=== PATIENT | male | born 1975 | race Caucasian/White ===

== ENCOUNTER 2024-10-08 09:02 | Emergency (ER) | payer OTHER, SELFPAY ==
[2024-10-08 09:06] VITALS: BP 137/89; PULSE 74; TEMP 36.7; O2SAT 100; BMI 21.3
--- NOTE | 2024-10-08 09:13 | ECG_ITS ---
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
[2024-10-08 09:26] LABS: Basophils Percent Auto 0.3 % (0.2-2.0); Eosinophils Percent Auto 0.5 % (0.9-7.0); Hematocrit 42.8 % (42.0-54.0); Hemoglobin 14.8 g/dL (14.0-18.0); Immature Granulocytes Abs Auto 0.04 10^3/uL (0.00-0.03); Immature Granulocytes Pct Auto 0.5 % (0.0-0.5); Lymphocytes Percent Auto 10.8 % (20.5-60.0); Mean Corpuscular HGB Conc 34.6 g/dL (29.9-35.2); Mean Corpuscular Hemoglobin 30.9 pg (25.9-34.0); Mean Corpuscular Volume 89.4 fL (80.0-94.0); Mean Platelet Volume 8.6 fL (9.5-13.5); Monocytes Absolute Auto 0.6 10^3/uL (0.3-0.8); Monocytes Percent Auto 7.1 % (1.7-12.0); Neutrophils Absolute Auto 7.2 10^3/uL (1.4-6.5); Neutrophils Percent Auto 80.8 % (43.0-75.0); Platelet Count 276 10^3/uL (150-450); Red Blood Count 4.79 10^6/uL (4.70-6.10); Red Cell Distribution Width 11.8 % (11.0-15.0); White Blood Count 8.9 10^3/uL (4.0-11.0)
[2024-10-08 09:42] LABS: INR 1.05; Prothrombin Time 11.1 sec (9.0-11.6)
[2024-10-08 09:47] LABS: Alanine Aminotransferase 66 U/L (16-63); Albumin Globulin Ratio 1.1; Albumin Level 3.5 g/dL (3.4-5.0); Alkaline Phosphatase 111 U/L (46-116); Aspartate Amino Transferase 55 U/L (15-37); BUN Creatinine Ratio 15.4; Bilirubin Total 1.2 mg/dL (0.2-1.0); Calcium 8.2 mg/dL (8.5-10.1); Chloride 100 mmol/L (98-107); Estimated GFR (African America >60 (>=60 mL/min/1.73m^2); Estimated GFR (Non-African Ame >60 (>=60 mL/min/1.73m^2); Globulin 3.1 g/dL; Glucose 119 mg/dL (74-106); Sodium 138 mmol/L (136-145); Total Protein 6.6 g/dL (6.4-8.2); Troponin I High Sensitivity 6.1 pg/mL (4.0-76.1)
--- NOTE | 2024-10-08 09:57 | CT_ITS ---
[address] [address] Patient Name: FRANTZ ALEXANDER MRN: [id number] date: 1975 Sex: M Assigned Patient Location: ER Current Patient Location: ER Accession/Order Number: [id number] Exam Date: 10/08/2024 10:35 Report Date: 10/08/2024 11:34 At the request of: FRANKI VALDOVINOS Procedure: CT abdomen pelvis w con EXAMINATION: CT abdomen pelvis w con HISTORY: pancreatitis hx abd pain COMPARISON: No relevant comparison available. TECHNIQUE: CT images were created with IV contrast. Axial, Coronal, and Sagittal images. Dose reduction techniques were achieved by using automated exposure control and/or adjustment of mA and/or kV according to patient size and/or use of iterative reconstruction technique. FINDINGS: LUNG BASES: No visible pulmonary or pleural disease. LIVER: No enlargement, atrophy, abnormal density, or significant focal lesion. BILIARY: No visible dilatation or calcification. PANCREAS: Enlargement of the pancreatic head with immature changes including edema and small amount of fluid. SPLEEN: No enlargement or focal lesion. ADRENALS: No mass or enlargement. KIDNEYS: No mass, obstruction, or calcification. BOWEL/MESENTERY: No visible mass, obstruction, or bowel wall thickening. Normal appendix AORTA/VASCULAR: No aneurysm or dissection. RETROPERITONEUM: No mass or adenopathy. LYMPH NODES: No adenopathy. URINARY BLADDER: No visible focal wall thickening, lesion, or calculus. PELVIC ORGANS: No visible mass. Pelvic organs appropriate for patient age. ABDOMINAL WALL: 2 cm umbilical hernia containing mesenteric fat without strangulation BONES: No bony lesion or fracture. OTHER: Negative. CT/CT abdomen pelvis w con IMPRESSION: Acute pancreatitis without evidence of pancreatic necrosis. Electronically authenticated by: LINO NICE Date: 10/08/2024 11:34
[2024-10-08] MEDS: 0.9 % SODIUM CHLORIDE 1,000 ML 1000 ML IV (10:18)
[2024-10-08] MEDS: ONDANSETRON PF 4 MG/2 ML VIAL IV (10:20)
[2024-10-08] MEDS: FAMOTIDINE/PF 20 MG/2 ML VIAL IV (10:21)
[2024-10-08] MEDS: KETOROLAC TROMETHAMINE 30 MG/ML VIAL 15 MG IVP (10:21)
[2024-10-08 10:23] VITALS: BP 137/84; PULSE 52; O2SAT 100
--- NOTE | 2024-10-08 11:47 | ED_ITS ---
HPI - Abdominal Pain General Chief Complaint: Abdominal Pain Stated Complaint: ABDOMINAL PAIN Time Seen by Provider: 10/08/24 09:13 Source: patient Mode of arrival: ambulance Limitations: no limitations History of Present Illness HPI narrative: The patient is a 49-year-old male who is coming to the ER with abdominal pain for the last few days he mentioned that he had a history of alcoholic pancreatitis He did drink significantly over the Patient complaining of epigastric discomfort and nausea He denies any fever or chills or any other concerns Related Data Home Medications ?Medication ?Instructions ?Recorded ?Confirmed alprazolam 1 mg tablet 1 mg PO QID 10/08/24 10/08/24 duloxetine 60 mg capsule,delayed 120 mg PO DAILY 10/08/24 10/08/24 release hydroxyzine pamoate 25 mg capsule 25 mg PO Q8H PRN anxiety 10/08/24 10/08/24 hydroxyzine pamoate 50 mg capsule 50 mg PO .QHS 10/08/24 10/08/24 omeprazole 40 mg capsule,delayed 40 mg PO DAILY 10/08/24 10/08/24 release trazodone 50 mg tablet 50 mg PO .QHS 10/08/24 10/08/24 Previous Rx's ?Medication ?Instructions ?Recorded famotidine 20 mg tablet (Pepcid) 20 mg PO BID #10 tabs 10/08/24 meloxicam 15 mg tablet 15 mg PO DAILY PRN pain #10 tabs 10/08/24 ondansetron 4 mg disintegrating 4 mg PO Q8H PRN nausea and 10/08/24 tablet vomiting #14 tabs Allergies Allergy/AdvReac Type Severity Reaction Status Date / Time No Known Drug Allergies Allergy Verified 10/08/24 09:03 Review of Systems ROS Status of ROS 10 or more systems reviewed and unremark able except as noted in history and below PFSH PFSH Social History Little interest or pleasure in doing things: not at all Feeling down, depressed, or hopeless: not at all Exam Narrative Exam Narrative: Nurses notes and vital signs reviewed and patient is not hypoxic. General: Well-appearing and in no apparent distress. Skin: Warm, dry, no pallor noted. No rash. Head: Normocephalic, atraumatic. Neck: Supple, non-tender. Eye: Pupils are equal, round and EOMI. No scleral icterus. Ears, Nose, Mouth, and Throat: TM are clear, no nasal mucosal hypertrophy. Oral mucosa is moist, no posterior oropharynx erythema, uvula is mid-line Cardiovascular: Regular Rate and Rhythm without murmur, gallop or rub. Respiratory: No accessory muscle use or respiratory distress. Lungs are clear to auscultation, no wheezing, rales or rhonchi Chest Wall: no tenderness Back: No midline thoracic or lumbar vertebral tenderness. No CVA tenderness Musculoskeletal: normal ROM, no calf or popliteal tenderness, no lower extremity edema/swelling GI: Abdomen is soft, there is discomfort upon palpation of the epigastric area but there is negative [place] and the patient have tenderness with fullness to the abdomen Neurological: A&O x4. No cranial nerve dysfunction observed. No truncal ataxia. Moves all extremities. Sensation intact. Psychiatric: Cooperative and interactive. Normal mood and affect. Constitutional Vital Signs, click to edit/add: Last Vital Signs Temp 98.0 F 10/08/24 09:06 Pulse 52 L 10/08/24 10:23 Resp 18 10/08/24 10:23 BP 137/84 10/08/24 10:23 Pulse Ox 100 10/08/24 10:23 O2 Del Method Room Air 10/08/24 10:23 Course Vital Signs Vital signs: Vital Signs Temperature 98.0 F 10/08/24 09:06 Pulse Rate 74 10/08/24 09:06 Respiratory Rate 20 10/08/24 09:06 Blood Pressure 137/89 10/08/24 09:06 Pulse Oximetry 100 10/08/24 09:06 Oxygen Delivery Method Room Air 10/08/24 09:06 Temperature 98.0 F 10/08/24 09:06 Pulse Rate 52 L 10/08/24 10:23 Respiratory Rate 18 10/08/24 10:23 Blood Pressure 137/84 10/08/24 10:23 Pulse Oximetry 100 10/08/24 10:23 Oxygen Delivery Method Room Air 10/08/24 10:23 MDM - Abdominal Pain MDM Narrative Medical decision making narrative: EKG in the ER showing sinus rhythm with a heart rate of [address] elevation or depression The patient blood workup shows no acute significant pathology regarding the CBC but the chemistry shows some elevated lipase and a picture of possible pancreatitis CT of the abdomen and pelvis with contrast shows pancreatitis with no cholecystitis The patient already tolerating p.o. intake he was feeling much better after being treated supportively with Zofran Right now the patient is feeling better and he wants to leave with Zofran and liquid diet for the next few days he was instructed about the importance of hydration and coming back in case of new symptoms The patient is to follow up with primary care physician in next 2-3 days or to return to the emergency department should any of the signs or symptoms worsen or new symptoms develop. The patient agrees with the following Diagnosis and Treatment plan and the patient will be discharged home. Lab Data Labs: Lab Results 10/08/24 Range/Units 09:20 WBC 8.9 (4.0-11.0) 10^3/uL RBC 4.79 (4.70-6.10) 10^6/uL Hgb 14.8 (14.0-18.0) g/dL Hct 42.8 (42.0-54.0) % MCV 89.4 (80.0-94.0) fL MCH 30.9 (25.9-34.0) pg MCHC 34.6 (29.9-35.2) g/dL RDW 11.8 (11.0-15.0) % Plt Count 276 (150-450) 10^3/uL MPV 8.6 L (9.5-13.5) fL Neut % (Auto) 80.8 H (43.0-75.0) % Lymph % (Auto) 10.8 L (20.5-60.0) % [place] % (Auto) 7.1 (1.7-12.0) % Eos % (Auto) 0.5 L (0.9-7.0) % Baso % (Auto) 0.3 (0.2-2.0) % Neut # (Auto) 7.2 H (1.4-6.5) 10^3/uL Lymph # (Auto) 1.0 L (1.2-3.8) 10^3/uL [place] # (Auto) 0.6 (0.3-0.8) 10^3/uL Eos # (Auto) 0.0 (0.0-0.7) 10^3/uL Baso # (Auto) 0.0 (0.0-0.1) 10^3/uL Abs Immat Gran (auto) 0.04 H (0.00-0.03) 10^3/uL Imm/Tot Granulo (auto) 0.5 (0.0-0.5) % PT 11.1 (9.0-11.6) sec INR 1.05 Sodium 138 (136-145) mmol/L Potassium 5.0 (3.5-5.1) mmol/L Chloride 100 (98-107) mmol/L Carbon Dioxide 31.0 (21.0-32.0) mmol/L Anion Gap 12.0 BUN 18.0 (7.0-18.0) mg/dL Creatinine 1.17 (0.70-1.30) mg/dL Est GFR ( Amer) >60 (>=60 mL/min/1.73m^2) Est GFR (Non-Af Amer) >60 (>=60 mL/min/1.73m^2) BUN/Creatinine Ratio 15.4 Glucose 119 H (74-106) mg/dL Calcium 8.2 L (8.5-10.1) mg/dL Magnesium 2.0 (1.8-2.4) mg/dL Total Bilirubin 1.2 H (0.2-1.0) mg/dL AST 55 H (15-37) U/L ALT 66 H (16-63) U/L Alkaline Phosphatase 111 (46-116) U/L Troponin I High Sens 6.1 (4.0-76.1) pg/mL Total Protein 6.6 (6.4-8.2) g/dL Albumin 3.5 (3.4-5.0) g/dL Globulin 3.1 g/dL Albumin/Globulin Ratio 1.1 Lipase 193.0 H (16.0-77.0) U/L Discharge Plan Discharge Chief Complaint: Abdominal Pain Clinical Impression: Acute alcoholic pancreatitis Patient Disposition: Home, Self-Care Time of Disposition Decision: 11:49 Condition: Good Prescriptions / Home Meds: New ondansetron 4 mg tablet,disintegrating 4 mg PO Q8H PRN (Reason: nausea and vomiting) Qty: 14 0RF famotidine [Pepcid] 20 mg tablet 20 mg PO BID Qty: 10 0RF meloxicam 15 mg tablet 15 mg PO DAILY PRN (Reason: pain) Qty: 10 0RF No Action alprazolam 1 mg tablet 1 mg PO QID duloxetine 60 mg capsule,delayed release(DR/EC) 120 mg PO DAILY hydroxyzine pamoate 25 mg capsule 25 mg PO Q8H PRN (Reason: anxiety) hydroxyzine pamoate 50 mg capsule 50 mg PO .QHS omeprazole 40 mg capsule,delayed release(DR/EC) 40 mg PO DAILY trazodone 50 mg tablet 50 mg PO .QHS Print Language: Belarusian Instructions: Pancreatitis (ED), Full Liquid Diet (DC) Referrals: Sai Santos NP [Primary Care Provider] - 1 week Discharge Date/Time: 10/08/24 12:23
== END 2024-10-08 12:23 | disposition home or self-care (01) ==
PROVIDERS: Emergency Provider Emergency Medicine; PCP Nurse Practitioner Family
DX: K85.20 Alcohol induced acute pancreatitis without necrosis or infection (principal)
CPT/HCPCS: 36415; 74177; 80053; 83690; 83735; 84484; 85025; 85610; 93005; 96374; 96375; 99285; J1885; J2405; Q9967

== ENCOUNTER 2024-10-15 11:05 | Outpatient (OUT) | payer OTHER, SELFPAY ==
--- OUTSIDE RECORDS SUMMARY | 2024-10-15 11:29 | XMS_ITS | CCD ---
Demographics Address [address] [place] [address] Home Phone Mobile Phone Preferred Language en Marital Status Single Jehovah'S Witness Affiliation Unknown Race Unknown Ethnic Group or Author Organization [facility] Care Team Providers Care Supply Chain Associate Name Role Phone TONY HAMMOND III Unavailable Unavail able Lady Turner Primary Care Provider LADY TURNER Referring Unavailable JOHNNY, LADY No Primary Care Unavailable CLINKAYLIN, LADY No Primary Care Unavailable MARTA WILKINS Attending Unavailable PRINCE, DR LIDA Alvarez Admitting Unavailable PRINCE, DR LIDA Alvarez Consulting Unavailable [facility] DR GRAFF Primary Care Unavailable PRINCE, DR LIDA Alvarez Attending Unavailable SHAKIRA GIPSON Consulting Unavailable KASHIF, DR ZABALA Consulting Unavailable MISC, DR GRAFF Primary Care Unavailable KASHIF, DR ZABALA Attending Unavailable KASHIF, DR ZABALA Admitting Unavailable LADY TURNER Primary Care Physician Gemini Pendleton Unavailable Unavailable Art Mclain Attending Unavailab Art Dunne Admitting Unavailab le Lady Turner DNP Primary Care Provider Allergies Allergy Classification Reported Allergen(s) Allergy Type Date of Onset Reaction(s) Facility (2 sources) Codeine Drug Allergy 06-23-2017 Itching, Rash [facility], [place] (1 source) Codeine Drug Allergy [facility] Repository Medications Current Medications Medication Drug Class(es) Dates Sig (Normalized) Sig (Original) ALPRAZolam 1 mg oral tablet (4 sources) Benzodiazepine Start: 03-27-2019 take 1 tablet by mouth once daily ALPRAZolam (XANAX) 1 MG tablet Take 1 tablet by mouth. 4x per day 0 03/27/2019 Active Start: 07-18-2017 take 1 mg by mouth t hree times daily as needed for anxiety alprazolam 1 mg, Oral, TID, PRN as needed for anxiety, Refills(s) 0 Start Date: 07/18/17 Status: Ordered amitriptyline hydrochloride 10 mg oral tablet (2 sources) Tricyclic Antidepressant Start: 05-25-2020 take 1 tablet by mouth once daily at bedtime amitriptyline 10 mg Tab 10 mg = 1 tab(s), Oral, Once a day (at bedtime), # 90 tab(s), Refills(s) 3, Pharmacy: [facility] #[id number], [id number], cm, 05/25/20 7:57:00 EDT, Height/Length Measured, 81.6, kg, 05/25/20 7:57:00 EDT, Weight Measured Start Date: 05/25/20 Status: Ordered benzoyl peroxide 0.025 mg/mg topical gel (1 source) Start: 12-25-2018 Benzoyl Peroxide 2.5 % GEL apply 1 dose topically daily 60 g 5 12/25/2018 Active DULoxetine 60 mg delayed release oral capsule (4 sources) Serotonin and Norepinephrine Reuptake Inhibitor Start: 03-27-2019 DULoxetine (CYMBALTA) 60 MG extended release capsule One daily 0 03/27/2019 Active Start: 07-29-2018 take 1 capsule by mo [facility] once daily DULoxetine (CYMBALTA) 30 MG extended release capsule take 1 capsule by mouth once daily 30 capsule 2 07/29/2018 Active famotidine 20 mg oral tablet (1 source) Histamine-2 Receptor Antagonist Start: 10-08-2024 take 1 tablet by mouth twice daily famotidine (PEPCID) 20 MG tablet Take 1 tablet by mouth 2 times daily 10/08/2024 Active hydrOXYzine pamoate 50 mg oral capsule (3 sources) Antihistamine Start: 07-18-2017 take 50 mg by mouth twice daily hydrOXYzine 50 mg, Oral, BID, Refills(s) 0, Anxiety Start Date: 07/18/17 Status: Ordered take 1 tablet by [facility] twice daily as needed for anxiety hydrOXYzine (ATARAX) 50 MG tablet Take 1 tablet by mouth 2 times daily as needed for Anxiety Active hyoscyamine sulfate 0.125 mg oral tablet (2 sources) Start: 12-04-2017 take 0.125 mg by mouth twice daily as needed for pain Levsin 0.125 mg, Oral, BID, PRN Pain, Refills(s) 0, Pain Start Date: 2/8/18 Status: Ordered ibuprofen 800 mg oral tablet (1 source) Nonsteroidal Anti-inflammatory Drug Start: 07-26-2019 take 1 tablet by mouth every eight hours as needed for pain ibuprofen (ADVIL;MOTRIN) 800 MG tablet Take 1 tablet by mouth every 8 hours as needed for Pain 30 tablet 1 07/26/2019 Active meloxicam 15 mg oral tablet (1 source) Nonsteroidal Anti-inflammatory Drug Start: 10-08-2024 meloxicam (MOBIC) 15 MG tablet Take 1 tablet by mouth as needed for Pain 10/08/2024 Active naltrexone hydrochloride 50 mg oral tablet (1 source) Opioid Antagonist Start: 10-12-2024 take 1 tablet by mouth once daily naltrexone (DEPADE) 50 MG tablet Take 1 tablet by mouth daily 30 tablet 5 10/12/2024 Active omeprazole 40 mg delayed release oral capsule (4 sources) Proton Pump Inhibitor Start: 10-12-2024 take 1 capsule by mouth once daily omeprazole (PRILOSEC) 40 MG delayed release capsule TAKE 1 CAPSULE BY MOUTH EVERY DAY 90 capsule 1 10/12/2024 Active Start: 09-29-2018 take 1 capsule by mo [facility] once daily omeprazole (PRILOSEC) 40 MG delayed release capsule take 1 capsule by mouth once daily 30 capsule 5 09/29/2018 Active Start: 08-08-2015 take 40 mg by mouth once daily omeprazole 40 mg, Oral, Daily, Refills(s) 0, Control of stomach acid Start Date: 08/08/15 Status: Ordered rifAXIMin 550 mg oral tablet (2 sources) Rifamycin Antibacterial Start: 09-18-2020 take 1 tablet by mouth three times daily rifaximin 550 mg oral tablet 550 mg = 1 tab(s), Oral, TID, # 42 tab(s), Refills(s) 1, Pharmacy: [facility]/pharmacy #[id number], 185, cm, 07/10/20 13:06:00 EDT, Height/Length Dosing, 78.4, kg, 07/10/20 13:06:00 EDT, Weight Dosing Start Date: 09/18/20 Status: Ordered tamsulosin hydrochloride 0.4 mg oral capsule (2 sources) alpha-Adrenergic Gustavo Start: 12-05-2017 take 0.4 mg by mouth once daily tamsulosin 0.4 mg, Oral, Daily, Refills(s) 0, Urinary discomfort Start Date: 12/05/17 Status: Ordered tiZANidine 4 mg oral tablet (1 source) Central alpha-2 Adrenergic Agonist Start: 04-21-2019 take 1 tablet by mouth three times daily tiZANidine (ZANAFLEX) 4 MG tablet Take 1 tablet by mouth 3 times daily 90 tablet 2 04/21/2019 Active traZODone hydrochloride 50 mg oral tablet (2 sources) Serotonin Reuptake Inhibitor Start: 09-21-2024 take 1 tablet by mouth once daily at bedtime traZODone (DESYREL) 50 MG tablet Take 1 tablet by mouth nightly at bedtime. 09/21/2024 Active Start: 02-19-2019 traZODone (DOT YREL) 50 MG tablet daily as needed 0 02/19/2019 Active Problems Active Problems Problem Classification Problem Date Documented Date Episodic/Chronic Abdominal pain (1 source) Unspecified abdominal pain; Translations: [UNSPECIFIED ABDOMINAL PAIN] Onset: 12-04-2021 Episodic Alcohol-related disorders (5 sources) Alcohol abuse; Translations: [Alcohol dependence, in remission] Onset: 06-23-2017 06-23-2017 Chronic Anxiety disorders (5 sources) Anxiety; Translations: [Anxiety disorder, unspecified] Onset: 03-25-2017 03-25-2017 Chronic Esophageal disorders (1 source) Gastroesophageal reflux disease without esophagitis; Translations: [Gastro-esophageal reflux disease without esophagitis] 10-12-2024 Chronic Fluid and electrolyte disorders (1 source) Dehydration; Translations: [Dehydration] Onset: 04-22-2022 Episodic Mood disorders (3 sources) Major depressive disorder, single episode, unspecified; Translations: [Depression] Onset: 12-04-2021 01-07-2014 Chronic Nonspecific chest pain (4 sources) Chest pain, unspecified; Translations: [CHEST PAIN UNSPECIFIED] Onset: 12-03-2021 Episodic Other aftercare (1 source) Other terminologist (current) drug therapy; Translations: [OTH SKILLED NURSING CURRENT DRUG THERAPY] Onset: 12-04-2021 Episodic Other liver diseases (1 source) Abnormal levels of other serum enzymes; Translations: [ABNORMAL LEVELS OTHER SERUM ENZYMES] Onset: 12-04-2021 Episodic Pancreatic disorders (not diabetes) (5 sources) Acute pancreatitis; Translations: [Alcohol-induced acute pancreatitis] Onset: 07-29-2016 Resolved: 12-17-2021 07-29-2016 Episodic Residual codes; unclassified (1 source) Procedure carried out on subject; Translations: [Encounter for prophylactic measures, unspecified] Onset: 04-22-2022 Episodic Residual codes; unclassified (2 sources) Current drinker 07-15-2017 Episodic Residual codes; unclassified (2 sources) Tobacco user 08-11-2013 Episodic Comment on above: Added secondary to s ocial history documentation. Spondylosis; intervertebral disc disorders; other back problems (3 sources) Prolapsed cervical intervertebral disc; Translations: [Pain in cervical spine] Onset: 06-23-2017 07-18-2017 Chronic Spondylosis; intervertebral disc disorders; other back problems (6 sources) Radiculopathy, cervical region; Translations: [Pain in cervical spine] Onset: 05-15-2017 06-23-2017 Episodic Suicide and intentional self-inflicted injury (2 sources) H/O: attempted suicide 07-15-2017 Episodic Unclassified (1 source) Alcohol induced acute pancreatitis without necrosis or infection; Translations: [Alcohol induced acute pancreatitis without necrosis or infection] Onset: 05-15-2017 Unclassified (1 source) Closed fracture of distal left fibula; Translations: [Closed fracture of distal end of left fibula, unspecified fracture morphology, initial encounter] Past or Other Problems Problem Classification Problem Date Documented Da te Episodic/Chronic Other connective tissue disease (3 sources) Pain in left leg; Translations: [PAIN IN LEFT LEG] Onset: 06-14-2021 Episodic Other injuries and conditions due to external causes (2 sources) Laceration - injury Onset: 08-11-2013 01-07-2014 Episodic Other liver diseases (1 source) Hepatic failure, unspecified without coma; Translations: [HEPATIC FAILURE UNS WITHOUT COMA] Onset: 06-18-2021 Episodic Skin and subcutaneous tissue infections (3 sources) Cellulitis of left lower limb; Translations: [Cellulitis of right lower limb] Onset: 06-18-2021 Episodic Viral infection (1 source) Disease caused by 2019-nCoV; Translations: [COVID-19] Results Test Name Value Interpretation Reference Range Facility CBC with Auto Differentialon 10-12-2024 Basophils (Bld) [#/Vol] 0.02 10*3/uL [facility] Basophils/100 WBC (Bld) 0 % 0 - 2 % B on [facility] Eosinophils (Bld) [#/Vol] 0.24 10*3/uL [facility] Eosinophils/100 WBC (Bld) 4 % 0 - 5 % [facility] Erythrocyte distribution width (RBC) [Ratio] 12.0 % Low 12.1 - 15.2 % [facility] Hematocrit (Bld) [Volume fraction] 39.8 % Low 41.0 - 53.0 % [facility] Hemoglobin (Bld) [Mass/Vol] 14.2 g/dL 13.5 - 17.5 g/dL [facility] Immature granulocytes (Bld) [#/Vol] 0.00 10*3/uL [facility] Immature granulocytes/100 WBC (Bld) 0 % 0 - 5 % [facility] Interpretation and review of laboratory results Abnormal [facility] Lymphocytes/100 WBC (Bld) 22 % 13 - 44 % [facility] Lymphocytes/100 WBC (Bld) 1.21 % [facility] MCH (RBC) [Entitic mass] 31.7 pg 26.0 - 34.0 pg [facility] MCHC (RBC) [Mass/Vol] 35.7 g/dL 31.0 - 37.0 g/dL [facility] MCV (RBC) [Entitic vol] 88.8 fL 80.0 - 100.0 fL [facility] Monocytes/100 WBC (Bld) 8 % 5 - 9 % B on [facility] Monocytes/100 WBC (Bld) 0.42 % B on [facility] Neutrophils/100 WBC (Bld) 66 % 39 - 75 % [facility] Platelet mean volume (Bld) [Entitic vol] 8.7 fL 6.0 - 12.0 fL [facility] Platelets (Bld) [#/Vol] 223 10*3/uL [facility] RBC (Bld) [#/Vol] 4.48 10*6/uL Low 4.50 - 5.9 0 m/uL [facility] Segmented neutrophils/100 WBC (Bld) 3.56 % [facility] WBC other (Bld) [#/Vol] 5.5 B on [facility] Comprehensive Metabolic Pane dianne 10-12-2024 Albumin [Mass/Vol] 4.1 g/dL 3.5 - 5.2 g/dL [facility] ALP [Catalytic activity/Vol] 130 U/L High 40 - 129 U/L [facility] ALT [Catalytic activity/Vol] 20 U/L 5 - 41 U/L [facility] Anion gap [Moles/Vol] 10 mmol/L 8 - 16 mmol/L [facility] AST [Catalytic activity/Vol] 16 U/L NINF - 40 U/L [facility] Bilirubin [Mass/Vol] 0.4 mg/dL 0.3 - 1 .2 mg/dL [facility] Calcium [Mass/Vol] 8.4 mg/dL Low 8.6 - 10. 4 mg/dL [facility] Chloride [Moles/Vol] 97 mmol/L Low 98 - 10 7 mmol/L [facility] CO2 [Moles/Vol] 29 mmol/L 20 - 31 mmol/L [facility] Creatinine [Mass/Vol] 0.8 mg/dL 0.7 - 1.2 mg/dL [facility] Est, [place] Rate - PINF [facility] Comment on above: These results are not intended for use in patients <18 years of age. eGFR results are calculated without a race factor using the 2020 CKD-EPI equation. Careful clinical correlation is recommended, particularly when comparing to results calculated using previous equations. The CKD-EPI equation is less accurate in patients with extremes of muscle mass, extra-renal metabolism of creatine, excessive creatine ingestion, or following therapy that affects renal tubular secretion. Glucose [Mass/Vol] 88 mg/dL 70 - 99 mg/dL [facility] Interpretation and review of laboratory results Abnormal [facility] Potassium [Moles/Vol] 3.8 mmol/L 3.7 - 5.3 mmol/L [facility] Protein [Mass/Vol] 6.9 g/dL 6.4 - 8.3 g/dL [facility] Sodium [Moles/Vol] 136 mmol/L 135 - 144 mmol/L [facility] Urea nitrogen [Mass/Vol] 15 mg/dL 6 - 20 mg/dL [facility] Urea nitrogen/Creatinine [Mass ratio] 19 mg/mg 9 - 20 [facility] Lipaseon 10-12-2024 Interpretation and review of laboratory results Abnormal [facility] Lipase [Catalytic activity/Vol] 600 U/L Critically high 13 - 60 U/L [facility] Comment on above: CORRECTED ON 10/12 A T 1203: PREVIOUSLY REPORTED >3000 [facility] Insurance Correspondence Off [facility] 06-20-2022 Insurance Correspondence Office [id number]#1.00CD :127 [facility] Insurance Correspondence Off [facility] 05-23-2022 Insurance Correspondence Office [id number]#1.00CD :127 [facility] Insurance Correspondence Office [id number]#1.00CD :127 [facility] Insurance Correspondence Office [id number]#1.00 CD:127 [facility] Coding Summary.on 05-14-2022 Coding Summary. CD:[id number] Gh0 bWw+PGhlYWQ+YV7LGRPeD18 ojVZlcH6MG3gVJP1DMHEKXL HAML0WSE2peSH8ZGeiS3Gmo iAv QxsmxUNnJO55WTk1AWH4bFs iDBgyhE0qgAIjB9s5OdFvWP 32vS02LIplSKHpIxU9MyJms jsgbWFy T9kcDhGfjHVlFje+PHRhYmx lIHdpZHRoPScxMDAlJyBzdH cuHW3oWk3aXPSqJWDmqQstn HNlOiBj y1vhDDVyQIzpAN6mvUcwS4L swHU8LEPsx4j2Pv92hSK+PH XeSZK1mFpjIFkwr680BmMxz 3leXKD8 jNNrHClpSDS4L86cf9Z9VXC qCVExLOA9eCA7nK7eiMeyag rdJ4VdcEBnGkR4SNT8mVIou L5gsEne pwkfyK6pFei+R28BAQ5TRVT PTK5KDec7Q1YaZzrhbAE+PC 75FZUjGB87sNIejVWqu0sxy Ox6YmLw KGMsCGM4uOqxACxtk8ZcBUU oL30scUUuy0Z1AQPhiFpnuE RfAfBzyYN4uB0qJPaowwvoz 2hvdzsn Bozoj9uvov68wZ39J33wJNt sBWPuUPC2JPTiNKDatKotwi 1qvQ4zPg6+KGswc8zhb6rww Bq0FxXs MVKumqGmmWhaRWR3d9KqOl6 5C7SejCntn8IfOep2rm34uD Puo4L1nFY9UDuvBLXpsQ0iR WxlZnQ6 LTPgVmVyxS65tAIxHMwpSn1 cfQvwuMiyKH4mVJVkdeciMV RniA8kISCpwCKpcVpcWB7fO TBpbjtm u229VjUbSAB1PGBmgJSgR5J zcW5cExQwMOIlUKQgZ7DksY RcMAdrQ974TIgxNrP2OQUpm jXdG8Ox KKUkvAlrAkT6z6Q8Tw3Ge0G djcacUIL4PXktOIQ2XhN7Qt HgVzK2S8AhPjx5CTBdtVjlZ W3eK2Vs VUDugbwmovcpaON3FKBeNVO gcS99zJYpQVolFr4xf6C7y1 55DOExKHNmlZ63Xz6oyDcaR TBwdCBU wG9jprwtf4edpyfiDmMcDPN pZAs2PCf9OWLirFfrDiYmVS M9JaZ3NRF4iGBwhX3qoSzdw lblvD4g Oyc+M16rkM5nKTP9LNV5xus kLBWmkxAkMM24MS89T4UeNv wvdGFibGU+PGRpdiBzdHlsZ L3lGgMw b4ncd9YvVZfeF4HvSTNcKSz sJig9NAHzHPQ2xHP2kW4vXO JoVTgit6F8hPC0N7CwhaNdk r5lq3xr FETjGZcdR81meGIcs9X3TLQ ufXW1YQZzwIlmEvVapC27So c+XJXmhQrci1PkWjlxn4lkk 0zyuLi3 NpHpXLSlfqKhkTvnXEZ5p7R qAk96W66jIFbiJJWfZVWeDK WcHMSdtFignu2peF6dUp2+P GNvbCB3 aSP1iN8xQGDeReG6PSkfF21 0GyFwdXSaUjqbd8kpm6tuvY o1NbMpWDIxdnWkfTqeVRB5m 4LxNv83 W84rQVwvJPXpTBXuNACxBSM ovOjeog1tiV4bDw0+PC9jb2 ksos63wU29kGD+GQEdIUY4c WxlPSdw JWNprR2yLKltXtP2SYJeLyI orU91yCLbWHivJx4szWxssK suDS1aMDTtjvscb407JpHhj 2xkIDEw dPXaGFgqNZU1G68hd6P4YYD yHSGbYZI8pQG4zS1ksBaqoj ogbGVmdDsgdmVydGljYWwtY UhcF441 IHRvcDsnPlBhdGllbnQgTmF bAUg1W0YtDdb0XJNjtAwpFV 7fxROvHPqeDp7loCweiLwdT P1uOHOq ykici930QaGsd5dgRTRtbHO hZFjeEVQ1P08fs0B9YZJqWY IwNHX9gUC0gY5gmWydjvush GVmdDsg ebZiqYskYJfkOEkqW000TGR kqVafDfLbqjOdGOIdjPR3CZ 69BQ41zODgu2N1bIF7I7OwA GRpbmct tujwtKB4NVBhHTLgvT19Gq1 kyJmjRt2tARZrEYD5QIQfzB FcG5DkaQ3lGtWrILTyPOYbE 3RleHQt MEvlZ342OJnyAjY8ZCOgoaW jW1WpDBHioSvmPpM0c3Q1Xr 0KR6Y1PM25KB80pDFks1Z8l FP9A8Pl YCAglntdbyiyzXF5RWGjIMM brC59Cp8osPvxDw7wMJIvSH K7CHZxyNIkA7TsdV8uTfQsQ DAwMDAw T9YgmBDrIWqnE611RTjzWuM 9NZTudnLyU4LdJMAneDcwIb B3z1T7Df2KITt1AB90ZP61t QTfv4Q1 pPS9X8QyBIInuoxdubclfNZ 2RWBfCFFlwD54Vf5seTalHi 1uRYXyRBV1RIFuhUUcA7Uit Y7iBmOj SVZkRKAbV7GrqSDcNGifX09 3KHiaLpF5AWNuwrEtR1OdZI TorKatIeI5b8E6Io6HDATfQ B41PLV0 gZU4TX40PA30G0VgLxciqLX ibGU+PHRhYmxlIHdpZHRoPS djYOXaWuXeqLdzWG5bHu2kZ GVyLWNv jRaguANbZvIum5hpYSYsZWo iND3tyOriO6FfcAR9KRSgh6 b2Wr72M32pP0RzgFY+PGNvb YM9jWG8 aW9fJjErTgB9ARmrG643EwL pbRVfGxhcg3eil8roeYt7Pk I6FYOpprXbuSkqGRG8t0EbM m17E63b IHdpZHRoPSIxNSUiIHZhbGl btc5zrC9xPr1+WTJbmTS5jZ X3qB3nUlJiSkZ4AStiM635T nRvcCIv Fwhpi9ekf6kcyYz8IeDvLRH nzvFpfKpiPOG9u7MxLc14A2 OjoRamm3PgUys1uj96tUXqx 9U9fQI4 F3UdHMYxfrrpfPOfbFqdSI4 aVQUtzozuLTEudX1rUKZjR9 e7EfSxVjH0EGbyT2RtfrQ2U DEwcHQg BMggYSK9N07uy0E8DXBqQGE tKQU0tWD3eT8sjCecrlkalY VmdDsgdmVydGljYWwtYWxpZ 246IHRv uUyfZITctB7wUZLycESxyXp pWZ7lRIKllcijGoAQOFAXQq tzG8kTREEFJXTDOYH8S8SgQ pi6SICg hKfxDR4ylYXhSXbgWn6anCl kxPdvLQ5dOOKhhwspZKXbuT 0nTJYvhTMygAzaFI8xVYOko tbna985 PyWqERJ7YCDbaBEbZ2QyrI9 zTiJxRHEuYTTmA9KxtIIxIQ scQ855GRmxKaA9FTKcbrSvW 2FsLWFs xNjkRfA5a0C7Sc8yTb5cKS4 aPAxfJX58ZB64eUExx4F6mI G4F5EgINSnvjgnzdwbcWC0P DAuMDUw zO74yPLpVUarXc1ce6O5t86 3PKMtPQVliZ74Hs6ifWxsBN CtuZTSgS2kilfnk5xanqbqB zAwMDAw XTr1JRb8QJPifSodHxCwJSO 1ZjH4JUL0iZRofU8kqSlmtg rhuV1dKsj+MJylXCVsejD5Z 4XnTqv8 SPWglDfuGD7oiGYrRYkeCz9 ysFyycDrkQQ0uQGFppfyvTR QofL4mTCHexHToiJgpKV7zW TBpbjtm x952MgUdAQM3YOEntJYcW3W feC7vFwMoBFLnELVqL9IxzZ HxDNheI412VJhqKnM7OBOdb eYtD8Dn OFCjsCtbFjT9k9H9Yi5KQPq iOR63FC30tUOio1S4gGI6B0 UcEVLswughogcwyKI8AAApT DUwaW47 aRHlZXlzDg4eh2I0d641FMQ yFZOwcQ10Es1htRfiHUChwU WLeC6grhcok0rvxtwgZyXvY DAwMDt0 OKf0UUZofFgeDbEhUSJ9OfW 9TZR3lMUgcK7inQsibcshhN 9wOyc+QyTwoKGiuN8yMB72N P91E5Kz PjwvdGFibGU+PHRhYmxlIHd pZHRoPScxMDAlJyBzdHlsZT 4iAo3rADSjBLAgfPhspWYmM aHwx2qf ONLkZNupPS4nzLuzX3TyjYR 6AKHut9d8Pm67G53tU0EerC A+URVxjGH2hCO8zH4vIhLiS jD6GEuv A457JgWshEPsXnbeg4glb8j zuHs0DeYrVBZvuaGlrEvbFE G7z2SnRn48V49mYPrbZUJeH SIyMCUi EJTvnWclft8agS7jTr4+PGN jfWP1pJK1qK1fRkVfCnJ6IG gwZ839ApGosOWcIybwQ11hI 3JvdXA+ QPUgZcz1BXIpdLqyKD3veMB nINhbXh7jEBZ9NsOcYlMeFB stB8KpCVElxyamfhhawSC3J DAuMDUw lB99Yq7rwZggZo5sGHDyFUV 1UPRyiFTiT2LmsF3cBoCaZL MvYBMfO0NswEMiDYosV507C GxlZnQ7 VLMpqiSwA1JiYMRpkHndVgR 0t7K0Yo4SqVjaiQIyNT4zYw TvWOn9D9DsGgh8ZUQciWluE F0afYHk YRdwJk7itFljdIgdWX7cISI gdkyev018TyWke9cxSISiwF HxAEzvTRQ1X10yv6U8PTGmV DAwMDA7 hAU9tL8msUclnzvrcHRwtMc yukTppLedIGydDSffO591JR IsxWawJzUPBvh0K8UtNys0F CBzdHls QU5etXEjAIrbXt5vzImleZd iUR7qVRFbeuytj196WjCca0 grMEOfiYBsIGuzHSC7F32ja 5D5AXJd VFIkNCP5kRX4gB5jgChmqdz gbGVmdDsgdmVydGljYWwtYW leB723WFUioSkcDm8XDdk7W 6MoJus0 IBJauPmxWL6waTPeUJznEr1 idXvzdQbtYJ9rKHGilmufx5 15OrDgv6jqIERztIBxBXgzV UT5I15j e9I2UPDrSAJaPEN1zDZ5uB2 hbGlnbjogbGVmdDsgdmVydG vqZNdzASndO504PVGebLtzV lBheWVy OjwvdGQ+CJ12vh72I5ViCai jDds0OWNtODO9wBP1fQ4pRA MlVFkic0B8gOZ4E4PdldJzb h5oj4cp YXBz (more content not included)... Normal [facility] COVID-19 ([facility])on 05-13-2022 SARS-CoV-2 (COVID-19) RNA CALOS+probe Ql (Resp) Detected Abnormal Not Detected [facility] Comment on above: Result Comment: This test result should be correlated with clinical presentations and medical history by a healthcare provider to determine its clinical significance. This assay was performed by a reverse transcriptase real-time polymerase chain reaction (rt PCR) method on the [employer] system. This test has been authorized only for the detection of nucleic acid from SARS-CoV-2, not for any other viruses or pathogens. This test has not been FDA cleared or approved. This test has been authorized by FDA under an Emergency Use Authorization (EUA). This test is only authorized for the duration of time the declaration on that circumstances exist justifying the authorization emergency use of in vitro diagnostic tests for detection and/or diagnosis of COVID-19 infection under section 564 (b) (1) of the Act, 21 U.S.C. 360 bbb-3 (b) (1), unless authorization is terminated or revoked sooner. Performed By: #### 2 [id number] ####[place] [address] SARS-CoV-2 (COVID-19) RNA CALOS+probe Ql (Unsp spec) Pass Normal Pass [facility] Comment on above: Performed By: #### 2 [id number] ####[place] [address] Specimen source Nom (Unsp spec) Nasal Normal [facility] Comment on above: Performed By: #### 2 [id number] ####[place] [address] ADMITTED TO INTENSIVE CARE UNIT FOR CONDITION OF INTEREST:FIND:PT: NO Normal [facility] Comment on above: Performed By: #### 2 [id number] ####[place] [address] EMPLOYED IN A HEALTHCARE SETTING:FIND:PT: NO Normal [facility] Comment on above: Performed By: #### 2 [id number] ####[place] [address] FIRST TEST FOR CONDITION OF INTEREST:FIND:PT: Unknown Normal [facility] Comment on above: Performed By: #### 2 [id number] ####[place] [address] HAS SYMPTOMS RELATED TO CONDITION OF INTEREST:FIND:PT: YES Normal [facility] Comment on above: Performed By: #### 2 [id number] ####[facility] [id number] [place] [address] HOSPITALIZED FOR CONDITION OF INTEREST:FIND:PT: NO Normal [facility] Comment on above: Performed By: #### 2 [id number] ####[facility] [id number] [place] [address] STATUS:FIND:PT: NO Normal [facility] Comment on above: Performed By: #### 2 [id number] ####[id number] [place] [address] RESIDES IN A CONGREGATE CARE SETTING:FIND:PT: NO Normal [facility] Comment on above: Performed By: #### 2 [id number] ####[facility] [id number] [place] [address] Consent for Treatmenton 04-26 Consent for Treatment [id number] CD:127 [facility] Insurance Correspondenceon 0 04-26-2022 Insurance Correspondence [id number]#1.00C D:127 [facility] Progress Note-Physicianon Progress Note-Physician Basic Informatio n 1. Alcohol withdrawal (F10.239: Alcohol dependence with withdrawal, unspecified) Seen and examined Clinically slightly better Less shaking Ciwa protocol with Vallium Folic acid daily Thiamine daily NS at 100 cc per hour 2. Alcohol abuse (F10.10: Alcohol abuse, uncomplicated) Normal saline at 100 cc/h Thiamine 100 mg daily Folic acid daily Multivitamin daily 3. Dehydration (E86.0: Dehydration) Improving Normal saline at 100 cc/h BMP daily 4. DVT prophylaxis (Z29.9: Encounter for prophylactic measures, unspecified) Lovenox daily Subjective Doing slightly better Still has shaking Review of Systems Constitutional: no fever, no chills, no sweats, no weakness Respiratory: no shortness of breath, no cough, no orthopnea, no wheezing Cardiovascular: no chest pain, mild palpitations, no edema Additional ROS info: Except as noted in the above Review of Systems and in the History of Present Illness all other systems have been reviewed and are negative or noncontributory. Objective Vitals & Measurements T: 37.1 ?C(Oral) TMIN: 36.3 ?C(Oral) TMAX: 37.1 ?C(Oral) HR: 65(Peripheral) RR: 18 BP: 108/65 SpO2: 95% WT: 74 kg Intake & Output This visit (24 hour periods starting at 07:00 EDT) 04/23/22 * 04/22/22 04/21/22 Total Summary Intake mL -- 1,567.54 -- Output mL -- 2 -- Fluid Balance -- 1,565.54 -- Intake (6) Al hydroxide/Mg hydroxide/simethicone mL -- 30 -- Sodium Chloride 0.9% mL -- 1,000 -- Sodium Chloride 0.9% intravenous solution 1,000 mL + multivitamin 10 mL + thiamine 100 mg + folic a mL -- 473.54 -- diazepam mL -- 2 -- magnesium hydroxide mL -- 60 -- ondansetron mL -- 2 -- Total -- 1,567.54 -- Output (1) Urine Voided mL -- 2 -- Total -- 2 -- Counts (1) Stool Count -- 1 -- * This column has not completed the indicated time period. Physical Exam General: alert, no acute distress Skin: warm, dry Head: no trauma, normocephalic Neck: Trachea midline, no adenopathy, no tenderness Eye: normal conjunctiva, sclera clear ENMT: TM's clear, oral mucosa moist, no pharyngeal erythema or exudate Cardiovascular: regular rate and rhythm, normal peripheral perfusion Respiratory: Lungs CTA, respirations non labored Chest wall: no deformity. Gastrointestinal: soft, non distended, no tenderness, no guarding. Back: No tenderness, Normal ROM, Normal alignment. Extremities: no deformity, no trauma Neurological: oriented x 4, LOC appropriate for age, CN II-XII intact, motor strength equal & normal bilaterally, sensation equal & normal bilaterally, speech normal Psychiatric: cooperative, affect appropriate for age, normal judgement, normal psychiatric thoughts. Lab Results WBC: 7.8 E9/L (04/22/22 13:20:00) RBC: 5.3 E12/L (04/22/22 13:20:00) HGB: 16.8 gm/dL (04/22/22 13:20:00) Hct: 48.3 % (04/22/22 13:20:00) MCV: 91.3 fL (04/22/22 13:20:00) MCH: 31.9 pg (04/22/22 13:20:00) MCHC: 34.9 gm/dL (04/22/22 13:20:00) RDW: 15.5 % High (04/22/22 13:20:00) Platelet: 304 E9/L (04/22/22 13:20:00) MPV: 6.5 fL (04/22/22 13:20:00) Neutro Auto: 81.2 % High (04/22/22 13:20:00) Lymph Auto: 13 % Low (04/22/22 13:20:00) [place] Auto: 5.5 % (04/22/22 13:20:00) Eos Auto: 0 % (04/22/22 13:20:00) Basophil Auto: 0.3 % (04/22/22 13:20:00) Neutro Absolute: 6.3 E9/L (04/22/22 13:20:00) Lymph Absolute: 1 E9/L (04/22/22 13:20:00) [place] Absolute: 0.4 E9/L (04/22/22 13:20:00) Eos Absolute: 0 E9/L (04/22/22 13:20:00) Basophil Absolute: 0 E9/L (04/22/22 13:20:00) Glucose Lvl: 93 mg/dL (04/23/22 05:50:00) BUN: 18 mg/dL (04/23/22 05:50:00) Creatinine: 0.8 mg/dL (04/23/22 05:50:00) eGFR: >60 (04/23/22 05:50:00) eGFR AA: >60 (04/23/22 05:50:00) BUN/Creat Ratio: 22 High (04/23/22 05:50:00) Sodium Lvl: 134 mmol/L Low (04/23/22 05:50:00) Potassium Lvl: 3.7 mmol/L (04/23/22 05:50:00) Chloride: 102 mmol/L (04/23/22 05:50:00) CO2: 25 mmol/L (04/23/22 05:50:00) AGAP: 11 mEq/L (04/23/22 05:50:00) Calcium Lvl: 8.4 mg/dL Low (04/23/22 05:50:00) Alk Phos: 148 Int._Unit/L High (04/22/22 13:20:00) ALT: 20 Int._Unit/L (04/22/22 13:20:00) AST: 23 Int._Unit/L (04/22/22 13:20:00) Total Protein: 7.7 gm/dL (04/22/22 13:20:00) Albumin Lvl: 4.2 gm/dL (04/22/22 13:20:00) Globulin: 3.5 gm/dL (04/22/22 13:20:00) A/G Ratio: 1.2 (04/22/22 13:20:00) Bili Total: 1.3 mg/dL High (04/22/22 13:20:00) Bili Direct: 0.2 mg/dL (04/22/22 13:20:00) Bili Indirect: 1.1 mg/dL High (04/22/22 13:20:00) Lipase Lvl: 61 unit/L High (04/22/22 13:20:00) Magnesium: 1.8 mg/dL (04/23/22 05:50:00) U Amph Scr: Negative (04/22/22 15:10:00) U Sheri Scr: Negative (04/22/22 15:10:00) U Benzodia Scr: Positive Abnormal (04/22/22 15:10:00) U Cannab Scr: Negative (04/22/22 15:10:00) U Cocaine Scr: Negative (04/22/22 15:10:00) U Opiate Scr: NEG1 (04/22/22 15:10:00) U PCP Scr: Negative (04/22/22 15:10:0 (more content not included)... Normal [facility] Comment on above: Result Comment: Elec tronically Signed By: JAIMEE PALACIOS, Alaa\.br\Date and Time Signed: 04/25/22 08:59 EDT Coding Summary.on 04-24-2022 Coding Summary. [id number] Gh0 bWw+PGhlYWQ+TL1FGOFqI77 psOTamG1DA4aWGP2BBDOFYL EMZT7QXJ2lxKA3VBalO5Apg iAv BemacQKqZS82PHq2BAO8fPi dJVpnpZ0fhBXvL4k4YzHdIE 97wG46DHatVAOeFfO9JkSxb jsgbWFy E0giZxVeeKInNiy+PHRhYmx lIHdpZHRoPScxMDAlJyBzdH orOB7rDw3kZQZoYNMssJnss HNlOiBj e8nnTMTrINskRC4naZdrL4X obKK6VXKxz6k1Kp53vUV+PH YhNCS4tQkaAEzvx588WgYid 5ssGRP1 zJFsKLepNPP0X34hc2Y0OAH hCHJzENW2lBQ1bV1cqGckkf gzB1XwfAGpBcV4NYS3rFKnx E8zjSrh wicpqM8cQvm+Y53VQH6MZZR GTO2WHwh0I3XvZogauZD+PC 53HAHlOY67gTXmwYOcr2lyg Ba7MfUj DMAxAMS0qLdhCZpix0YiLIJ aW86vtBHsq4C6IAZwhKviuO KfMsQugCV5gP6rAAgnimwio 2hvdzsn Ivcdq5ewst65qK73O63xKKm jEDWdEPV3HROtGOPabIugez 4vcW3oVm3+BClsj9fng6vju Ts2ShBv QOKuxjGlyMqgWYK6t6TaHn3 4D4GzlQbka5WoNsz9kq25nD Ygm9V5cIW9WXbpHEAydX3yH WxlZnQ6 ZGPdElSvqL66tWXcTVduXo9 jpZxjbJajSG8vAINoqmreRG UvjK9kOZRqrSPrbImdTK4oH TBpbjtm r074KlQjMBS0EMVayJCbY6D iwY3jYlLqLGTcGJOlM8EttM BqYEnfC619QLyjIeQ8JKErl aUsO7Du UURxxEznDlV8i1T3Nd4Vl7I qgqtyOVA3ITyuNUH4DeI5Wl SrClV3B8WmTfp8RLWlwBhaY J0fJ5Ff EIHbtdqeriwccBM8FPXaITP ucI79sATcJAekSn9wq4Z5l7 53YJUoSEQulO63Jn1pyOaqO TBwdCBU jX1zxersr5dtjhlzXeGcGTA zJOa9IFy5AWWapXstMdRcFP I6JtZ8AHS1kEXhlN8lwQlom habhQ2l Oyc+M62oqB9zXSC1OGC1ewm kNHAjrrZjNB61VG49S1VkAy wvdGFibGU+PGRpdiBzdHlsZ U1lGlXa t6aih4XlQEicH8JkERBwEIi bJts8HFXzUZW3fFT3aP9zEH XeMFotf9P9qQF0Y1YjleEva w7vq1an DPUcIEtzD96eaJZiq2B8JQE jjVE1SCOriWmaRfOjwO71Fh c+GRRiqHamd2NjOissh9toq 4ffsOt4 KkFoXNYrmyJepWnqMSG4j9B xSq96I17aPOrhWBJbRZNeLL XvMFHwpGndrp0veD4zXk7+P GNvbCB3 zHW7sU8rHCCzNnN1CVriZ79 3HlMjgFSiGiyen2wgc1xloQ e3KdHeCZLnbuZibCenNRM5l 8MvFv85 O56cUSvgZQJsKCJpCOTjINF mvEvomu6qcL2vQq0+PC9jb2 ximu70fF23kYA+ZIEiIRQ1b WxlPSdw NKXwqV0mUOsvWpB8FYNpAtM utW57vBHyLLbnFg3vcDgrfK eaNP5tYJEtnnsmd701WxEta 2xkIDEw wNHmFBkjFLF6N22uz6X0FUR dOVHzAAK4hHY9aI6bgLmwlt ogbGVmdDsgdmVydGljYWwtY AymG480 IHRvcDsnPlBhdGllbnQgTmF tADx0C3PqTap3XMFjqRyvNV 6xdZDpYCblNr6ypQwccHrpD Q4rSDBo wlsrs921NlIbb7pcZYMkoSY fDBqzXGE5I63bn0G7MKQrQR UfNNP6kRE4lF9bmCscsrggp GVmdDsg tvXdkQfdRAvlUMtzP551FJZ beZbhAqVrccSsWFRmcSU1YU 99UG17lGHuj3I1mZN7H1CnC GRpbmct gwbkaOZ5ULDcTTHrrX34Yo0 vyVyuSu6mLFXmBGD8LQYsyQ VbK5VprE4dImSgZDUqSLNiK 3RleHQt MUtxJ857RWghLjT3RDBstpK rR8BsYMEapIalUmA0f1D1Bw 2WW8A5ZT94SB53wOAhi4N1e MN9K9Dp WUEnrgovpgzssJB7DXViWLF kkX20Zn5rhQlaAh7yXPNeNP Y0QVRvoHGjE2QdaX9nFlKoF DAwMDAw A1HadOQgXBptB077GGdnHkB 8ALNuafFfA6RdBVAtfJstTi J6h5X2Gn0ITYk4SI23AG97f YYdf5Z9 xTS5S4TaRQEgvaikyyumeOV 1CPRsVGQsyK20Mx2erJssEw 2rHHLvXOM0LSUajRDjZ7Gsx Y8mSlTh IEGqTMJaY7CptZImCRgmH91 8BRjzXwH2NHAvkqYfH5OaCR GcjMecNmO7r7X7Xn6QWSEiQ F07TMK2 lCB1OW89CJ41P0JlWzzkrQQ ibGU+PHRhYmxlIHdpZHRoPS dzVGItQkFcuXglST0tXd0yV GVyLWNv cCzvpUGrVgUpl8liNCCyCEj jAP7muAeeP5GnfLX5PJAig8 t0Aj54W00jC4VprKE+PGNvb YR2mLS0 dG4gThIwVlM2DPrcP155UjG fdDGyEjlck6drv4exiRe4Lq W1NYMairIkoLdcHBD3k6AzB m89Y66a IHdpZHRoPSIxNSUiIHZhbGl jvu8bgL2cTv1+NHLwbYB6bN F1xJ0xYsOuDuP1KMstV903B nRvcCIv Foxto8kjf5sifKj0DpUrFRX remXfaCfxHTC7c7NkHt61H5 ClbCcfx9RtUwf7md75cIVxb 5T4cEC8 Q5CsFXKrcgjtzIDamZkgQX0 cHQQxpngkAHNmuE1ePJFkC6 c1IoOuTlF9VFjyZ2XhqrF1F DEwcHQg LKdfULK1B54hi6F3FRWjNYY kIGI8eDO9dA9qxRhnsygkgO VmdDsgdmVydGljYWwtYWxpZ 246IHRv kFlkOLHqrW1pMQFmtGTroRy vCG4tWIYgruatEhJSWQCDSs ztS4nMEWLAKPKBERP9J2HrF wr6XSPk hLbdAL1vfAHeGAwxHy4kvQh agYjlBC9uUDZtsorqRNXobO 9fDQQtuHYzyRgvZW2bUBTyr htfz812 ShDbWGH7DQAobDChI2GaaU7 iCdTiEGJgOTDpH3BksXXqPR awL715AQtyIsX5OSNpddInV 2FsLWFs cYfnHvV8z3A6Fs4gOy6yKB9 qGMozTR01PO22eVOco1C8xX T3A6YcVZMwoeahdkgfiFU3Z DAuMDUw jB59lKJcBKovOc5px8L6n17 9JDZaGJNtzS80Gs4zcMnuYR PoiOWKnK9iawhkx6xhjpqfT zAwMDAw AQr0PLi9BMMeaMyaTmKoMTO 5EzM9VHN8hYQtaO5blFshrf liyG8rBtz+PUouGMRlvfF6R 0JdUom9 ZHNgeGcdRL3yfJGnMYgkGe3 jlRlxpRhuFZ5oUKYkoawkAR AnlE4kDSRzoWYsuLdvRA6pK TBpbjtm h863XeDvAHS9ECDahDXpL0L zeK4vRuScFQBdGFQhO5AfaH IbYVdtL069PZyuXyS1WJHdi kGdL7Qc QBYubRcpCpA6y7K0Is8AJWc fBH66PN55kFVzm1J4gHM4B4 EuHEFyjezqtzywjCG1KPHaJ DUwaW47 mWCqVWbyBg5zp5C2d342LJX sGTNisN33Bf6moDbdIKTkpD KQxG6ovnqlv9jlqqqzSpUiP DAwMDt0 ATr6URRroJzwTxYbEMU6ZwR 3DQR3tOTubH0cwIiugnykcL 9wOyc+NW1wKMXdQM78RZ18V Z10G9Tb PjwvdGFibGU+PHRhYmxlIHd pZHRoPScxMDAlJyBzdHlsZT 1jHm9hOLXrDQWhtCsbcSQlP zTgp8jo ZWWkQBnuPE5ecBdeT5HqnHG 1BEVnl0t3Km41Q78hB7FhiZ A+SUFwuDK4vBN9aF9eEqOgU mT8XCmr X503ZxUigJGlKqtpc9oav5p vuSa4TaQtDFGaetNhxBvzHO T1g0ShVw74K66uYEezRXZkP SIyMCUi NFRnsKblwk1evQ2rLk1+PGN alVK2hYJ2gE4zYoQvHkL4LN mqE000EaEvwKSoDjahJ89qW 3JvdXA+ EAImDqj5WROiaZnkHZ4tfBF fJOolBw7rBNG7UsExFjDzRP ldC4CpDQEqnurxbchsnOT2Q DAuMDUw lT82Jo5jxPsmXi2uLZZxSKZ 9PCUnjQOkJ4EvcC2qUwOrAA CmPCZtI9IheYHhYVvvK813X GxlZnQ7 EJVcyjNjM0FpADUclNxdWdJ 5p8J6Fe7WoUoqvUXbKH9tFa ZiAGi2G4ViGnm0EGIlzVraC M2oxRIo WFifBu5amYdjrSbnIV2lWQY zijucv184MqMqa0fgWHXguM JzFBmyFKQ7S92en8S8MOLvU DAwMDA7 sDX3sD1ukBpsmuctrGApnQm hfoNtcTztXWciTGalX530DH NnnCyhVyDIPxc5D4CpIix3G CBzdHls XA7lrNSmTIduWz5qgAaejHv uQF0xYPKygqasj370NcHkj8 neDHSeoULxDXflPIX9Z49gx 7R3UCAx MPKfDRX4rOB7qO1izQerjlh gbGVmdDsgdmVydGljYWwtYW pnJ070MFQaiUvwTu5PGsx3A 1NhYol6 BDMiqOptJH2naROhBBgbWp0 dcYulrDtfHP2dVWOyloygk6 34WtEfk8jrXIYzrOFrSJjcP FJ8I67y t7F3DBKhJGZvKVN7dAX0lG3 hbGlnbjogbGVmdDsgdmVydG ciZRrmOAstT255WEStvLhuP lBheWVy OjwvdGQ+JA53ei61I9UvGya nZtk2YPWsXEF3cMN6pH9fIJ PhUIpms7H6nLF8X3OvafDoi c8ys5cg YXBz (more content not included)... Normal [facility] Discharge Instructionson Discharge Instructions [id number] CD:127 Normal [facility] General Message Officeon General Message Office --- --- --- --- - -- --- --- --- --- From: Bonnie, DirectInbox To: FRANTZ ALEXANDER Sent: 04/24/22 02:30:24 AM EDT Subject: Discharge Summary Ready to View A summary regarding your recent visit is available in the Documents section of your health record. Normal [facility] BMPon 04-23-2022 Anion gap [Moles/Vol] 11 mmol/L Normal 6-16 [facility] Comment on above: Performed By: #### 2 [id number], [id number] ####[facility] [address] [place] [address] Calcium [Mass/Vol] 8.4 mg/dL Low 8.9-11.1 [facility] Comment on above: Performed By: #### 2 [id number], [id number] ####[facility] [address] [place] [address] Chloride [Moles/Vol] 102 mmol/L Normal 101-111 [facility] Comment on above: Performed By: #### 2 [id number], [id number] ####[facility] [address] [place] [address] CO2 [Moles/Vol] 25 mmol/L Normal 21-31 [facility] Comment on above: Performed By: #### 2 [id number], [id number] ####[facility] [address] [place] [address] Creatinine [Mass/Vol] 0.8 mg/dL Normal 0.5-1.3 [facility] Comment on above: Performed By: #### 2 [id number], [id number] ####[facility] [address] [place] [address] Glucose [Mass/Vol] 93 mg/dL Normal 55-199 [facility] Comment on above: Result Comment: If t his glucose result represents a fasting glucose, interpretation should refer to the following reference range: 55-99 mg/dL Performed By: #### 2 [id number], [id number] ####[facility] [address] [facility] [place] [address] Potassium [Moles/Vol] 3.7 mmol/L Normal 3.5-5.3 [facility] Comment on above: Performed By: #### 2 [id number], [id number] ####[facility] [address] [place] [address] Sodium [Moles/Vol] 134 mmol/L Low 135-145 [facility] Comment on above: Performed By: #### 2 [id number], [id number], [id number] ####[facility] [address] [place] [address] Urea nitrogen [Mass/Vol] 18 mg/dL Normal 5-21 [facility] Comment on above: Performed By: #### 2 [id number], [id number] ####[facility] [address] [place] [address] Urea nitrogen/Creatinine [Mass ratio] 22 No Units High 10-20 [facility] Comment on above: Performed By: #### 2 [id number], [id number] ####[facility] [address] [place] [address] CHEMISTRYOrdered By: SYSTEM SYSTEM on 04-23-2022 Anion gap [Moles/Vol] 11 mmol/L Normal 6 - 16 mEq/L [facility] Calcium [Mass/Vol] 8.4 mg/dL Low 8.9 - 11. 1 mg/dL [facility] Chloride [Moles/Vol] 102 mmol/L Normal 101 - 1 11 mmol/L [facility] CO2 [Moles/Vol] 25 mmol/L Normal 21 - 31 mmol/L [facility] Creatinine [Mass/Vol] 0.8 mg/dL Normal 0.5 - 1.3 mg/dL [facility] GFR/1.73 sq M.predicted among blacks MDRD (S/P/Bld) [Vol rate/Area] mL/min/1.73 m2 Normal >=59mL/min/ 1.73 m2 [facility] Chem S GFR/1.73 sq M.predicted among non-blacks MDRD (S/P/Bld) [Vol rate/Area] mL/min/1.73 m2 Normal >=59mL/min/ 1.73 m2 [facility] Chem S Glucose [Mass/Vol] 93 mg/dL Normal 55 - 199 mg/dL [facility] Magnesium [Mass/Vol] 1.8 mg/dL Normal 1.3 - 2 .4 mg/dL [facility] Potassium [Moles/Vol] 3.7 mmol/L Normal 3.5 - 5.3 mmol/L [facility] Sodium [Moles/Vol] 134 mmol/L Low 135 - 145 mmol/L [facility] Remisol Urea nitrogen [Mass/Vol] 18 mg/dL Normal 5 - 21 mg/dL [facility] Remisol Urea nitrogen/Creatinine [Mass ratio] 22 mg/mg High 10 - 20 [facility] Inpatient Patient Summaryon 04-23-2022 Inpatient Patient Summary FRANTZ ALEXANDER Michelle :1975 Visit Date:04/22/2022 Inpatient Discharge Instructions Your Care Team Admitting Physician - Darren PALACIOS, Juan Reason for Your Visit pt c/o alcohol withdrawl, pt stated he stopped drinking around 2AM. pt stated that he drinks beer only non stop daily for 5-6 days. Your Diagnosis Alcohol withdrawal Alcohol abuse Dehydration DVT prophylaxis Alcohol withdrawal Tests Performed Automated Diff BMP CBC w/ Auto Diff Drug Screen Urine eGFR ETOH Level Hepatic Function Panel Lipase Level Magnesium Level This Is Your Medications List alprazolam amitriptyline (amitriptyline 10 mg Tab) hydrOXYzine hyoscyamine (Levsin) omeprazole rifaximin (rifaximin 550 mg oral tablet) tamsulosin Procedures Performed Colonoscopy, Endoscopy, Incision and drainage of left wrist wound. Discharge Vitals Temperature (Oral) 36.4 ?C Heart Rate (Monitored) 80 Respiratory Rate 10 Blood Pressure 125/83 Height 183 cm Weight 74 kg BMI 22.1 What to do next Instructions From Your Doctor Event Name Event Result Discharge Activity Ambulate as tolerated Discharge Restrictions No restrictions Discharge Diet(s) Regular Pending Diagnostic Test Results None Pharm[facility] Information [facility] [place] [facility] [place] [place] New Follow Up Appointments after Discharge Follow Up with LADY TURNER When: In 0 days Where: [address] [place] [address]- Business (1) Medications What How Much When Why Instructions Next Dose Unchanged alprazolam 1 Milligram By Mouth 3 times a day as needed for as needed for anxiety as needed, as directed Unchanged amitriptyline (amitriptyline 10 mg Tab) 1 Tablets By Mouth Once a day (at bedtime) Irritable bowel syndrome with diarrhea tonight (04/23) Unchanged hydrOXYzine 50 Milligram By Mouth 2 times a day as needed, as directed Unchanged hyoscyamine (Levsin) 0.125 Milligram By Mouth 2 times a day as needed for Pain as needed, as directed Unchanged omeprazole 40 Milligram By Mouth Every day AM, 04/24 Unchanged rifaximin (rifaximin 550 mg oral tablet) 1 Tablets By Mouth 3 times a day Irritable bowel syndrome with diarrhea as needed, as directed Unchanged tamsulosin 0.4 Milligram By Mouth Every day tonight (04/23) Test Results CBC BMP WBC: 7.8 E9/L (04/22/22 13:20:00) Glucose Lvl: 93 mg/dL (04/23/22 05:50:00) RBC: 5.3 E12/L (04/22/22 13:20:00) BUN: 18 mg/dL (04/23/22 05:50:00) HGB: 16.8 gm/dL (04/22/22 13:20:00) Creatinine: 0.8 mg/dL (04/23/22 05:50:00) Hct: 48.3 % (04/22/22 13:20:00) BUN/Creat Ratio: 22 High (04/23/22 05:50:00) MCV: 91.3 fL (04/22/22 13:20:00) Sodium Lvl: 134 mmol/L Low (04/23/22 05:50:00) MCH: 31.9 pg (04/22/22 13:20:00) Potassium Lvl: 3.7 mmol/L (04/23/22 05:50:00) MCHC: 34.9 gm/dL (04/22/22 13:20:00) Chloride: 102 mmol/L (04/23/22 05:50:00) RDW: 15.5 % High (04/22/22 13:20:00) CO2: 25 mmol/L (04/23/22 05:50:00) Platelet: 304 E9/L (04/22/22 13:20:00) AGAP: 11 mEq/L (04/23/22 05:50:00) MPV: 6.5 fL (04/22/22 13:20:00) Calcium Lvl: 8.4 mg/dL Low (04/23/22 05:50:00) Allergies No Known Allergies Problems Ongoing - Any problem that you are currently receiving treatment for. Cervical disc herniation Cervical radiculitis Laceration Historical - Any problem that you are no longer receiving treatment for. Acute pancreatitis Alcohol use Anxiety Cervical pain (neck) Depression H/O: suicide attempt Education Materials Alcohol Use Disorder Alcohol use disorder is when your drinking disrupts your daily life. When you have this condition, you drink too much alcohol and you cannot control your drinking. Alcohol use disorder can cause serious problems with your physical health. It can affect your brain, heart, liver, pancreas, immune system, stomach, and intestines. Alcohol use disorder can increase your risk for certain cancers and cause problems with your mental health, such as depression, anxiety, psychosis, delirium, and dementia. People with this disorder risk hurting themselves and others. What are the causes? This condition is caused by drinking too much alcohol over time. It is not caused by drinking too much alcohol only one or two times. Some people with this condition drink alcohol to cope with or escape from negative life events. Others drink to relieve pain or symptoms of mental illness. What increases the risk? You are more likely to develop this condition if: ? You have a family history of alcohol use disorder. ? Your culture encourages drinking to the point of intoxication, or makes alcohol easy to get. ? You had a mood or conduct disorder in childhood. ? You have been a victim of abuse. ? You are an adolescent and: ? You have poor grades or difficulties in school. ? Your caregivers do not talk to you about saying no to alcohol, o (more content not included)... Normal [facility] Interdisciplinary Note - Jose e Manageron 04-23-2022 Interdisciplinary Note - Surface Mount Technology Operator CRM to room to discuss DC planning. Patient is awake, alert and oriented. Patient is able to participate in DC planning. Patient PCP verified, home DME discussed and insurance reviewed. Patient is from home with his fiancee. Patient had a relapse in drinking and is in with alcohol withdrawal. Patient was trying to manage at home with prescribed meds but he was unable to due to vomiting. Patient has a job interview today that he would like to attend. Patient is positive about his recovery. He stated that he was afraid to call his Physician Dr. Christopher to tell them of his drinking. CRM encouraged patient to reach out to Dr. Christopher. Patient plans to contact her and inform her and as well as start therapy back up . Patient has resources to assist him, he denied need for more. Patient is with noted tremors. Patient was rounded on by Dr. Bernabe. Patient will DC home later today. CRM following Normal [facility] Comment on above: Result Comment: Elec jayally Signed By: Rosalina Hudson\.aniya\Date and Time Signed: 04/23/22 08:48 EDT Interdisciplinary Note - Soc julio Workeron 04-23-2022 Interdisciplinary Note - Cloth Dyeing Range Tender This SW met with patient this morning to discuss his alcoholism and resources for overcoming this addiction. Per patient, he has tried before to stop drinking but has relapsed. He states he was sober for 23 days before relapsing this time. His goal is to stop drinking as he reports that this relapse, although it was not the worst one quantity marcano, was the worst physically for him. He reports that he knows he needs structure in his life and that this helps him. He explained that he has lost quite a few jobs due to the alcohol. He is starting a new job today and does not want to mess it up. He sees Dr. Christopher through [facility]. He plans to talk to her about the relapse and is willing to go to therapy if she thinks it is needed again. Patient has completed therapy there in the past but informed SW that he had been doing so well it was not needed any longer. Patient is very motivated for change at this time. SW provided him with an extensive list of resources including [employer], Counseling Agencies, Inpatient Detox Centers, Inpatient Treatment Centers, and long-term treatment options. He voiced interest in contacting [facility] and was appreciative of all the information. Discussion was had regarding stressors/environmental issues that cause him to relapse. He states that primarily when he has too much time on his hands is when he finds himself drinking. SW talked to him about trying to identify hobbies of interest, either new or old, that could keep him busy when he finds himself having that extra time. 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 SW encouraged him to reach out to this SW should further questions or needs arise after his discharge. SW will remain available. Normal [facility] Magnesiumon 04-23-2022 Magnesium [Mass/Vol] 1.8 mg/dL Normal 1.3-2.4 [facility] Comment on above: Performed By: #### 2 [id number], [id number], [id number] ####[facility] [address] [place] [address] eGFRon 04-23-2022 GFR/1.73 sq M.predicted among blacks MDRD (S/P/Bld) [Vol rate/Area] mL/min/{1.73_m2} Normal >=59 [facility] Comment on above: Order Comment: Order added by Discern Expert. Result Comment: eGFR is race adjusted. AA=. Performed By: #### 2 [id number], [id number], [id number] ####[address] [place] [address] GFR/1.73 sq M.predicted among non-blacks MDRD (S/P/Bld) [Vol rate/Area] mL/min/{1.73_m2} Normal >=59 [facility] Comment on above: Order Comment: Order added by Discern Expert. Result Comment: Disassembler antonio kidney disease could be indicated at eGFR's of less than 60 mL/min/1.73m2. Kidney failure is indicated at less than 15 mL/min/1.73m2. Performed By: #### 2 [id number], [id number], [id number] ####[address] [place] [address] Auto Diffon 04-22-2022 Basophils/100 WBC (Bld) 0.3 % Normal 0.0-2.0 [facility] Comment on above: Order Comment: Order Added by Franki Expert. Performed By: #### 2 [id number], [id number], [id number], [id number], [id number], [id number] ####[address] [place] [address] Basophils/Leukocytes Auto (Bld) [Pure # fraction] 0.0 E9/L Normal 0.0-0.2 [facility] Comment on above: Order Comment: Order Added by Discern Expert. Performed By: #### 2 [id number], [id number], [id number], [id number], [id number], [id number] ####[address] [place] [address] Eosinophils/100 WBC (Bld) 0.0 % Normal 0.0-8.0 [facility] Comment on above: Order Comment: Order Added by Discern Expert. Performed By: #### 2 032419, 4047987, 4537870, [id number], [id number], [id number] ####[address] [place] [address] Eosinophils/Leukocytes Auto (Bld) [Pure # fraction] 0.0 E9/L Normal 0.0-0.5 [facility] Comment on above: Order Comment: Order Added by Franki Expert. Performed By: #### 2 [id number], 1414315, 3832243, 6697533, 4329584, [id number] ####[facility] [address] [place] [address] Lymphocytes/100 WBC (Bld) 13.0 % Low 14.0-50.0 [facility] Comment on above: Order Comment: Order Added by Discern Expert. Performed By: #### 2 [id number], 4732198, 3812989, 0982054, 5806456, [id number] ####[facility] [address] [place] [address] Lymphocytes/Leukocytes Auto (Bld) [Pure # fraction] 1.0 E9/L Normal 1.0-4.0 [facility] Comment on above: Order Comment: Order Added by Franki Expert. Performed By: #### 2 103514, [id number], 4092190, 6475441, 8389298, [id number] ####[address] [place] [address] Monocytes/100 WBC (Bld) 5.5 % Normal 4.0-14.0 [facility] Comment on above: Order Comment: Order Added by Franki Expert. Performed By: #### 2 526279, 9067597, 6687907, 3053283, [id number], [id number] ####[address] [place] [address] Monocytes/Leukocytes Auto (Bld) [Pure # fraction] 0.4 E9/L Normal 0.2-1.0 [facility] Comment on above: Order Comment: Order Added by Franki Expert. Performed By: #### 2 335453, 3003658, 9117984, 5190054, 4334602, [id number] ####[facility] [address] [place] [address] Neutrophils/100 WBC (Bld) 81.2 % High 36.0-75.0 [facility] Comment on above: Order Comment: Order Added by Franki Expert. Performed By: #### 2 245332, 3380896, 2502677, 1916462, 7043456, [id number] ####[facility] [address] [place] [address] Neutrophils/Leukocytes Auto (Bld) [Pure # fraction] 6.3 E9/L Normal 2.0-7.5 [facility] Comment on above: Order Comment: Order Added by Discern Expert. Performed By: #### 2 404110, 3308396, 3385760, 0501653, 1053211, [id number] ####[facility] [address] [place] [address] BMPon 04-22-2022 Creatinine [Mass/Vol] 1.0 mg/dL Normal 0.5-1.3 [facility] Comment on above: Performed By: #### 2 555340, 2016717, 8563247, 4051647, 0287132, 11620856 ####[facility] [address] [place] [address] Urea nitrogen [Mass/Vol] 20 mg/dL Normal 5-21 [facility] Comment on above: Performed By: #### 2 249337, 2051826, 0413640, 9856790, 3636590, 83876738 ####[facility] [address] [place] [address] Urea nitrogen/Creatinine [Mass ratio] 20 No Units Normal 10-20 [facility] Comment on above: Performed By: #### 2 774002, 9120534, 0692944, 9412042, 1990430, 71658686 ####[facility] [address] [place] [address] Anion gap [Moles/Vol] 17 mmol/L High 6-16 [facility] Comment on above: Performed By: #### 2 709534, 5879021, 6569288, 5150778, 2322784, 03525349 ####[facility] [address] [place] [address] Calcium [Mass/Vol] 8.5 mg/dL Low 8.9-11.1 [facility] Comment on above: Performed By: #### 2 651920, 9291659, 7134450, 3501045, 2181932, 16987668 ####[facility] [address] [place] [address] Chloride [Moles/Vol] 99 mmol/L Low 101-111 [facility] Comment on above: Performed By: #### 2 049482, 9983979, 0043712, 9517444, 5562659, 87541417 ####[facility] [address] [place] [address] CO2 [Moles/Vol] 24 mmol/L Normal 21-31 [facility] Comment on above: Performed By: #### 2 957427, 2620168, 9427461, 9343296, 8752278, 75013887 ####[facility] [address] [place] [address] Glucose [Mass/Vol] 118 mg/dL Normal 55-199 [facility] Comment on above: Result Comment: If t his glucose result represents a fasting glucose, interpretation should refer to the following reference range: 55-99 mg/dL Performed By: #### 2 510538, 7980690, 3527131, 9513132, 1277680, 35361038 ####[facility] [address] [place] [address] Potassium [Moles/Vol] 3.8 mmol/L Normal 3.5-5.3 [facility] Comment on above: Performed By: #### 2 370364, 5112180, 7315342, 2876828, 7854870, 07393546 ####[facility] [address] [place] [address] Sodium [Moles/Vol] 136 mmol/L Normal 135-145 [facility] Comment on above: Performed By: #### 2 148832, 6787776, 1315304, 8880796, 7347463, 62786480 ####[facility] [address] [place] [address] CBC w/ Auto Diffon 2 Erythrocyte distribution width (RBC) [Ratio] 15.5 % High 10.9-14.2 [facility] Comment on above: Performed By: #### 2 955879, 5612150, 2137059, 8457607, 3922332, 58933538 ####[facility] [address] [place] [address] Hematocrit (Bld) [Volume fraction] 48.3 % Normal 37.7-49.0 [facility] Comment on above: Performed By: #### 2 316519, 7103042, 2949313, 6087788, 7882911, 62454376 ####[address] [address] Hemoglobin (Bld) [Mass/Vol] 16.8 g/dL Normal 13.5-17.5 [facility] Comment on above: Performed By: #### 2 990811, 8512513, 9770410, 5078866, 7413747, 73308267 ####[address] [address] MCH (RBC) [Entitic mass] 31.9 pg Normal 27.0-34.0 [facility] Comment on above: Performed By: #### 2 513628, 5786659, 6755305, 7884285, 4252978, 36218707 ####[address] [address] MCHC (RBC) [Mass/Vol] 34.9 g/dL Normal 31.4-36.0 [facility] Comment on above: Performed By: #### 2 585885, 2321617, 7981419, 8850006, 2432735, 64552688 ####[address] [address] MCV (RBC) [Entitic vol] 91.3 fL Normal 80.0-100.0 [facility] Comment on above: Performed By: #### 2 601146, 1029424, 1997902, 4093968, 1703902, 74481398 ####[facility] [address] [place] [address] Platelet mean volume (Bld) [Entitic vol] 6.5 fL Normal 6.4-10.8 [facility] Comment on above: Performed By: #### 2 800891, 7514128, 6182412, 2984520, 6437586, 19661182 ####[address] [address] Platelets (Bld) [#/Vol] 304.0 E9/L Normal 150.0-500.0 [facility] Comment on above: Performed By: #### 2 379682, 6909261, 7989236, 3245696, 5602885, 04808344 ####[address] [address] RBC (Bld) [#/Vol] 5.3 E12/L Normal 4.3-5.9 [facility] Comment on above: Performed By: #### 2 741535, 4349573, 8610887, 4108680, 0200978, 90741570 ####[address] [address] WBC corrected for nucl RBC Auto (Bld) [#/Vol] 7.8 E9/L Normal 4.0-11.0 [facility] Comment on above: Performed By: #### 2 509197, 4809686, 6813391, 3625753, 4214834, 64268263 ####[address] [address] CHEMISTRYOrdered By: SYSTEM SYSTEM on 04-22-2022 Amphetamines Screen method >1000 ng/mL Ql (U) Negative (04/22/22 3:10 PM) Normal Negative [facility] Barbiturates Screen Ql (U) Negative (04/22/22 3:10 PM) Normal Negative [facility] Benzodiazepines Ql (U) Positive 1 *ABN* (04/22/22 3:10 PM) Invalid Interpretation Code Negative [facility] Comment on above: Result Comment: Unco nfirmed by alternate method\Results verified by repeat analysis\No confirmation requested by Physican\Critical Result UD_BENZ:POS Called to SONIA TAYLOR AT ER by YUNG CALVILLO And Read Back For Confirmation at: 04/22/2022 16:01:25 Cocaine Ql (U) Negative (04/22/22 3:10 PM) Normal Negative [facility] Opiates Screen Ql (U) Negative (04/22/22 3:10 PM) Normal Negative [facility] Phencyclidine Screen method >25 ng/mL Ql (U) Negative (04/22/22 3:10 PM) Normal Negative [facility] Tetrahydrocannabinol Screen method >50 ng/mL Ql (U) Negative (04/22/22 3:10 PM) Normal Negative [facility] Albumin [Mass/Vol] 4.2 g/dL Normal 3.3 - 5.0 gm/dL [facility] Albumin/Globulin [Mass ratio] 1.2 {ratio} Normal 1.1 - 2.2 [facility] ALP [Catalytic activity/Vol] 148 [iU]/d High 21 - 98 Int._Unit/L [facility] ALT No additional P-5'-P [Catalytic activity/Vol] 20 [iU]/d Normal 6 - 46 Int._Unit/L [facility] Anion gap [Moles/Vol] 17 mmol/L High 6 - 16 mEq/L [facility] AST [Catalytic activity/Vol] 23 [iU]/d Normal 5 - 43 Int._Unit/L [facility] Bilirubin [Mass/Vol] 1.3 mg/dL High 0.0 - 1 .1 mg/dL [facility] Bilirubin.direct [Mass/Vol] 0.2 mg/dL Normal 0.1 - 0.4 mg/dL [facility] Bilirubin.indirect [Mass or moles/Vol] 1.1 mg/dL High 0.1 - 0.9 mg/dL [facility] Calcium [Mass/Vol] 8.5 mg/dL Low 8.9 - 11. 1 mg/dL [facility] Chloride [Moles/Vol] 99 mmol/L Low 101 - 1 11 mmol/L [facility] CO2 [Moles/Vol] 24 mmol/L Normal 21 - 31 mmol/L [facility] Creatinine [Mass/Vol] 1.0 mg/dL Normal 0.5 - 1.3 mg/dL [facility] Ethanol [Mass/Vol] 121 mg/dL Invalid Interpretation Code <=7mg/dL [facility] Comment on above: Result Comment: Vickie ical Result S_ETOH:121.0 Called to PABLO TURNER AT ER by HARPAL MONTILLA And Read Back For Confirmation at: 04/22/2022 13:53:32 GFR/1.73 sq M.predicted among blacks MDRD (S/P/Bld) [Vol rate/Area] mL/min/1.73 m2 Normal >=59mL/min/ 1.73 m2 [facility] S GFR/1.73 sq M.predicted among non-blacks MDRD (S/P/Bld) [Vol rate/Area] mL/min/1.73 m2 Normal >=59mL/min/ 1.73 m2 [facility] Chem S Globulin (S) [Mass/Vol] 3.5 g/dL Normal 1.4 - 4.0 gm/dL [facility] Glucose [Mass/Vol] 118 mg/dL Normal 55 - 199 mg/dL [facility] Lipase [Catalytic activity/Vol] 61 U/L High 13 - 58 unit/L [facility] Potassium [Moles/Vol] 3.8 mmol/L Normal 3.5 - 5.3 mmol/L [facility] Protein [Mass/Vol] 7.7 g/dL Normal 6.0 - 7.8 gm/dL [facility] Sodium [Moles/Vol] 136 mmol/L Normal 135 - 145 mmol/L [facility] Urea nitrogen [Mass/Vol] 20 mg/dL Normal 5 - 21 mg/dL [facility] Urea nitrogen/Creatinine [Mass ratio] 20 mg/mg Normal 10 - 20 [facility] Consent for Treatmenton 03-28 Consent for Treatment [id number] D:127 Normal [facility] ED Clinical Summaryon 2021 ED Clinical Summary (Inserted Image. Elba ble to display) [place] [id number] ED Clinical Summary Person Information Name: FRANTZ ALEXANDER [place] Age: 47 Years : 1975 Sex: Male Language: Martiniquais PCP: LADY TURNER CNP Marital Status: Single Visit Id: Visit Reason: Alcohol withdrawal; ALCHOL WITHDRAW Speciality: Acuity: 2 Enc Type: Emergency Med Service: Emergency Arrival: 04/22/2022 12:42:20 Discharge: LOS: 000 06:26 Checkin: 04/22/2022 12:42:20 Checkout: 04/22/2022 19:08:29 Dispo Type: Admit to ICCU EVENTS: Event Name Event Status Request Date/Time Start Date/Time Complete Date/Time Arrive Complete 04/22/2022 12:42:20 04/22/2022 12:42:20 04/22/2022 12:42:20 Document Home Meds Request 04/22/2022 12:42:20 Triage Complete 04/22/2022 12:42:20 04/22/2022 12:52:18 04/22/2022 12:52:18 Bed Assign Complete 04/22/2022 12:52:39 04/22/2022 12:52:39 04/22/2022 12:52:39 Dr Exam Complete 04/22/2022 12:52:39 04/22/2022 12:57:23 04/22/2022 12:57:23 RN Exam Complete 04/22/2022 12:52:39 04/22/2022 12:57:24 04/22/2022 12:57:24 Registration Complete 04/22/2022 12:57:23 04/22/2022 15:57:19 04/22/2022 15:57:19 EKG Complete 04/22/2022 13:12:59 04/22/2022 13:25:20 Meds Admin Complete 04/22/2022 13:12:59 04/22/2022 13:58:08 Pending Labs Complete 04/22/2022 13:12:59 04/22/2022 16:01:30 Lab Complete 04/22/2022 13:12:59 04/22/2022 16:01:30 Urine Collect Complete 04/22/2022 13:12:59 04/22/2022 16:01:30 Patient Care Request 04/22/2022 13:12:59 RT Request 04/22/2022 13:12:59 Pending Labs Complete 04/22/2022 13:26:18 04/22/2022 13:26:18 04/22/2022 13:52:47 Lab Complete 04/22/2022 13:26:18 04/22/2022 13:26:18 04/22/2022 13:52:47 Pending Labs Complete 04/22/2022 13:32:38 04/22/2022 13:32:38 04/22/2022 13:32:38 Pending Labs Complete 04/22/2022 13:39:37 04/22/2022 13:39:37 04/22/2022 13:39:44 Lab Complete 04/22/2022 13:39:37 04/22/2022 13:39:37 04/22/2022 13:39:44 Consult Request 04/22/2022 15:41:02 Hospitalist Consult Request 04/22/2022 15:41:02 Meds Admin Complete 04/22/2022 15:43:12 04/22/2022 16:07:43 Reg Complete Request 04/22/2022 15:57:19 Patient Care Request 04/22/2022 16:11:08 Meds Admin Request 04/22/2022 16:11:08 Bed Request Request 04/22/2022 16:11:08 Reg Bed Request Request 04/22/2022 16:11:08 Admit Request 04/22/2022 16:11:08 Meds Admin Request 04/22/2022 16:17:02 Pending Labs Request 04/22/2022 16:17:02 Lab Request 04/22/2022 16:17:02 Patient Care Request 04/22/2022 16:17:02 Consult Request 04/22/2022 16:17:30 Meds Admin Request 04/22/2022 16:18:40 Meds Admin Request 04/22/2022 16:38:23 Inpatient Bed Ready Complete 04/22/2022 19:08:29 04/22/2022 19:08:29 04/22/2022 19:08:29 ADDRESS: [address] [place] [phone] [facility] DOC NOTES: MEDICAL INFORMATION: Prescriptions Given: Medications to Continue with No Changes Other Medications alprazolam 1 Milligram By Mouth 3 times a day as needed as needed for anxiety. amitriptyline (amitriptyline 10 mg Tab) 1 Tablets By Mouth once a day (at bedtime). Refills: 3. hydrOXYzine 50 Milligram By Mouth 2 times a day. hyoscyamine (Levsin) 0.125 Milligram By Mouth 2 times a day as needed Pain. omeprazole 40 Milligram By Mouth every day. rifaximin (rifaximin 550 mg oral tablet) 1 Tablets By Mouth 3 times a day. Refills: 1. tamsulosin 0.4 Milligram By Mouth every day. PATIENT EDUCATION INFORMATION: Instructions: Follow up: DIAGNOSIS: 1:Alcohol withdrawal; 2:Alcohol abuse; 3:Dehydration; 4:DVT prophylaxis Normal [facility] ED Note-Physicianon 04-22-20 ED Note-Physician Basic Information Time Seen: Erickson Benitez DO 04/22/2022 12:57 Chief Complaint pt c/o alcohol withdrawl, pt stated he stopped drinking around 2AM. pt stated that he drinks beer only non stop daily for 5-6 days. History of Present Illness 47 male presents emergency department with alcohol withdrawal. Patient states last drink was around 0 300 this morning. Present here today with feeling of anxiousness and shakiness with associated nausea and alcohol withdrawal. He has gone through alcohol withdrawal in the past but never had any associated seizures. He is otherwise previously healthy denies any other significant past medical history. He denies any pain anywhere has had nausea but no vomiting no diarrhea no dysuria or other associated symptoms or complaints. No other prior treatments at home. Patient is not suicidal or homicidal. No other aggravating or relieving factors no other associated symptoms no other prior treatments or complaints. Family: Reviewed and noncontributory Social: lives at home patient is a daily drinker denies any drug use Review of systems negative unless otherwise specified in the HPI. Physical Exam Vitals & Measurements T: 36.3 ?C(Oral) HR: 81(Peripheral) RR: 18 BP: 128/88 SpO2: 96% HT: 183 cm HT: 183.0 cm WT: 74 kg WT: 74.0 kg BMI: 22.1 General: The patient appears to be in alcohol withdrawal consistent with stated history and is anxious Skin: Warm, dry, no pallor noted. Head: Normocephalic, atraumatic Neck: No JVD Eye: PERRLA, EOMI ENT: Moist mucus membranes Cardiovascular: Regular rate normal peripheral perfusion Respiratory: No respiratory distress no accessory muscle use no obvious audible wheezing Chest Wall: no deformity Musculoskeletal: normal ROM, no deformity, no swelling GI: Soft no obvious distention. No rebound or rigidity. No guarding. No tenderness. Neurological: A&O moves all extremities equal strength and symmetry and generally shaking and tremoring Psychiatric: Cooperative and appropriate but anxious Medical Decision Making Work-up in the ER has been reviewed and noted. Patient is treated here with IV fluid bolus also given Valium given the nationwide Ativan shortage. CIWA score is 15 therefore case discussed with the hospitalist and patient will be admitted to the ICU for additional evaluation and treatment. Critical care time 30 minutes exclusive from separate billable procedures Assessment/Plan Alcohol abuse with withdrawal (F10.139: Alcohol abuse with withdrawal, unspecified) Nausea (R11.0: Nausea) Orders: diazepam, 5 mg = 1 mL, Injection, IV Push, Once, Stop date 04/22/22 13:12:00 EDT, STAT, Start date 04/22/22 13:12:00 EDT, 04/22/22 13:12:00 EDT Sodium Chloride 0.9% intravenous solution, 1,000 mL, Soln-IV, IV, Once, Stop date 04/22/22 13:12:00 EDT, STAT, Start date 04/22/22 13:12:00 EDT, mL/hr, Infuse over 61, minute(s) Automated Diff Basic Metabolic Panel CBC w/ Auto Diff Communication Order Physician to Nursing Continuous Pulse Oximetry Drug Screen Urine ECG 12 Lead Adult ED Cardiac Monitoring ED Physician consult Hospitalist for continued care eGFR Ethanol Level Extra Blue Tube Extra SST Tube Hepatic Function Panel Lipase Level Medications Administered Given diazepam 5 mg/mL Inj, 5 mg, IV Push [id number] [F], 1000 mL, IV Disposition Plan Discharge Prescription List Prescriptions No active prescription medications Follow-up No qualifying data available Problem List/Past Medical History Ongoing Cervical disc herniation Cervical radiculitis Laceration Historical Acute pancreatitis Alcohol use Anxiety Cervical pain (neck) Depression H/O: suicide attempt Procedure/Surgical History Colonoscopy, Endoscopy, Incision and drainage of left wrist wound. Medications Inpatient diazepam 5 mg/mL Inj, 5 mg= 1 mL, IV Push, Once NS 1000 ml Bolus, 1000 mL, IV, Once Home alprazolam, 1 mg, Oral, TID, PRN amitriptyline 10 mg Tab, 10 mg= 1 tab(s), Oral, Once a day (at bedtime), 3 refills hydrOXYzine, 50 mg, Oral, BID Levsin, 0.125 mg, Oral, BID, PRN, Not taking omeprazole, 40 mg, Oral, Daily rifaximin 550 mg oral tablet, 550 mg= 1 tab(s), Oral, TID, 1 refills tamsulosin, 0.4 mg, Oral, Daily Allergies No Known Allergies Social History Alcohol Current, Beer, Daily, Previous treatment: psychiatrist. Alcohol use interferes with work or home: Yes. Drinks more than intended: Yes., 04/22/2022 Current, Beer, Daily, 03/12/2012 Employment/School - Not employed or in school, 08/25/2013 Exercise - Does not exercise, 08/25/2013 Home/Environment - Low Risk, 08/25/2013 Nutrition/Health - Medium Risk, 08/25/2013 Substance Abuse - Denies Substance Abuse, 03/12/2012 Past, Cocaine, Several times per day, Previous treatment: None. Started age 38 Years. Stopped age 38 Years. IV drug use: No. Drug use interferes with work/home: Yes. Ready to change: Yes. Household substance abuse concerns: Yes., 08/25/2013 Toba (more content not included)... Normal [facility] Comment on above: Result Comment: Elec tronically Signed By: Erickson Benitez DO\.aniya\Date and Time Signed: 04/22/22 15:41 EDT ED Patient Education Noteon 04-22-2022 ED Patient Education Note Normal [facility] ED Patient Summaryon 022 ED Patient Summary (Inserted Image. Elba ble to display) [place] [id number] Patient Discharge Instructions Person Information Name: FRANTZ ALEXANDER Age: 47 Years Arrival Date: 04/22/2022 12:42:20 Discharge Diagnosis: 1:Alcohol withdrawal; 2:Alcohol abuse; 3:Dehydration; 4:DVT prophylaxis Primary Care Physician: LADY TURNER CNP Provider Information Primary Provider: Erickson Benitez DO Advanced Rodbuster:None The exam and treatment you received in the Emergency Department were for an urgent problem and are not intended as complete care. It is important that you follow up with a doctor, nurse practitioner, or physician?s respiratory assistant for ongoing care. If your symptoms become worse or you do not improve as expected and you are unable to reach your usual health care provider, you should return to the Emergency Department. We are available 24 hours a day. FRANTZ ALEXANDER has been given the following list of patient education materials, prescriptions and follow-up instructions: Follow-up Instructions: In the event that this physician does not participate in your insurance network, please consult with your insurance company to find a nearby participating provider. Patient Education Materials: A MESSAGE TO ALL PATIENTS REGARDING OPIOIDS PRESCRIPTION OPIOIDS: WHAT YOU NEED TO KNOW Prescription opioids can be used to help relieve jpkgelhe-ls-eefoew pain and are often prescribed following a surgery or injury, or for certain health conditions. These medications can be an important part of the treatment but also come with serious risks. It is important to work with your healthcare provider to make sure you are getting the safest, most effective care. WHAT ARE THE RISKS AND SIDE EFFECTS OF OPIOID USE? Prescription opioids carry serious risks of addiction and overdose, especially with prolonged use. An opioid overdose, often marked by slowed breathing, can cause sudden . The use of prescription opioids can have a number of side effects as well, even when taken as directed: ? Tolerance?meaning you might need to take more of the medication for the same pain relief ? Physical dependence?meaning you have symptoms of withdrawal when a medication is stopped ? Increased sensitivity to pain ? Constipation ? Nausea, vomiting, and dry mouth ? Sleepiness and dizziness ? Confusion ? Depression ? Low levels of testosterone that can result in lower sex drive, energy, and strength ? Itching and sweating RISKS ARE GREATER WITH: ? History of drug misuse, substance use disorder, or overdose ? Mental health conditions (such as depression or anxiety) ? Sleep apnea ? Older age (65 years and older) ? Avoid alcohol while taking prescription opioids. Also, unless specifically advised by your health care provider, medications to avoid include: ? Benzodiazepines (such as Xanax or Valium) ? Muscle relaxants (such as Soma or Flexeril) ? Hypnotics (such as Ambien or Lunesta) ? Other prescription opioids KNOW YOUR OPTIONS Talk to your health care provider about ways to manage your pain that don?t involve prescription opioids. Some of these options may actually work better and have fewer risks and side effects. Options may include: ? Pain relievers such as acetaminophen, ibuprofen, and naproxen ? Some medication that are also used for depression or seizures ? Physical therapy and exercise ? Cognitive behavioral therapy, a psychological, goal-directed approach, in which patients learn how to modify physical, behavioral, and emotional triggers of pain and stress. IF YOU ARE PRESCRIBED OPIOIDS FOR PAIN: ? Never take opioids in greater amounts or more often than prescribed. ? Follow up with your primary health care provider. o Work together to create a plan on how to manage your pain. o Talk about ways to help manage your pain that don?t involve prescription opioids. o Talk about any and all concerns and side effects. ? Help prevent misuse and abuse o Never sell or share prescription opioids. o Never use another person?s prescription opioids. ? Store prescription opioids in a secure place and out of reach of others (this may include visitors, children, friends, and family). ? Safely dispose of unused prescription opioids: Find your community drug take-back program or your pharmacy mail-back program, or flush them down the toilet, following guidance from the Food and Drug Administration (www.fda.gov/Drugs/Reso urcesForYou). ? Visit www.cdc.gov/drugoverdos e to learn about the risks of opioids abuse and overdose. ? If you believe you may be struggling with addiction, tell your health medicare specialist and ask for guidance or call SAMHSA?S National Helpline at 6-276-152-STSP. v Source: [place] Department of Health and Human Services/Center for Disease Control & Prevention [facility] (more content not included)... Normal [facility] Ethanolon 04-22-2022 Ethanol [Mass/Vol] 121 mg/dL Abnormal <=7 [facility] Comment on above: Result Comment: Crit ical Result S_ETOH:121.0 Called to PABLO TURNER AT by HARPAL MONTILLA And Read Back For Confirmation at: 04/22/2022 13:53:32 Performed By: #### 2 [id number] ####[facility] [address] [place] [address] HEMATOLOGYOrdered By: SYSTEM SYSTEM on 04-22-2022 Basophils/100 WBC (Bld) 0.3 % Normal 0.0 - 2.0 % [facility] Basophils/Leukocytes Auto (Bld) [Pure # fraction] 0.0 E9/L Normal 0.0 - 0.2 E9/L [facility] Eosinophils/100 WBC (Bld) 0.0 % Normal 0.0 - 8.0 % [facility] Eosinophils/Leukocytes Auto (Bld) [Pure # fraction] 0.0 E9/L Normal 0.0 - 0.5 E9/L [facility] Lymphocytes/100 WBC (Bld) 13.0 % Low 14.0 - 50.0 % [facility] Lymphocytes/Leukocytes Auto (Bld) [Pure # fraction] 1.0 E9/L Normal 1.0 - 4.0 E9/L [facility] Monocytes/100 WBC (Bld) 5.5 % Normal 4.0 - 14.0 % [facility] Monocytes/Leukocytes Auto (Bld) [Pure # fraction] 0.4 E9/L Normal 0.2 - 1.0 E9/L [facility] Neutrophils/100 WBC (Bld) 81.2 % High 36.0 - 75.0 % [facility] Neutrophils/Leukocytes Auto (Bld) [Pure # fraction] 6.3 E9/L Normal 2.0 - 7.5 E9/L [facility] HEMATOLOGYOrdered By: Delonte Phoenix on 04-22-2022 Erythrocyte distribution width (RBC) [Ratio] 15.5 % High 10.9 - 14.2 % [facility] Hematocrit (Bld) [Volume fraction] 48.3 % Normal 37.7 - 49.0 % [facility] Hemoglobin (Bld) [Mass/Vol] 16.8 g/dL Normal 13.5 - 17.5 gm/dL [facility] MCH (RBC) [Entitic mass] 31.9 pg Normal 27.0 - 34.0 pg [facility] MCHC (RBC) [Mass/Vol] 34.9 g/dL Normal 31.4 - 36.0 gm/dL [facility] MCV (RBC) [Entitic vol] 91.3 fL Normal 80.0 - 100.0 fL [facility] Platelet mean volume (Bld) [Entitic vol] 6.5 fL Normal 6.4 - 10.8 fL [facility] Platelets (Bld) [#/Vol] 304.0 E9/L Normal 150. 0 - 500.0 E9/L [facility] RBC (Bld) [#/Vol] 5.3 E12/L Normal 4.3 - 5.9 E12/L [facility] WBC corrected for nucl RBC Auto (Bld) [#/Vol] 7.8 E9/L Normal 4.0 - 11.0 E9/L [facility] HemeAutoSS Hep Func Panelon 04-22-2022 Albumin [Mass/Vol] 4.2 g/dL Normal 3.3-5.0 [facility] Comment on above: Performed By: #### 2 [id number], 4420407, 1159059, 5573580, 1761816, [id number] ####[facility] [address] [place] [address] Albumin/Globulin (S) [Mass conc ratio] 1.2 Normal 1.1-2.2 [facility] Comment on above: Performed By: #### 2 394195, 8296462, 0026947, 1238597, 7863341, 31273278 ####[facility] [address] [place] [address] ALP [Catalytic activity/Vol] 148 Int._Unit/L High 21-98 [facility] Comment on above: Performed By: #### 2 453594, 4301548, 4968915, 7624584, 2038995, [id number] ####[facility] [address] [place] [address] ALT No additional P-5'-P [Catalytic activity/Vol] 20 Int._Unit/L Normal 6-46 [facility] Comment on above: Performed By: #### 2 962092, 0085016, 3833924, 2047615, 1346888, 04467615 ####[facility] [address] [place] [address] AST [Catalytic activity/Vol] 23 Int._Unit/L Normal 5-43 [facility] Comment on above: Performed By: #### 2 726852, 8890049, 2282046, 5468560, 4543561, 10779313 ####[facility] [address] [place] [address] Bilirubin [Mass/Vol] 1.3 mg/dL High 0.0-1.1 [facility] Comment on above: Performed By: #### 2 555968, 9460720, 6595591, 5881564, 4820201, 19657842 ####[address] [address] Bilirubin.direct [Mass/Vol] 0.2 mg/dL Normal 0.1-0.4 [facility] Comment on above: Performed By: #### 2 366191, 2721038, 2002791, 6402470, 4687365, 46073793 ####[facility] [address] [place] [address] Bilirubin.indirect [Mass or moles/Vol] 1.1 mg/dL High 0.1-0.9 [facility] Comment on above: Performed By: #### 2 282410, 6268078, 4292548, 0033021, 1715368, 09172351 ####[facility] [address] [place] [address] Globulin (S) [Mass/Vol] 3.5 g/dL Normal 1.4-4.0 [facility] Comment on above: Performed By: #### 2 169504, 5905961, 3026014, 7916401, 5595196, 21276255 ####[facility] [address] [place] [address] Protein [Mass/Vol] 7.7 g/dL Normal 6.0-7.8 [facility] Comment on above: Performed By: #### 2 112793, 6352623, 9592778, 0111300, 3097858, 15669334 ####[facility] [address] [place] [address] Lipase Levelon 04-22-2022 Lipase [Catalytic activity/Vol] 61 U/L High 13-58 [facility] Comment on above: Performed By: #### 2 025472, 1619147, 0005301, 8464528, 4571501, 22786849 ####[facility] [address] [place] [address] Monitor Recordon 04-22-2022 Monitor Record [id number] D:127 Normal [facility] U Drug Screenon 04-22-2022 Benzodiazepines Ql (U) Positive Abnormal Negative [facility] Comment on above: Result Comment: Unco nfirmed by alternate method\Results verified by repeat analysis\No confirmation requested by Physican\Critical Result UD_BENZ:POS Called to SONIA TAYLOR AT ER by YUNG CALVILLO And Read Back For Confirmation at: 04/22/2022 16:01:25 Negative Cutoff: <200 ng/mL Performed By: #### 2 [id number] ####[facility] [address] [place] [address] Amphetamines Screen method >1000 ng/mL Ql (U) Negative Normal Negative [facility] Comment on above: Result Comment: Nega tive Cutoff: <1000 ng/mL Performed By: #### 2 658583 ####[facility] [address] [place] [address] Barbiturates Screen Ql (U) Negative Normal Negative [facility] Comment on above: Result Comment: Nega tive Cutoff: <200 ng/mL Performed By: #### 2 414032 ####[facility] [address] [place] [address] Cocaine Ql (U) Negative Normal Negative [facility] Comment on above: Result Comment: Nega tive Cutoff: <300 ng/mL Performed By: #### 2 153780 ####[facility] [address] [place] [address] Opiates Screen Ql (U) Negative Normal Negative [facility] Comment on above: Result Comment: Nega tive Cutoff: <300 ng/mL Performed By: #### 2 904586 ####[facility] [address] [place] [address] Phencyclidine Screen method >25 ng/mL Ql (U) Negative Normal Negative [facility] Comment on above: Result Comment: Nega tive Cutoff: <25 ng/mL These drug screen results are to be used for medical (i.e., treatment) purposes only. Unconfirmed drug screening results must not be used for non-medical purposes (e.g., employment testing, legal testing). Performed By: #### 2 377026 ####[address] [address] Tetrahydrocannabinol Screen method >50 ng/mL Ql (U) Negative Normal Negative [facility] Comment on above: Result Comment: Nega tive Cutoff: <50 ng/mL Performed By: #### 2 557215 ####[facility] [address] [place] [address] eGFRon 04-22-2022 GFR/1.73 sq M.predicted among blacks MDRD (S/P/Bld) [Vol rate/Area] mL/min/{1.73_m2} Normal >=59 [facility] Comment on above: Order Comment: Order added by Discern Expert. Result Comment: eGFR is race adjusted. AA=. Performed By: #### 2 657259, 5342855, 0443386, 0919984, 3759417, 46750357 ####[facility] [address] [place] [address] GFR/1.73 sq M.predicted among non-blacks MDRD (S/P/Bld) [Vol rate/Area] mL/min/{1.73_m2} Normal >=59 [facility] Comment on above: Order Comment: Order added by Discern Expert. Result Comment: Disassembler antonio kidney disease could be indicated at eGFR's of less than 60 mL/min/1.73m2. Kidney failure is indicated at less than 15 mL/min/1.73m2. Performed By: #### 2 360998, 9706813, 2061306, 9592751, 2929246, 42046311 ####[facility] [address] [place] [address] CBC AUTO DIFFon 12-03-2021 BASO # 0.0 103/ul Normal 0.0-0.1 [facility] Comment on above: Performed By: #### C BC #### [facility] [address] [place] [address] Dr. Angel Coker Basophils/100 WBC (Bld) 0.3 % Normal 0.2-2.0 [facility] Comment on above: Performed By: #### C BC #### [facility] [address] [place] [address] Dr. Angel Coker EO # 0.0 103/ul Normal 0.0-0.7 [facility] Comment on above: Performed By: #### C BC #### [facility] [address] [place] [address] Dr. Angel Coker Eosinophils/100 WBC (Bld) 0.4 % Critically low 0.9-7.0 [facility] Comment on above: Performed By: #### C BC #### [facility] [address] [place] [address] Dr. Angel Coker Erythrocyte distribution width (RBC) [Ratio] 14.0 % Normal 11.0-15.0 [facility] Comment on above: Performed By: #### C BC #### [facility] [address] [place] [address] Dr. Angel Coker Hematocrit (Bld) [Volume fraction] 40.9 % Critically low 42.0-54.0 [facility] Comment on above: Performed By: #### C BC #### [facility] [address] [place] [address] Dr. Angel Coker Hemoglobin (Bld) [Mass/Vol] 14.3 g/dL Normal 14.0-18.0 [facility] Comment on above: Performed By: #### C BC #### [facility] [address] [place] [address] Dr. Angel Coker IG # 0.03 10e3/ul Normal 0.00-0.03 [facility] Comment on above: Performed By: #### C BC #### [facility] [address] [place] [address] Dr. Angel Coker IG % 0.3 % Normal 0.0-0.5 [facility] Comment on above: Performed By: #### C BC #### [facility] [address] [place] [address] Dr. Angel Coker LYMPH # 1.6 103/ul Normal 1.2-3.8 [facility] Comment on above: Performed By: #### C BC #### [facility] [address] [place] [address] Dr. Angel Coker Lymphocytes/100 WBC (Bld) 16.3 % Critically low 20.5-60.0 [facility] Comment on above: Performed By: #### C BC #### [facility] [address] [place] [address] Dr. Angel Coker MANUAL DIFF REQ NO Normal [facility] Comment on above: Performed By: #### C BC #### [facility] [address] [place] [address] Dr. Angel Coker MCH (RBC) [Entitic mass] 33.6 pg Normal 25.9-34.0 [facility] Comment on above: Performed By: #### C BC #### [facility] [address] [place] [address] Dr. Angel Coker MCHC (RBC) [Mass/Vol] 35.0 g/dL Normal 29.9-35.2 [facility] Comment on above: Performed By: #### C BC #### [facility] [address] [place] [address] Dr. Angel Coker MCV (RBC) [Entitic vol] 96.0 fL Critically high 80.0-94 .0 [facility] Comment on above: Performed By: #### C BC #### [facility] [address] [place] [address] Dr. Angel Coker MONO # 0.8 103/ul Normal 0.3-0.8 [facility] Comment on above: Performed By: #### C BC #### [facility] [address] [place] [address] Dr. Angel Coker Monocytes/100 WBC (Bld) 8.5 % Normal 1.7-12.0 [facility] Comment on above: Performed By: #### C BC #### [facility] [address] [place] [address] Dr. Angel Coker NEUT # 7.2 103/ul Critically high 1.4-6.5 [facility] Comment on above: Performed By: #### C BC #### [facility] [address] [place] [address] Dr. Angel Coker Neutrophils/100 WBC (Bld) 74.2 % Normal 43.0-75.0 [facility] Comment on above: Performed By: #### C BC #### [facility] [address] [place] [address] Dr. Angel Coker Platelet mean volume (Bld) [Entitic vol] 9.3 fL Critically low 9.5-13.5 [facility] Comment on above: Performed By: #### C BC #### [facility] [address] [place] [address] Dr. Angel Coker PLT 260 103/ul Normal 150-450 [facility] Comment on above: Performed By: #### C BC #### [facility] [address] [place] [address] Dr. Angel Coker RBC 4.26 106/ul Critically low 4.70-6.10 [facility] Comment on above: Performed By: #### C BC #### [facility] [address] [place] [address] Dr. Angel Coker WBC 9.6 103/ul Normal 4.0-11.0 [facility] Comment on above: Performed By: #### C BC #### [facility] [address] [address] [address] Angel Coker PROF 14(COMP METB)on 022 Albumin [Mass/Vol] 3.6 g/dL Normal 3.5-5.0 [facility] Comment on above: Performed By: #### C MP #### [facility] [address] [address] [address] Angel Coker Albumin/Globulin [Mass ratio] 0.9 {ratio} Normal [facility] Comment on above: Performed By: #### C MP #### [facility] [address] [address] [address] Angel Coker ALP [Catalytic activity/Vol] 244 U/L Critically high 38-126 [facility] Comment on above: Performed By: #### C MP #### [facility] [address] [address] [address] Angel Coker ALT [Catalytic activity/Vol] 249 U/L Critically high 21-72 [facility] Comment on above: Performed By: #### C MP #### [facility] [address] [address] [address] Angel Coker Anion gap [Moles/Vol] 12.0 mmol/L Normal [facility] Comment on above: Performed By: #### C MP #### [facility] [address] [address] [address] Angel Coker AST [Catalytic activity/Vol] 178 U/L Critically high 17-59 [facility] Comment on above: Performed By: #### C MP #### [facility] [address] [address] [address] Angel Coker Bilirubin [Mass/Vol] 1.2 mg/dL Normal 0.2-1.3 [facility] Comment on above: Performed By: #### C MP #### [facility] [address] [place] [address] Dr. Angel Coker Calcium [Mass/Vol] 8.9 mg/dL Normal 8.4-10.2 [facility] Comment on above: Performed By: #### C MP #### [facility] [address] [address] [address] Angel Coker Chloride [Moles/Vol] 98 mmol/L Normal 98-107 [facility] Comment on above: Performed By: #### C MP #### [facility] [address] [address] [address] Angel Coker CO2 [Moles/Vol] 27.3 mmol/L Normal 22.0-30.0 [facility] Comment on above: Performed By: #### C MP #### [facility] [address] [address] [address] Angel Coker Creatinine [Mass/Vol] 0.90 mg/dL Normal 0.66-1.25 [facility] Comment on above: Performed By: #### C MP #### [facility] [address] [address] [address] Angel Coker EGFR-AF [place]ER >60 Normal >=60 [facility] Comment on above: Performed By: #### C MP #### [facility] [address] [address] [address] Angel Coker EGFR-NON AF [place] >60 Normal >=60 [facility] Comment on above: Performed By: #### C MP #### [facility] [address] [address] [address] Angel Coker Globulin (S) [Mass/Vol] 3.9 g/dL Normal [facility] Comment on above: Performed By: #### C MP #### [facility] [address] [address] [address] Angel Coker Glucose [Mass/Vol] 111 mg/dL Critically high 74-106 [facility] Comment on above: Performed By: #### C MP #### [facility] [address] [address] [address] Angel Coker Potassium [Moles/Vol] 3.3 mmol/L Critically low 3.4-5.0 [facility] Comment on above: Performed By: #### C MP #### [facility] [address] [address] [address] Angel Coker Protein [Mass/Vol] 7.5 g/dL Normal 6.1-8.2 [facility] Comment on above: Performed By: #### C MP #### [facility] [address] [address] [address] Angel Coker Sodium [Moles/Vol] 134 mmol/L Critically low 137-145 [facility] Comment on above: Performed By: #### C MP #### [facility] [address] [address] [address] Angel Coker Urea nitrogen [Mass/Vol] 13.0 mg/dL Normal 9.0-20.0 [facility] Comment on above: Performed By: #### C MP #### [facility] [address] [place] [address] Dr. Angel Coker Urea nitrogen/Creatinine [Mass ratio] 14.4 mg/mg Normal [facility] Comment on above: Performed By: #### C MP #### [facility] [address] [address] [address] Angel Coker XR ABD FLAT UP_PA Funmilayo 12-03 XR ABD FLAT UP_PA CH EXAM: XR ABD FLAT U P_PA CH HISTORY: CHEST PAIN, UNSPECIFIED COMPARISON: Chest radiographs dated 12/18/2016. TECHNIQUE: One view of the chest and 2 views of the abdomen were obtained. FINDINGS: The cardiac silhouette is normal in size. The lungs are clear. There is no significant pneumothorax or pleural effusion. No acute osseous abnormality is seen. There is a nonspecific bowel gas pattern without evidence of bowel obstruction. No intraperitoneal free air is seen. IMPRESSION: 1. No acute cardiopulmonary abnormality. 2. Nonspecific bowel gas pattern without evidence of bowel obstruction. Electronically authenticated by: Clement GIPSON Date: 2021-12-03 02:18 Normal [facility] CBC AUTO DIFFon 06-14-2021 BASO # 0.0 103/ul Normal 0.0-0.1 [facility] Comment on above: Performed By: #### C BC #### [facility] [address] [address] Mine Nena Basophils/100 WBC (Bld) 0.4 % Normal 0.2-2.0 [facility] Comment on above: Performed By: #### C BC #### [facility] [address] [place] [address] Mine Nena EO # 0.1 103/ul Normal 0.0-0.7 [facility] Comment on above: Performed By: #### C BC #### [facility] [address] [place] [address] Mine Nena Eosinophils/100 WBC (Bld) 1.1 % Normal 0.9-7.0 [facility] Comment on above: Performed By: #### C BC #### [facility] [address] [place] [address] Mine Nena Erythrocyte distribution width (RBC) [Ratio] 13.3 % Normal 11.0-15.0 [facility] Comment on above: Performed By: #### C BC #### [facility] [address] [place] [address] Mine Nena Hematocrit (Bld) [Volume fraction] 42.2 % Normal 42.0-54.0 [facility] Comment on above: Performed By: #### C BC #### [facility] [address] [place] [address] Mine Nena Hemoglobin (Bld) [Mass/Vol] 14.3 g/dL Normal 14.0-18.0 [facility] Comment on above: Performed By: #### C BC #### [facility] [address] [place] [address] Mine Nena IG # 0.04 10e3/ul Critically high 0.00-0.03 [facility] Comment on above: Performed By: #### C BC #### [facility] [address] [place] [address] Mine Nena IG % 0.5 % Normal 0.0-0.5 [facility] Comment on above: Performed By: #### C BC #### [facility] [address] [place] [address] Mine Nena LYMPH # 1.1 103/ul Critically low 1.2-3.8 [facility] Comment on above: Performed By: #### C BC #### [facility] [address] [place], [place] [id number] Mine Nena Lymphocytes/100 WBC (Bld) 12.3 % Critically low 20.5-60.0 [facility] Comment on above: Performed By: #### C BC #### [facility] [address] [place], [place] [id number] Mine Nena MANUAL DIFF REQ NO Normal [facility] Comment on above: Performed By: #### C BC #### [facility] [address] [place] [address] Mine Nena MCH (RBC) [Entitic mass] 33.3 pg Normal 25.9-34.0 [facility] Comment on above: Performed By: #### C BC #### [facility] [address] [place] [address] Minecullen Barrett MCHC (RBC) [Mass/Vol] 33.9 g/dL Normal 29.9-35.2 [facility] Comment on above: Performed By: #### C BC #### [facility] [address] [place], [place] [id number] Mine Nena MCV (RBC) [Entitic vol] 98.1 fL Critically high 80.0-94 .0 [facility] Comment on above: Performed By: #### C BC #### [facility] [address] [place], [place] [id number] Mine Nena MONO # 0.9 103/ul Critically high 0.3-0.8 [facility] Comment on above: Performed By: #### C BC #### [facility] [address] [place] [address] Mine Nena Monocytes/100 WBC (Bld) 10.2 % Normal 1.7-12.0 [facility] Comment on above: Performed By: #### C BC #### [facility] [address] [place] [address] Mine Nena NEUT # 6.4 103/ul Normal 1.4-6.5 [facility] Comment on above: Performed By: #### C BC #### [facility] [address] [place] [address] Mine Barrett Neutrophils/100 WBC (Bld) 75.5 % Critically high 43.0-75.0 [facility] Comment on above: Performed By: #### C BC #### [facility] [address] [place] [address] Mine Barrett Platelet mean volume (Bld) [Entitic vol] 8.9 fL Critically low 9.5-13.5 [facility] Comment on above: Performed By: #### C BC #### [facility] [address] [place], [place] [id number] Minecullen Gleasonen PLT 202 103/ul Normal 150-450 [facility] Comment on above: Performed By: #### C BC #### [facility] [address] [place], [place] [id number] Minecullen Barrett RBC 4.30 106/ul Critically low 4.70-6.10 [facility] Comment on above: Performed By: #### C BC #### [facility] [address] [place], [place] [address] Mine Brarett WBC 8.5 103/ul Normal 4.0-11.0 [facility] Comment on above: Performed By: #### C BC #### [facility] [address] [place], [place] [id number] Mine Barrett CULTURE BLOODon 06-14-2021 Microscopic examination of blood, culture Culture Observations: No growth at 5 days. Normal [facility] Comment on above: Performed By: #### B LDCX2 #### [facility] [address] [place] [address] Mine Barrett Microscopic examination of blood, culture Culture Observations: No growth at 5 days. Normal [facility] Comment on above: Performed By: #### B LDCX1 #### [facility] [address] [place], [place] [id number] Mine Barrett D-DIMERon 06-14-2021 D-DIMER 0.26 mg/L FEU Normal 0.19-0.50 [facility] Comment on above: Performed By: #### D DIM #### [facility] [address] [place], [place] [id number] Mine Nena D-DIMER COMMENTS SEE BELOW Normal [facility] Comment on above: Result Comment: Incr eases in D-Dimer concentration observed with thromboembolic events can be variable due to localization, size, and age of the thrombus. Therefore, a thromboembolic event cannot be diagnosed with certainty on the basis of the reference range. D-Dimers may also be elevated for a variety of disorders including: advanced age, , coronary disease, cancer, liver disease, infection, inflammation, hematoma, DIC, trauma, post-surgery, diabetes, thrombolytic or anticoagulant therapy, stress, and generalized hospitalization. Performed By: #### D DIM #### [facility] [address] [place], [place] [id number] Mine Nena LACTATE/LACTIC ACIDon 2020 Lactate [Moles/Vol] 2.4 mmol/L Critically high 0.7-2.0 [facility] Comment on above: Result Comment: TEST REPEATED CRITICAL VALUE VERIFIED Performed By: #### L ACT #### [facility] [address] [place], [place] [id number] Mine Barrett PROF 14(COMP METB)on 021 Albumin [Mass/Vol] 3.4 g/dL Critically low 3.5-5.0 [facility] Comment on above: Performed By: #### C MP #### [facility] [address] [place], [place] [address] Minecullen Barrett Albumin/Globulin [Mass ratio] 0.9 {ratio} Normal [facility] Comment on above: Performed By: #### C MP #### [facility] [address] [place], [place] [id number] Mine Nena ALP [Catalytic activity/Vol] 181 U/L Critically high 38-126 [facility] Comment on above: Performed By: #### C MP #### [facility] [address] [place], [place] [id number] Mine Nena ALT [Catalytic activity/Vol] 158 U/L Critically high 21-72 [facility] Comment on above: Performed By: #### C MP #### [facility] [address] [id number] Mine Nena Anion gap [Moles/Vol] 11.7 mmol/L Normal [facility] Comment on above: Performed By: #### C MP #### [facility] [address] [id number] Mine Nena AST [Catalytic activity/Vol] 75 U/L Critically high 17-59 [facility] Comment on above: Performed By: #### C MP #### [facility] [address] [address] Mine Nena Bilirubin [Mass/Vol] 1.1 mg/dL Normal 0.2-1.3 [facility] Comment on above: Performed By: #### C MP #### [facility] [address] [address] Mine Nena Calcium [Mass/Vol] 8.3 mg/dL Critically low 8.4-10.2 [facility] Comment on above: Performed By: #### C MP #### [facility] [address] [address] Mine Nena Chloride [Moles/Vol] 104 mmol/L Normal 98-107 [facility] Comment on above: Performed By: #### C MP #### [facility] [address] [id number] Mine Nena CO2 [Moles/Vol] 30.8 mmol/L Critically high 22.0-30.0 [facility] Comment on above: Performed By: #### C MP #### [facility] [address] [address] Mine Nena Creatinine [Mass/Vol] 1.02 mg/dL Normal 0.66-1.25 [facility] Comment on above: Performed By: #### C MP #### [facility] [address] [id number] Mine Nena EGFR-AF [place] >60 Normal >=60 [facility] Comment on above: Performed By: #### C MP #### [facility] [address] [id number] Mine Nena EGFR-NON AF [place] >60 Normal >=60 [facility] Comment on above: Performed By: #### C MP #### [facility] [address] [place], [place] [address] Mine Nena Globulin (S) [Mass/Vol] 3.6 g/dL Normal [facility] Comment on above: Performed By: #### C MP #### [facility] [address] [id number] Mine Nena Glucose [Mass/Vol] 103 mg/dL Normal 74-106 [facility] Comment on above: Performed By: #### C MP #### [facility] [address] [id number] [place] Potassium [Moles/Vol] 3.5 mmol/L Normal 3.4-5.0 [facility] Comment on above: Performed By: #### C MP #### [facility] [address] [address] [place] Protein [Mass/Vol] 7.0 g/dL Normal 6.1-8.2 [facility] Comment on above: Performed By: #### C MP #### [facility] [address] [id number] [place] Sodium [Moles/Vol] 143 mmol/L Normal 137-145 [facility] Comment on above: Performed By: #### C MP #### [facility] [address] [id number] [place] Urea nitrogen [Mass/Vol] 16.0 mg/dL Normal 9.0-20.0 [facility] Comment on above: Performed By: #### C MP #### [facility] [address] [place], [place] [address] [place] Urea nitrogen/Creatinine [Mass ratio] 15.7 mg/mg Normal [facility] Comment on above: Performed By: #### C MP #### [facility] [address] [place], [place] [address] [place] CNOVon 11-11-2019 CNOV Office Visit (PODIAM ) WHIT ALEXANDERBECKY Martinez ([id number]) 1975 M Date Time Provider Department 11/11/19 9:15 AM JANNETTE GRULLON During your visit today, we recorded the following information about you: Jannette Grullon DPM 11/11/2019 10:05 AM Signed Subjective The history is provided by the patient. Patient presents with: Left ankle fracture: follow up / WBC paperwork Patient is 3-1/2 months post fibular fracture left ankle.Patient presents in the office wearing his CAM walker, compression sock, and ankle strapping. Patient denies current pain. Patient denies taking OTC pain medication. Patient relates that he does not wear the cam walker most of the time and is requesting to go back to work. He has been ambulating in his work boots and states he could stand for approximately 6 hours before the swelling and pain starts. 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 Review of Systems Constitutional: Negative for chills and fever. Cardiovascular: Positive for leg swelling. Musculoskeletal: Positive for joint pain. Skin: Negative for itching and rash. Neurological: Negative for tingling and sensory change. Endo/Heme/Allergies: Does not bruise/bleed easily. Objective Physical Exam Constitutional: He is oriented to person, place, and time and well-developed, well-nourished, and in no distress. Cardiovascular: Intact distal pulses. Feet are cool to touch with normal temperature gradient. Capillary fill time is within normal limits. Musculoskeletal: General: Tenderness and edema present. Left ankle: He exhibits swelling. Tenderness. Lateral malleolus tenderness found. Achilles tendon normal. Feet: Comments: Mild tenderness and minimal swelling noted left lateral ankle. Neurological: He is alert and oriented to person, place, and time. He has normal sensation. Skin: Skin is dry. No abrasion, no bruising, no laceration and no rash noted. No cyanosis or erythema. Nails show no clubbing. ASSESSMENT Pain of joint of left ankle and foot Closed fracture of left ankle with routine healing, subsequent encounter (primary encounter diagnosis) Return if symptoms worsen or fail to improve. TREATMENT Etiology of the patient's problems were discussed today. - All questions asked were answered. - Conservative management was discussed . - Discussed supportive shoes and orthotics to help realign the feet to its maximum functional position and minimize abnormal motion of the foot and ankle which help alleviate foot and ankle strain. They will help prevent further suffering and control further progression of the deformity. - Dispensed ankle strapping. - OK to continue tylenol, nonsteroidal anti-inflammatory - Letter for work dispensed to patient to return to work on Friday, Advised patient to have FMLA paperwork faxed to office. Discussed medication dosage, usage, goals of therapy, and side effects. Written instructions (see patient instructions) and verbal health teaching given to patient, patient verbalizes understanding and agrees with treatment plan. The documentation for this note was completed by Yolie Mclain acting as scribe for Jannette Grullon DPM. November 11, 2019 9:47 AM I agree with the Chief Complaint, ROS, and Past Histories independently gathered by the clinical business support administrator and the remaining scribed note accurately describes my personal service to the patient. This document has been created with the use of voice recognition technology. It may contain inaccuracies, misspellings, inaccurate syntax or inappropriate word context that escaped review. Janentte Grullon DPM Referring Provider: JANNETTE GRULLON [[id number]] Allergies As of Date: 11/11/2019 (No Known Allergies) Date Reviewed: 11/11/2019 Reviewed by: Jannette Grullon - Fully Assessed Reason for Visit: Left ankle fracture [Other] Cmt: follow up / WBC paperwork Reason For Visit History Recorded Primary Visit Diagnosis:Closed fracture of left ankle with routine healing, subsequent encounter [S82.163T] Other Visit Diagnosis:Pain of joint of left ankle and foot [M25.572] Order(s):XR ANKLE GENERAL 3V AP/LAT/OBL LT [[id number]] Order #: [id number] FUTURE Prescriptions as of 11/11/2019 Sig: OMEPRAZOLE 40 MG CAPSULE,MEHUL* Take 40 mg by mouth once ruthy* HYDROXYZINE PAMOATE 50 MG CAP* Take 50 mg by mouth daily at * CLONAZEPAM 1 MG TABLET Take 1 mg by mouth three time* HYDROCODONE 5 MG-ACETAMINOPHE* Take 1 tablet by mouth every * ONDANSETRON 4 MG DISINTEGRATI* Take 1 tablet by mouth every * Problem List As Of Date 11/11/2019 Noted Resolved Pain of joint of left ankle and foot [M25.572] 08/05/2019 Swelling [R60.9] 08/05/2019 Closed fracture of left ankle [S82.892A] 08/05/2019 Disposition: Return if symptoms worsen or fail to improve. Follow-up and Disposition History Recorded Letter Text Encounter Status:Closed by JANNETTE GRULLON DPM on 11/11/19 Normal [facility] PROGRESSon 11-11-2019 PROGRESS HNO ID: [id number] Author: Jannette Grullon Service: ? Author Type: Physician Type: Progress Notes Filed: 11/11/2019 10:05 AM Note Text: Subjective The history is provided by the patient. Patient presents with: Left ankle fracture: follow up / WBC paperwork Patient is 3-1/2 months post fibular fracture left ankle.Patient presents in the office wearing his CAM walker, compression sock, and ankle strapping. Patient denies current pain. Patient denies taking OTC pain medication. Patient relates that he does not wear the cam walker most of the time and is requesting to go back to work. He has been ambulating in his work boots and states he could stand for approximately 6 hours before the swelling and pain starts. 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 Review of Systems Constitutional: Negative for chills and fever. Cardiovascular: Positive for leg swelling. Musculoskeletal: Positive for joint pain. Skin: Negative for itching and rash. Neurological: Negative for tingling and sensory change. Endo/Heme/Allergies: Does not bruise/bleed easily. Objective Physical Exam Constitutional: He is oriented to person, place, and time and well-developed, well-nourished, and in no distress. Cardiovascular: Intact distal pulses. Feet are cool to touch with normal temperature gradient. Capillary fill time is within normal limits. Musculoskeletal: General: Tenderness and edema present. Left ankle: He exhibits swelling. Tenderness. Lateral malleolus tenderness found. Achilles tendon normal. Feet: Comments: Mild tenderness and minimal swelling noted left lateral ankle. Neurological: He is alert and oriented to person, place, and time. He has normal sensation. Skin: Skin is dry. No abrasion, no bruising, no laceration and no rash noted. No cyanosis or erythema. Nails show no clubbing. ASSESSMENT Pain of joint of left ankle and foot Closed fracture of left ankle with routine healing, subsequent encounter (primary encounter diagnosis) Return if symptoms worsen or fail to improve. TREATMENT Etiology of the patient's problems were discussed today. - All questions asked were answered. - Conservative management was discussed . - Discussed supportive shoes and orthotics to help realign the feet to its maximum functional position and minimize abnormal motion of the foot and ankle which help alleviate foot and ankle strain. They will help prevent further suffering and control further progression of the deformity. - Dispensed ankle strapping. - OK to continue tylenol, nonsteroidal anti-inflammatory - Letter for work dispensed to patient to return to work on Friday, Advised patient to have FMLA paperwork faxed to office. Discussed medication dosage, usage, goals of therapy, and side effects. Written instructions (see patient instructions) and verbal health teaching given to patient, patient verbalizes understanding and agrees with treatment plan. The documentation for this note was completed by Yolie Mclain acting as scribe for Jannette Grullon DPM. November 11, 2019 9:47 AM I agree with the Chief Complaint, ROS, and Past Histories independently gathered by the clinical business support administrator and the remaining scribed note accurately describes my personal service to the patient. This document has been created with the use of voice recognition technology. It may contain inaccuracies, misspellings, inaccurate syntax or inappropriate word context that escaped review. Jannette Grullon DPM [facility] CNCOon 11-04-2019 CNCO Letter Text [facility] CNPNon 10-12-2019 CNPN Telephone ([facility]) FRANTZ ALEXANDER ([id number]) 1975 M Date Time Provider Department 10/12/19 JANNETTE GRULLON During your visit today, we recorded the following information about you: Chelyambrocio Caos [facility] 10/12/2019 11:50 AM Signed Pt called and stated that he spoke to someone in the office last week regarding an appointment or a return to work letter by November 01. He stated that the gentlemnn he spoke to stated he may be able to be squeezed in this week? I advised pt I would send a message to her staff. Please advise pt at [phone] or mom's number at [phone]. Chely Amisha [facility] Yolie Chemo 10/12/2019 2:32 PM Signed Left VM for mother stating that frantz missed his appointment last week and that Dr. Grullon will be out of the office until 11/01/19. Advised to call to make either a first available appointment with Dr. Grullon or Schedule with another provider. Yolie Nelson [facility] 10/22/2019 1:33 PM Signed Patient called back, relayed message below, patient scheduled with dr grullon, unfortunately first available is 11/11/18 which he did schedule, however, he states he needs his paperwork faxed about his return to work because he lost his 'disability' because he was supposed to return to work by now and he still can not walk for 10 hours a day like they need him to. Patient would like a call back to let him know if dr grullon office still has that paperwork he said the company/paperwork was called [employer] Patient call back number [phone] [facility] Yolie Chemo 10/26/2019 10:41 AM Signed Attempted to call patient, phone call could not be completed as dialed. If patient calls back, advised the following: Dr Grullon is out of the office until 11/01/19 however If he would like paperwork filled out to keep him out of work till his scheduled appointment, he can fax it to [phone] Grullon can fill it out once she is back in the office. Yolie Mclain 10/26/2019 11:05 AM Signed Paperwork received, will place in to do pile on Dr. Petersen desk to be done once she is back in the office. Yolie Watkins [facility] 11/08/2019 3:11 PM Signed Pt needs call back about return to work on Mom's Phone - [phone] - his is turned off right now. He hasn't gotten a check from guardian and needs the paperwork completed and faxed back. Please call mike to advise [phone] Sonam Evans, [facility] 11/08/2019 3:18 PM Signed Received paperwork is in process. Will contact patient once faxed ok. Yolie Mclain 11/09/2019 9:09 AM Signed Faxed ok. VM left on mothers phone. Kerry Becerriluman [facility] 11/11/2019 2:22 PM Signed Patient needs forms for employer stating that he is released to go back to work on Wednesday 11/15. Employer will be sending over FMLA papers as well to be completed. He is also requesting this be sent to [employer] as they have not sent him a check since . Please review and advise. Okay to leave a v/m. Kerry Liu [facility] Yolie Mclain 11/16/2019 10:11 AM Signed Paperwork from [employer] requesting notes from 08/27/19-11/10/2019 received and will be added to the to do pile. Yolie Mukherjee Omar [facility] 11/16/2019 2:38 PM Signed Patient called asking if his work sent his FMLA papers to dr grullon yet, he states the [employer] papers are just his short term disability papers but he is asking about actual FMLA papers, patient would like a call back to let him know if you have them or not. Patient call back number [phone] Yazkristin Nelson [facility] Sonam Evans, [facility] 11/16/2019 3:37 PM Signed Informed patient that his FMLA paperwork from his work has not yet been received. Pt stated that his work is requesting information be faxed to them. His work is stating that they do not fax the physician paperwork to fill out. Informed patient that we can send over a letter to his employer if he could please provide a fax number. Pt to return call with fax. [employer]: Sonam Evans CMA 11/18/2019 10:07 AM Signed FMLA paperwork received via fax. In process. Nevin Mcgraw Rory 11/18/2019 3:13 PM Signed Patient states he needs this form filled out and returned as soon as possible. He also would like to know if the forms from [employer] were received and sent back for his short term disability. Patient can be reached at [phone]. Nevin Cheungmargarita Valadez November 18, 2019 3:12 PM Loreto Watkins Pss 11/19/2019 3:52 PM Signed Pt called again to check on FMLA Paperwork. Please call [facility] - [phone] Yolie Mclain 11/22/2019 11:36 AM Signed FMLA Paperwork completed and faxed ok. Yolie Sr Lucien Valadez 11/22/2019 3:17 PM Signed Patient called back stating, paperwork is missing information. He is requesting a call back as soon as possible to go over what is needed. Nevin Cheungmargarita Valadez November 22, 2019 3:16 PM Yolietuyet Mclain 11/23/2019 8:44 AM Signed Call placed to patient. 1st number had no vm set up, 2nd number was changed or disconnected. If [facility] Calls back advise the following. -FMLA was filled out to the best of our ability and faxed ok yesterday 11/22/19 -guardian paperwork received about 2 weeks ago requesting office notes was faxed ok on 11/16/19 -[employer] paperwork received today again requesting the most recent office visit notes and A new form to be filled out with a return to work date. Dr. Grullon is out of the office till 12/06/19 and will sign that form at that time. Yolie Nelson Pss 11/23/2019 4:28 PM Signed Patient called back, verifies contact phone number is [phone], relayed messaging below, patient acknowledged understanding but is now upset because he has not gotten any disability checks at all and has financial obligations that need addressed, patient states all they need to provide Guardian is a Return To Work Date simply because it was omitted on the first submission and then he can get paid. Patient states waiting for dr grullon to come back on 12/06/2019 and not having an income for that long is excruciating and he absolutely needs this addressed by anyone who can put the date on it and fax it or call guardian and give them the date or something because this is his financial income. Patient would like someone in the office to see what they can do about this Yaz Nelson Marcus Mclain 11/24/2019 4:55 PM Signed Faxed the following letter to [employer] today in addition to the original letter. ? TO WHOM IT MAY CONCERN: ?This is to confirm that Frantz Alexander is a patient of Dr. Jannette Grullon. During his 11/11/2019 office visit he was released to return to work on 11/15/2019. Dr. Grullon is out of the office until 12/06/2019 and will be able to complete the most recent paperwork faxed by [employer] at that time. Thank you in advance for your understanding. Attached I will attach a copy of the original letter. Sincerely yours, Yolie Lemus MA Attempted to call patient back on phone number provided, he did not answer and mail box was not accepting messages. Please advise patient of letter that was sent once he calls back. Yolie Mclain 12/06/2019 1:43 PM Signed Paperwork from [employer] faxed ok Yolie Mclain Allergies As of Date: 10/12/2019 (No Known Allergies) Date Reviewed: 09/16/2019 Reviewed by: Yolie Mclain - Fully Assessed Reason for Visit: Return To Work Letter [[id number]] Prescriptions as of 10/12/2019 Sig: OMEPRAZOLE 40 MG CAPSULE,MEHUL* Take 40 mg by mouth once ruthy* HYDROXYZINE PAMOATE 50 MG CAP* Take 50 mg by mouth daily at * CLONAZEPAM 1 MG TABLET Take 1 mg by mouth three time* HYDROCODONE 5 MG-ACETAMINOPHE* Take 1 tablet by mouth every * ONDANSETRON 4 MG DISINTEGRATI* Take 1 tablet by mouth every * Problem List As Of Date 10/12/2019 Noted Resolved Pain of joint of left ankle and foot [M25.572] 08/05/2019 Swelling [R60.9] 08/05/2019 Closed fracture of left ankle [S82.892A] 08/05/2019 Letter Text Encounter Status:Closed by YOLIE MCLAIN on 10/12/19 Normal [facility] CNOVon 09-16-2019 CNOV Office Visit (PODIAM ) FRANTZ ALEXANDER ([id number]) 1975 M Date Time Provider Department 09/16/19 1:30 PM JANNETTE GRULLON During your visit today, we recorded the following information about you: Jannette Grullon DPM 09/16/2019 4:42 PM Signed Subjective The history is provided by the patient. Patient presents with: left ankle fracture: 6 week follow up. Patient presents in the office wearing his CAM walker, compression sock, and ankle strapping. Patient denies current pain. Patient denies taking OTC pain medication. Patient relates that he has attempted weightbearing outside of his cam walker however he did experience pain on his lateral ankle. Review of Systems Constitutional: Negative for chills and fever. Cardiovascular: Positive for leg swelling. Musculoskeletal: Positive for joint pain. Skin: Negative for itching and rash. Neurological: Negative for tingling and sensory change. Endo/Heme/Allergies: Does not bruise/bleed easily. Objective Physical Exam Constitutional: He is oriented to person, place, and time and well-developed, well-nourished, and in no distress. Cardiovascular: Intact distal pulses. Feet are cool to touch with normal temperature gradient. Capillary fill time is within normal limits. Musculoskeletal: General: Tenderness and edema present. Left ankle: He exhibits swelling. Tenderness. Lateral malleolus tenderness found. Achilles tendon normal. Feet: Comments: Mild tenderness and swelling noted left lateral ankle. Antalgic gait with decreased range of motion. X-ray findings:Healing oblique fracture of the lateral malleolus left ankle Neurological: He is alert and oriented to person, place, and time. He has normal sensation. Skin: Skin is dry. No abrasion, no bruising, no laceration and no rash noted. No cyanosis or erythema. Nails show no clubbing. ASSESSMENT Pain of joint of left ankle and foot (primary encounter diagnosis) Closed fracture of left ankle with routine healing, subsequent encounter Swelling Return in about 3 weeks (around 10/07/2019) for Fracture follow up. TREATMENT Etiology of the patient's problems were discussed today. - All questions asked were answered. - X-rays reviewed with the patient - Conservative management was discussed . - Continue wearing CAM walker for supportive shoe. - Dispensed compression sleve. - OK to continue tylenol, nonsteroidal anti-inflammatory - Rest and elevate daily - Letter for work dispensed to patient for an additional 3 weeks off. Discussed medication dosage, usage, goals of therapy, and side effects. Written instructions (see patient instructions) and verbal health teaching given to patient, patient verbalizes understanding and agrees with treatment plan. The documentation for this note was completed by Yolie Mclain acting as scribe for Jannette Grullon DPM. September 16, 2019 1:46 PM I agree with the Chief Complaint, ROS, and Past Histories independently gathered by the clinical business support administrator and the remaining scribed note accurately describes my personal service to the patient. This document has been created with the use of voice recognition technology. It may contain inaccuracies, misspellings, inaccurate syntax or inappropriate word context that escaped review. Jannette Grullon DPM Referring Provider: JANNETTE GRULLON [[id number]] Allergies As of Date: 09/16/2019 (No Known Allergies) Date Reviewed: 09/16/2019 Reviewed by: Yolie Mclain - Fully Assessed Reason for Visit: left ankle fracture [Other] Cmt: 6 week follow up. Primary Visit Diagnosis:Pain of joint of left ankle and foot [M25.572] Other Visit Diagnoses:Closed fracture of left ankle with routine healing, subsequent encounter [S82.892D] Swelling [R60.9] Prescriptions as of 09/16/2019 Sig: OMEPRAZOLE 40 MG CAPSULE,MEHUL* Take 40 mg by mouth once ruthy* HYDROXYZINE PAMOATE 50 MG CAP* Take 50 mg by mouth daily at * CLONAZEPAM 1 MG TABLET Take 1 mg by mouth three time* HYDROCODONE 5 MG-ACETAMINOPHE* Take 1 tablet by mouth every * ONDANSETRON 4 MG DISINTEGRATI* Take 1 tablet by mouth every * Problem List As Of Date 09/16/2019 Noted Resolved Pain of joint of left ankle and foot [M25.572] 08/05/2019 Swelling [R60.9] 08/05/2019 Closed fracture of left ankle [S82.892A] 08/05/2019 Disposition: Return in about 3 weeks (around 10/07/2019) for Fracture follow up. Follow-up and Disposition History Recorded Letter Text Encounter Status:Closed by JANNETTE GRULLON DPM on 09/16/19 Normal [facility] PROGRESSon 09-16-2019 PROGRESS HNO ID: [id number] Author: Jannette Grullon Service: ? Author Type: Physician Type: Progress Notes Filed: 09/16/2019 4:42 PM Note Text: Subjective The history is provided by the patient. Patient presents with: left ankle fracture: 6 week follow up. Patient presents in the office wearing his CAM walker, compression sock, and ankle strapping. Patient denies current pain. Patient denies taking OTC pain medication. Patient relates that he has attempted weightbearing outside of his cam walker however he did experience pain on his lateral ankle. Review of Systems Constitutional: Negative for chills and fever. Cardiovascular: Positive for leg swelling. Musculoskeletal: Positive for joint pain. Skin: Negative for itching and rash. Neurological: Negative for tingling and sensory change. Endo/Heme/Allergies: Does not bruise/bleed easily. Objective Physical Exam Constitutional: He is oriented to person, place, and time and well-developed, well-nourished, and in no distress. Cardiovascular: Intact distal pulses. Feet are cool to touch with normal temperature gradient. Capillary fill time is within normal limits. Musculoskeletal: General: Tenderness and edema present. Left ankle: He exhibits swelling. Tenderness. Lateral malleolus tenderness found. Achilles tendon normal. Feet: Comments: Mild tenderness and swelling noted left lateral ankle. Antalgic gait with decreased range of motion. X-ray findings:Healing oblique fracture of the lateral malleolus left ankle Neurological: He is alert and oriented to person, place, and time. He has normal sensation. Skin: Skin is dry. No abrasion, no bruising, no laceration and no rash noted. No cyanosis or erythema. Nails show no clubbing. ASSESSMENT Pain of joint of left ankle and foot (primary encounter diagnosis) Closed fracture of left ankle with routine healing, subsequent encounter Swelling Return in about 3 weeks (around 10/07/2019) for Fracture follow up. TREATMENT Etiology of the patient's problems were discussed today. - All questions asked were answered. - X-rays reviewed with the patient - Conservative management was discussed . - Continue wearing CAM walker for supportive shoe. - Dispensed compression sleve. - OK to continue tylenol, nonsteroidal anti-inflammatory - Rest and elevate daily - Letter for work dispensed to patient for an additional 3 weeks off. Discussed medication dosage, usage, goals of therapy, and side effects. Written instructions (see patient instructions) and verbal health teaching given to patient, patient verbalizes understanding and agrees with treatment plan. The documentation for this note was completed by Yolie Mclain acting as scribe for Jannette Grullon DPM. September 16, 2019 1:46 PM I agree with the Chief Complaint, ROS, and Past Histories independently gathered by the clinical business support administrator and the remaining scribed note accurately describes my personal service to the patient. This document has been created with the use of voice recognition technology. It may contain inaccuracies, misspellings, inaccurate syntax or inappropriate word context that escaped review. Jannette Grullon DPM [facility] PROGRESS HNO ID: [id number] Author: Shani Sarmiento (Rt) Service: ? Author Type: Batch Plant Operator Type: Progress Notes Filed: 09/16/2019 12:07 PM Note Text: Radiology Service Progress Note PATIENT NAME: Frantz Alexander DATE OF SERVICE: September 16, 2019 TIME: 12:07 PM PATIENT IDENTITY VERIFICATION COMPLETED USING TWO (2) METHODS: Name and Date of confirmed by patient verbally. PATIENT GENDER DATA: Male PATIENT RELEVANT IMPLANT DATA REVIEWED: Not Applicable RADIOLOGY DEPARTMENT: General X-ray: Exam(s) Completed: Lower Extremity X-Ray(s): Ankle, Left and Wt. Bearing and Foot, Left and Wt. Bearing: PERIPHERAL IV DATA: Not applicable SIGNED BY: RT Guillermina September 16, 2019 12:07 PM [facility] X[facility] ANKLE 3V AP/LAT/OBL LTon 09-16-2019 XR ANKLE 3V AP/LAT/OBL LT * * *Final Report* * * DATE OF EXAM: Sep 16 2019 12:08PM [id number] [id number] - XR ANKLE 3V AP/LAT/OBL LT / PROCEDURE REASON: multiple diagnoses * * * * Physician Interpretation * * * * EXAMINATION: XR ANKLE 3V AP/LAT/OBL LT, XR FOOT 3V AP/LAT/OBL LT CLINICAL HISTORY: follow up fx left ankle/foot Pain of joint of left ankle and foot Closed fracture of left ankle with routine healing, subsequent encounter Technique: XR ANKLE 3V AP/LAT/OBL LT, XR FOOT 3V AP/LAT/OBL LT -- LEFT with 3 views on 3 images Comparison: None RESULT: Ankle: There is a mildly displaced oblique to transverse lateral malleolus fracture with intra-articular extension. Normal talar dome. Minimal widening of the lateral clear space. No other fracture identified. Mild soft tissue swelling about the ankle. Foot: No fracture or dislocation. Joint spaces are maintained. Minimal degenerative changes at the hallux MTP joint. No focal soft tissue swelling. IMPRESSION: Left lateral malleolus fracture. No acute osseous finding in the remainder of the left foot. COMMUNICATION: Communicated with: Physician: JANNETTE GRULLON on 09/16/2019 at 1416 hours. Multicultural Services Librarian: PSCArlene Transcribe Date/Time: Sep 16 2019 2:16P Dictated by : KURTIS COTTER MD This examination was interpreted and the report reviewed and electronically signed by: KURTIS COTTER MD on Sep 16 2019 2:19PM EST [id number] Normal [facility] XR FOOT 3V AP/LAT/OBL LTon 1 11-16-2018 XR FOOT 3V AP/LAT/OBL LT * * *Final Report* * * DATE OF EXAM: Sep 16 2019 12:08PM [id number] [id number] - XR FOOT 3V AP/LAT/OBL LT / PROCEDURE REASON: Pain of joint of left ankle and foot * * * * Physician Interpretation * * * * EXAMINATION: XR ANKLE 3V AP/LAT/OBL LT, XR FOOT 3V AP/LAT/OBL LT CLINICAL HISTORY: follow up fx left ankle/foot Pain of joint of left ankle and foot Closed fracture of left ankle with routine healing, subsequent encounter Technique: XR ANKLE 3V AP/LAT/OBL LT, XR FOOT 3V AP/LAT/OBL LT -- LEFT with 3 views on 3 images Comparison: None RESULT: Ankle: There is a mildly displaced oblique to transverse lateral malleolus fracture with intra-articular extension. Normal talar dome. Minimal widening of the lateral clear space. No other fracture identified. Mild soft tissue swelling about the ankle. Foot: No fracture or dislocation. Joint spaces are maintained. Minimal degenerative changes at the hallux MTP joint. No focal soft tissue swelling. IMPRESSION: Left lateral malleolus fracture. No acute osseous finding in the remainder of the left foot. COMMUNICATION: Communicated with: Physician: JANNETTE GRULLON on 09/16/2019 at 1416 hours. Multicultural Services Librarian: KARY Transcribe Date/Time: Sep 16 2019 2:16P Dictated by : KURTIS COTTER MD This examination was interpreted and the report reviewed and electronically signed by: KURTIS COTTER MD on Sep 16 2019 2:19PM EST [id number] Normal [facility] 08[facility]30-2019 [facility] FRANTZ ALEXANDER ([id number]) 1975 Date Time Provider Department 08/30/19 JANNETTE GRULLON During your visit today, we recorded the following information about you: Leonard Velazquez 08/30/2019 12:41 PM Signed Patients mother dropped off forms placed in outbox please fill out fax, and contact patient once completed thank you. [phone] (home) Patients mother states that work has him scheduled to go back the of this month however he is not schedule with you until 09/16 in which he will have xrays that day as well. Please advise thank you. Leonard Mclain 08/30/2019 2:21 PM Signed Forms placed in to do pile and will be addressed. Yolie Mclain 09/01/2019 4:04 PM Signed VM left advising patient that paperwork has been completed and faxed. Yolie Mclain Allergies As of Date: 08/30/2019 (No Known Allergies) Date Reviewed: 08/05/2019 Reviewed by: Jannette Grullon - Fully Assessed Reason for Visit: Forms [913] Prescriptions as of 08/30/2019 Sig: OMEPRAZOLE 40 MG CAPSULE,MEHUL* Take 40 mg by mouth once ruthy* HYDROXYZINE PAMOATE 50 MG CAP* Take 50 mg by mouth daily at * CLONAZEPAM 1 MG TABLET Take 1 mg by mouth three time* HYDROCODONE 5 MG-ACETAMINOPHE* Take 1 tablet by mouth every * ONDANSETRON 4 MG DISINTEGRATI* Take 1 tablet by mouth every * Problem List As Of Date 08/30/2019 Noted Resolved Pain of joint of left ankle and foot [M25.572] INVALID FOR* Swelling [R60.9] INVALID FOR* Closed fracture of left ankle [S82.892A] INVALID FOR* Encounter Status:Closed by LEONARD TURCIOS on 08/30/19 [facility] Tee 08-09-2019 [facility] Telephone (PODIAM) FRANTZ ALEXANDER ([id number]) 1975 M Date Time Provider Department 08/09/19 JANNETTE GRULLON During your visit today, we recorded the following information about you: Loreto Velazquez 08/09/2019 3:40 PM Signed Pt called - [employer] will be Faxing form for patient to get shot term disability. Please call to confirm it was received [phone] (home) Yolie Mclain 08/11/2019 8:47 AM Signed Paperwork received and placed in to do pile. Will fax upon completion. Yolie Liu Pss 08/12/2019 3:19 PM Signed Patient called in to check on status of below. [phone] Kerry Liu Pss Sonam Evans CMA 08/12/2019 3:38 PM Signed Pt informed paperwork faxed Allergies As of Date: 08/09/2019 (No Known Allergies) Date Reviewed: 08/05/2019 Reviewed by: Jannette Grullon - Fully Assessed Reason for Visit: Electronic Communication [890] Prescriptions as of 08/09/2019 Sig: OMEPRAZOLE 40 MG CAPSULE,MEHUL* Take 40 mg by mouth once ruthy* HYDROXYZINE PAMOATE 50 MG CAP* Take 50 mg by mouth daily at * CLONAZEPAM 1 MG TABLET Take 1 mg by mouth three time* HYDROCODONE 5 MG-ACETAMINOPHE* Take 1 tablet by mouth every * ONDANSETRON 4 MG DISINTEGRATI* Take 1 tablet by mouth every * Problem List As Of Date 08/09/2019 Noted Resolved Pain of joint of left ankle and foot [M25.572] INVALID FOR* Swelling [R60.9] INVALID FOR* Closed fracture of left ankle [S82.892A] INVALID FOR* Encounter Status:Closed by YOLIE MCLAIN on 08/11/19 Normal [facility] CNCOon 08-05-2019 CNCO Letter Text Normal [facility] CNOVon 08-05-2019 CNOV Office Visit (PODIAM ) FRANTZ ALEXANDER ([id number]) 1975 M Date Time Provider Department 08/05/19 1:00 PM JANNETTE GRULLON During your visit today, we recorded the following information about you: Jannette Grullon DPM 08/05/2019 3:23 PM Signed Subjective The history is provided by the patient. Patient presents with: Fracture: Pt relates that 07/25 he fell on some steps and twisted his left ankle. Pt related that he was seen the next day and placed in a splint. Pt was then referred to podiatry. Review of Systems Constitutional: Negative for chills and fever. Cardiovascular: Positive for leg swelling. Musculoskeletal: Positive for joint pain. Skin: Negative for itching and rash. Neurological: Negative for tingling and sensory change. Endo/Heme/Allergies: Does not bruise/bleed easily. Objective Physical Exam Constitutional: He is oriented to person, place, and time and well-developed, well-nourished, and in no distress. Cardiovascular: Intact distal pulses. Feet are cool to touch with normal temperature gradient. Capillary fill time is within normal limits. Musculoskeletal: He exhibits edema and tenderness. Left ankle: He exhibits swelling. Tenderness. Lateral malleolus tenderness found. Achilles tendon normal. Feet: Pain and swelling noted left lateral ankle. Antalgic gait with decreased range of motion. X-ray findings:From [facility] [place] [facility] (Just the report no disc) There is a fracture of the lateral malleolus with a 3 mm lateral displacement at just proximal to the level of the ankle mortise. Ankle mortise is normally aligned. Tibia and fibular are otherwise normal. Medial and posterior malleolus and tibia are normal. Neurological: He is alert and oriented to person, place, and time. He has normal sensation. Skin: Skin is dry. Bruising noted. No abrasion, no laceration and no rash noted. No cyanosis or erythema. Nails show no clubbing. ASSESSMENT Pain of joint of left ankle and foot (primary encounter diagnosis) Swelling Closed fracture of left ankle with routine healing, subsequent encounter Return in about 6 weeks (around 09/16/2019) for f/u left ankle fracture. TREATMENT Etiology of the patient's problems were discussed today. X-rays were discussed with the patient. All questions asked were answered. Conservative versus surgical management was discussed . The patient would benefit from stabilization of the foot and ankle to limit motion at the fracture site. Stressed limited weightbearing and ambulation and use of a pneumatic cam walker to promote healing at the fracture site. Discussion of surgical fixation and the patient denied surgical intervention at this time. - Applied tubi-production technologist for compression/ankle strapping. - Applied pneumatic cam walker (DJO) - OK to continue tylenol, nonsteroidal anti-inflammatory as needed for pain. - ice daily as needed for swelling. - Rest and elevate daily - X-ray ordered for left foot and ankle to be taken prior to next visit. Discussed medication dosage, usage, goals of therapy, and side effects. Written instructions (see patient instructions) and verbal health teaching given to patient, patient verbalizes understanding and agrees with treatment plan. The patient was instructed to call the office if there are any problems prior to next visit. The documentation for this note was completed by Sonam Evans CMA acting as scribe for Jannette Grullon DPM. August 05, 2019 1:32 PM I agree with the Chief Complaint, ROS, and Past Histories independently gathered by the clinical business support administrator and the remaining scribed note accurately describes my personal service to the patient. This document has been created with the use of voice recognition technology. It may contain inaccuracies, misspellings, inaccurate syntax or inappropriate word context that escaped review. Jannette Grullon DPM Referring Provider: SELF [200] Allergies As of Date: 08/05/2019 (No Known Allergies) Date Reviewed: 08/05/2019 Reviewed by: Jannette Grullon - Fully Assessed Reason for Visit: Fracture [4131] Cmt: Pt relates that 07/25 he fell on some steps and twisted his left ankle. Pt related that he was seen the next day and placed in a splint. Pt was then referred to podiatry. Primary Visit Diagnosis:Pain of joint of left ankle and foot [M25.572] Other Visit Diagnoses:Swelling [R60.9] Closed fracture of left ankle with routine healing, subsequent encounter [S82.092D] Order(s):XR ANKLE GENERAL 3V AP/LAT/OBL LT [[id number]] Order #: [id number] FUTURE XR FOOT GENERAL 3V AP/LAT/OBL LT [[id number]] Order #: [id number] FUTURE Prescriptions as of 08/05/2019 Sig: OMEPRAZOLE 40 MG CAPSULE,MEHUL* Take 40 mg by mouth once ruthy* HYDROXYZINE PAMOATE 50 MG CAP* Take 50 mg by mouth daily at * CLONAZEPAM 1 MG TABLET Take 1 mg by mouth three time* HYDROCODONE 5 MG-ACETAMINOPHE* Take 1 tablet by mouth every * ONDANSETRON 4 MG DISINTEGRATI* Take 1 tablet by mouth every * Problem List As Of Date 08/05/2019 Noted Resolved Pain of joint of left ankle and foot [M25.572] INVALID FOR* Swelling [R60.9] INVALID FOR* Closed fracture of left ankle [S82.892A] INVALID FOR* Disposition: Return in about 6 weeks (around 09/16/2019) for f/u left ankle fracture. Follow-up and Disposition History Recorded Letter Text Encounter Status:Closed by JANNETTE GRULLON DPM on 08/05/19 Normal [facility] PROGRESSon 08-05-2019 PROGRESS HNO ID: [id number] Author: Jannette Grullon Service: ? Author Type: Physician Type: Progress Notes Filed: 08/05/2019 3:23 PM Note Text: Subjective The history is provided by the patient. Patient presents with: Fracture: Pt relates that 07/25 he fell on some steps and twisted his left ankle. Pt related that he was seen the next day and placed in a splint. Pt was then referred to podiatry. Review of Systems Constitutional: Negative for chills and fever. Cardiovascular: Positive for leg swelling. Musculoskeletal: Positive for joint pain. Skin: Negative for itching and rash. Neurological: Negative for tingling and sensory change. Endo/Heme/Allergies: Does not bruise/bleed easily. Objective Physical Exam Constitutional: He is oriented to person, place, and time and well-developed, well-nourished, and in no distress. Cardiovascular: Intact distal pulses. Feet are cool to touch with normal temperature gradient. Capillary fill time is within normal limits. Musculoskeletal: He exhibits edema and tenderness. Left ankle: He exhibits swelling. Tenderness. Lateral malleolus tenderness found. Achilles tendon normal. Feet: Pain and swelling noted left lateral ankle. Antalgic gait with decreased range of motion. X-ray findings:From [facility] [place] [facility] (Just the report no disc) There is a fracture of the lateral malleolus with a 3 mm lateral displacement at just proximal to the level of the ankle mortise. Ankle mortise is normally aligned. Tibia and fibular are otherwise normal. Medial and posterior malleolus and tibia are normal. Neurological: He is alert and oriented to person, place, and time. He has normal sensation. Skin: Skin is dry. Bruising noted. No abrasion, no laceration and no rash noted. No cyanosis or erythema. Nails show no clubbing. ASSESSMENT Pain of joint of left ankle and foot (primary encounter diagnosis) Swelling Closed fracture of left ankle with routine healing, subsequent encounter Return in about 6 weeks (around 09/16/2019) for f/u left ankle fracture. TREATMENT Etiology of the patient's problems were discussed today. X-rays were discussed with the patient. All questions asked were answered. Conservative versus surgical management was discussed . The patient would benefit from stabilization of the foot and ankle to limit motion at the fracture site. Stressed limited weightbearing and ambulation and use of a pneumatic cam walker to promote healing at the fracture site. Discussion of surgical fixation and the patient denied surgical intervention at this time. - Applied tubi-production technologist for compression/ankle strapping. - Applied pneumatic cam walker (DJO) - OK to continue tylenol, nonsteroidal anti-inflammatory as needed for pain. - ice daily as needed for swelling. - Rest and elevate daily - X-ray ordered for left foot and ankle to be taken prior to next visit. Discussed medication dosage, usage, goals of therapy, and side effects. Written instructions (see patient instructions) and verbal health teaching given to patient, patient verbalizes understanding and agrees with treatment plan. The patient was instructed to call the office if there are any problems prior to next visit. The documentation for this note was completed by Sonam Evans CMA acting as scribe for Jannette Grullon DPM. August 05, 2019 1:32 PM I agree with the Chief Complaint, ROS, and Past Histories independently gathered by the clinical business support administrator and the remaining scribed note accurately describes my personal service to the patient. This document has been created with the use of voice recognition technology. It may contain inaccuracies, misspellings, inaccurate syntax or inappropriate word context that escaped review. Jannette Grullon DPM Normal [facility] 07-26-2019 Fibular fracture wit h 3 mm displacement. [facility] [place], [place] EXAM: XR ANKLE LEFT (MIN THREE VIEWS), XR TIBIA FIBULA LEFT (TWO VIEWS) HISTORY: Reason for exam:->fall, pain/swelling over medial malleolus. COMPARISON: None. TECHNIQUE: Three views of the left ankle, two views of the left tibia-fibula (three images). FINDINGS: There is a fracture of the lateral malleolus with 3 mm lateral displacement at and just proximal to the level of the ankle mortise. Ankle mortise is normally aligned. Tibia and fibula are otherwise normal. Medial and posterior malleolus and tibia are normal. [place], [place] Dustin, Mhpn Incoming Radiant Results From [employer] - 07/26/2019 2:42 PM EDT EXAM: XR ANKLE LEFT (MIN THREE VIEWS), XR TIBIA FIBULA LEFT (TWO VIEWS) HISTORY: Reason for exam:->fall, pain/swelling over medial malleolus. COMPARISON: None. TECHNIQUE: Three views of the left ankle, two views of the left tibia-fibula (three images). FINDINGS: There is a fracture of the lateral malleolus with 3 mm lateral displacement at and just proximal to the level of the ankle mortise. Ankle mortise is normally aligned. Tibia and fibula are otherwise normal. Medial and posterior malleolus and tibia are normal. IMPRESSION: Fibular fracture with 3 mm displacement. [facility], [place] XR ANKLE LEFT (MIN 3 VIEWS)o n 07-26-2019 XR ANKLE LEFT (MIN 3 VIEWS) EXAM: XR ANKLE LEFT (MIN THREE VIEWS), XR TIBIA FIBULA LEFT (TWO VIEWS) HISTORY: Reason for exam:->fall, pain/swelling over medial malleolus. COMPARISON: None. TECHNIQUE: Three views of the left ankle, two views of the left tibia-fibula (three images). FINDINGS: There is a fracture of the lateral malleolus with 3 mm lateral displacement at and just proximal to the level of the ankle mortise. Ankle mortise is normally aligned. Tibia and fibula are otherwise normal. Medial and posterior malleolus and tibia are normal. IMPRESSION: Fibular fracture with 3 mm displacement. Interpreted by: Amish Rojas Jr., MD Signed by: Amish Rojas Jr., MD 07/26/19 Final result Normal [facility] XR TIBIA FIBULA LEFT (2 VIEW S)on 07-26-2019 XR TIBIA FIBULA LEFT (2 VIEWS) EXAM: XR ANKLE LEFT (MIN THREE VIEWS), XR TIBIA FIBULA LEFT (TWO VIEWS) HISTORY: Reason for exam:->fall, pain/swelling over medial malleolus. COMPARISON: None. TECHNIQUE: Three views of the left ankle, two views of the left tibia-fibula (three images). FINDINGS: There is a fracture of the lateral malleolus with 3 mm lateral displacement at and just proximal to the level of the ankle mortise. Ankle mortise is normally aligned. Tibia and fibula are otherwise normal. Medial and posterior malleolus and tibia are normal. IMPRESSION: Fibular fracture with 3 mm displacement. Interpreted by: Amish Rojas Jr., MD Signed by: Amish Rojas Jr., MD 07/26/19 Final result Normal [facility] Liver Profileon 04-13-2019 Albumin [Mass/Vol] 4.9 g/dL Normal 3.5-5.2 [facility] Comment on above: Performed By: #### L IVP #### [facility] [address] [place], [place] [id number] [employer] Curer: Darnell Ibarra MD Alkaline Phos 143 U/L High 40-129 [facility] Comment on above: Performed By: #### L IVP #### [facility] [address] [place], [place] [id number] [employer] Curer: Darnell Ibarra MD ALT [Catalytic activity/Vol] 11 U/L Normal 5-41 [facility] Comment on above: Performed By: #### L IVP #### [facility] [address] [place], [place] [id number] [employer] Curer: Darnell Ibarra MD AST [Catalytic activity/Vol] 15 U/L Normal <40 [facility] Comment on above: Performed By: #### L IVP #### [facility] [address] [place], [place] [id number] [employer] Curer: Darnell Ibarra MD Bilirubin Ql (U) 0.70 mg/dL Normal 0.30-1.20 [facility] Comment on above: Performed By: #### L IVP #### [facility] [address] [place], [place] [id number] [employer] Curer: Darnell Ibarra MD Bilirubin, Indirect CANNOT BE CALCULATED Normal 0.00-1 .00 [facility] Comment on above: Performed By: #### L IVP #### [facility] [address] [place], [place] [id number] [employer] Curer: Darnell Ibarra MD Bilirubin.direct [Mass/Vol] mg/dL Normal <0.31 [facility] Comment on above: Performed By: #### L IVP #### [facility] [address] [place], [place] [id number] [employer] Curer: Darnell Ibarra MD Protein [Mass/Vol] 7.1 g/dL Normal 6.4-8.3 [facility] Comment on above: Performed By: #### L IVP #### [facility] [address] [place], [place] [id number] [employer] Curer: Darnell Ibarra MD Albumin/Globulin [Mass ratio] NOT REPORTED Normal 1.0-2.5 [facility] Comment on above: Performed By: #### L IVP #### [facility] [address] [place], [place] [id number] [employer] Curer: Darnell Ibarra MD Globulin (S) [Mass/Vol] NOT REPORTED Normal 1.5-3.8 [facility] Comment on above: Performed By: #### L IVP #### [facility] [address] [place], [place] [id number] [employer] Curer: Darnell Ibarra MD C-Reactive Proteinon 017 C reactive protein (CRP) 0.3 mg/dL Normal <0.9 [facility] Comment on above: Performed By: #### W SR ####[facility] [id number] [place], [place] [phone] CBC and Differentialon 05-15 Abs Baso 0.03 k/uL Normal 0.00-0.10 [facility] Abs [place] 0.70 k/uL Normal 0.00-0.86 [facility] Abs Neut 7.75 k/uL High 1.45-7.50 [facility] Basophils/100 WBC Auto (Bld) 0.3 % Normal [facility] DTYPE Auto Diff Normal [facility] Eosinophils 0.05 10*3/uL Normal 0.00-0.45 [facility] Eosinophils/100 leukocytes 0.5 % Normal [facility] Erythrocyte distribution width Auto Ratio (RBC) 12.9 % Normal 11.5-15.0 [facility] Erythrocytes (RBC) 4.82 10*6/uL Normal 4.20-6.00 [facility] Erythrocytes (RBC) 0.00 10*6/uL Normal [facility] Erythrocytes (RBC) 0.0 /100 WBC Normal 0 [facility] Hematocrit (HCT) 45.4 % Normal 39.0-51.0 [facility] Hemoglobin mass conc (Bld) 15.8 g/dL Normal 13.0-17.0 [facility] Lymphocytes 1.04 10*3/uL Normal 1.00-4.00 [facility] Lymphocytes/100 leukocytes 10.9 % Normal [facility] MCH 32.8 pG Normal 26.0-34.0 [facility] MCHC mass conc (RBC) 34.8 g/dL Normal 30.5-36.0 [facility] MCV 94.2 fL Normal 80.0-100.0 [facility] Monocytes/100 leukocytes 7.3 % Normal [facility] Neutrophils/100 WBC Auto (Bld) 81.0 % Normal [facility] Platelet mean volume (PMV) 8.7 fL Low 9.0-12.7 [facility] Platelets 249 10*3/uL Normal 150-400 [facility] WBC (Leukocytes) 9.57 10*3/uL Normal 3.70-11.[address] [facility] [address] BRAIN WO IVCONon 05-15-20 CT BRAIN WO IVCON * * *Final Report* * *DATE OF EXAM: May 15 2017 10:47AM [facility] 0504 - CT BRAIN WO IVCON / REASON: Tingling of right upper extremity * * * * Physician Interpretation * * * * EXAMINATION: CT BRAIN WITHOUT CONTRASTCLINICAL HISTORY: Right upper extremity tingling.TECHNIQUE: Routine CT scan of the brain without contrast. Serial axial unenhanced images were obtained from the vertex to the foramen magnum.M: CTBWO_2CT Dose-Length Product (DLP): 1164 mGy*cmCT Dose Reduction Employed:COMPARISON: None.RESULT:Post-operat wayne change: None.Acute change: No evidence of an acute infarct or other acute parenchymal process.Hemorrhage: No evidence of acute intracranial hemorrhage.Mass effect / Mass lesion: There is no evidence of an intracranial mass or extraaxial fluid collection. No significant mass effect.Chronic change: None apparent.Ventricles: The ventricles are within normal limits of size and configuration for age.Paranasal sinuses and skull base: The visualized paranasal sinuses are clear. The skull base and imaged soft tissues are unremarkable.IMPRESSION :No CT evidence of acute intracranial abnormality.Transcripti onist: PSCB Transcribe Date/Time: May 15 2017 10:51ADictated by : YO VALLES MDThiquinton examination was interpreted and the report reviewed and electronically signed by: YO VALLES MD on May 15 2017 10:52AM [facility] CT CERVICAL SPINE WO IVCONon 05-15-2017 CT CERVICAL SPINE WO IVCON * * *Final Report* * *DATE OF EXAM: May 15 2017 10:47AM [facility] 0505 - CT CERVICAL SPINE WO IVCON / REASON: Pain * * * * Physician Interpretation * * * * EXAMINATION: CT CERVICAL SPINE WITHOUT CONTRASTCLINICAL HISTORY: Right upper extremity tingling.TECHNIQUE: CT of the cervical spine without IV contrast. Spiral, high resolution axial images were obtained from the skull base to the cervicothoracic junction with sagittal and coronal planar reconstructions.M: CTCPWO_3CT Dose-Length Product (DLP): 1164 mGy*cmCT Dose Reduction Employed: Iterative recon and mAs-kVp adjusted using patient size-ageCOMPARISON: None.RESULT:Counting reference: Craniocervical junction.Alignment: Alignment is anatomic.Craniocervical junction: Craniocervical junction is normal.Osseous structures/fracture: No evidence of a lytic or blastic process in the visualized spine. No evidence of acute or chronic fracture.Cervical soft tissues: The paraspinal soft tissues planes are maintained.Degenerative changes: Endplate sclerosis seen at C5-C6. Central disc osteophyte complex and bilateral facet and uncovertebral degenerative change seen at C5-C6. Mild canal stenosis and mild right foraminal narrowing seen at C5-C6. At the remaining cervical levels, there is no significant canal or foraminal narrowing.Other: No significant other findings.IMPRESSION:Deg enerative changes with mild canal stenosis and mild right foraminal narrowing at C5-C6.Otherwise, unremarkable CT cervical spine without contrast.Transcriptioni st: PSCB Transcribe Date/Time: May 15 2017 10:52ADictated by : YO VALLES MDThis examination was interpreted and the report reviewed and electronically signed by: YO VALLES MD on May 15 2017 10:54AM EST Normal [facility] Comp Metabolic Panelon 05-15 Alanine aminotransferase (ALT) 203 U/L High 10-54 [facility] Albumin 4.8 g/dL Normal 3.9-4.9 [facility] Alkaline phosphatase (ALP) 213 U/L High 36-108 [facility] Anion gap 17 mmol/L Normal 9-18 [facility] Aspartate aminotransferase (AST) 315 U/L High 14-40 [facility] Bilirubin (total) 0.8 mg/dL Normal 0.2-1.3 [facility] Calcium 9.5 mg/dL Normal 8.6-10.0 [facility] Chloride 96 mmol/L Low 97-105 [facility] CO2 26 mmol/L Normal 22-30 [facility] Creatinine 0.83 mg/dL Normal 0.73-1.22 [facility] eGFR (non-black) mL/min/{1.73_m2} Normal [facility] Comment on above: Result Comment: eGFR (Estimated GFR) Units of measure: mL/min/1.73 meters squaredeGFR is derived from the reexpressed MDRD Study equation using the following parameters: serum creatinine, age, gender and race. The creatinine assay has been calibrated to be traceable to IDMS.An eGFR <60 mL/min/1.73m2 for >3 months is consistent with chronic kidney disease. Refer to KDOQI guidelines for clinical interpretation.In patients with unstable renal function, e.g. those with acute kidney injury, the eGFR may not accurately reflect actual GFR. Glucose mass conc 99 mg/dL Normal 74-99 [facility] Comment on above: Result Comment: The [place] [employer] (ADA) provides guidance for cutoff values for fasting glucose and random glucose. The ADA defines fasting as no caloric intake for at least 8 hours. Fasting plasma glucose results between 100 to 125 mg/dL indicate increased risk for diabetes (prediabetes).Fasting plasma glucose results greater than or equal to 126 mg/dL meet the criteria for diagnosis of diabetes. In the absence of unequivocal hyperglycemia, results should be confirmed by repeat testing. In a patient with classic symptoms of hyperglycemia or hyperglycemic crisis, random plasma glucose results greater than or equal to 200 mg/dL meet the criteria for diagnosis of diabetes.Reference: Standards of Medical Care in Diabetes 2016, [place] [employer]. Diabetes Care. 2016.39(Suppl 1). Potassium molar conc 4.6 mmol/L Normal 3.7-5.1 [facility] Protein 8.0 g/dL Normal 6.3-8.0 [facility] Sodium 139 mmol/L Normal 136-144 [facility] Urea nitrogen 10 mg/dL Normal 9-24 [facility] ED NOTEon 05-15-2017 ED NOTE HNO ID: [id number]: Caren (Rn) YOLY Nicoleervice: (none)Author Type: Registered NurseType: ED NotesFiled: 05/15/2017 12:22 PMNote Text: Iv out dc ho me with pancreatitis, f.u with pmd and gi, pt verbalizesagreement and udnerstanding of f/u and of meds for abd pain and arm pain.Cl liq diet today. No alcohol. [facility] ED NOTE HNO ID: [id number] Author: Cade GomezMedicLane Srivastava Service: (none) Author Type: Cutter Operator and Batch Plant Operator Type: ED Notes Filed: 05/15/2017 11:42 AM Note Text: Patient able to drink full glass of water. Normal [facility] ED NOTE HNO ID: [id number] Author: Caren (Rn) Corey RN Service: (none) Author Type: Registered Nurse Type: ED Notes Filed: 05/15/2017 11:15 AM Note Text: Ns up waiting ct reports, urine was sent [facility] ED NOTE HNO ID: [id number] Author: Caren (Rn) Corey RN Service: (none) Author Type: Registered Nurse Type: ED Notes Filed: 05/15/2017 11:03 AM Note Text: Urine tox sent [facility] ED NOTE HNO ID: [id number] Author: Neyda GomezMedic) [address] Service: (none) Author Type: Cutter Operator and Batch Plant Operator Type: ED Notes Filed: 05/15/2017 10:47 AM Note Text: Pt not in room at this time. Unable to obtain vital signs. Normal [facility] ED NOTE HNO ID: [id number] Author: Caren (Rn) Corey, RN Service: (none) Author Type: Registered Nurse Type: ED Notes Filed: 05/15/2017 10:17 AM Note Text: US at [facility] ED NOTE HNO ID: [id number] Author: Caren (Rn) Corey, RN Service: (none) Author Type: Registered Nurse Type: ED Notes Filed: 05/15/2017 9:21 AM Note Text: Medicated as per [facility] for abd pain and nausea. PA at . [facility] ED NOTE HNO ID: [id number]: Caren (Rn) YOLY Nicoleervice: (none)Author Type: Registered NurseType: ED NotesFiled: 05/15/2017 8:40 AMNote Text:Pt here for eval of on going abd pain, generalized since nov , was givenomeprazole and Flagyl with no relief, has had Upper and lower gi study .No diagnosis was made. See's gi in [facility].The pain is worse over the last 2 weeks, diarrhea x 2 weeks no blood foamymucusy.Also c.o rt arm tingling since Friday. No known injury . Motion andsensation intact. [facility] ED PROV NOTEon 05-15-2017 ED PROV NOTE HNO ID: [id number]: Tony Hammond III, MDService: Emergency MedicineAuthor Type: PhysicianType: ED Provider NotesFiled: 05/16/2017 1:17 PMNote Text:ED Provider NotePatient Name: Frantz Martinez DmitriyN: [id number] DATE: 05/15/17HistoryPatient presents with:Abdominal Pain: since Pain: tingling since fridayDiarrhea: x 2 weeks 3 times dayHPI Comments: Patient is a 42-year-old male with history of anxiety, acutepancreatitis, alcohol use presenting to the ED with worsening generalizedabdominal pain ?5 days. Pain is epigastric, periumbilical. It is aching,sharp, radiating to the back. It has progressively worsened, now moreconstant. Has not taken anything for pain. Also complains of watery,mucousy foamy diarrhea for the past couple of weeks, no blood. Alsocomplains of nausea. Also complains of having constant right arm tinglingfor the past week. No history of this tingling. He saw his regulardoctor for the symptoms a couple of days ago, was told to follow-up withGI and that the tingling was likely due to sleeping on it funny .Patient has been seen for abdominal pain by GI at OSH for the past coupleof years, pain has worsened since November. CT abd in December was normal.Endoscopy, colonoscopy in 2014 were normal. No significant diagnosesincluding any inflammatory bowel disease. No fevers, chills, sweats,chest pain or shortness of breath, cough, cold-like symptoms, urinarychanges, vomiting, neck pain or stiffness, headache, confusion, dizzinessor lightheadedness, weakness, actually numbness. Just completed a courseof Flagyl.History provided by: PatientLanguage editorial clerk used: NoPAST MEDICAL HISTORYDiagnosis Date- AnxietyNo past surgical history on file.No family history on file.Social History Marital status: Single Spouse name: Years of education: Number of children:Social History Main TopicsALLERGIESNo Known AllergiesReview of SystemsConstitutional: Negative for chills, diaphoresis, fatigue and fever.HENT: Negative for congestion, rhinorrhea, sore throat and troubleswallowing.Respi ratory: Negative for cough and shortness of breath.Cardiovascular: Negative for chest pain.Gastrointestinal: Positive for abdominal pain, diarrhea and nausea.Negative for constipation and vomiting.Genitourinary: Negative for difficulty urinating, flank pain andfrequency.Musculoske letal: Negative for arthralgias, back pain and myalgias.Skin: Negative for color change and pallor.Neurological: Negative for dizziness, syncope, weakness andlight-headedness. Tingling in right armPsychiatric/Behavior al: Negative for confusion.Physical ExamBP 117/93 Pulse 76 Temp (Src) 98.6 (Oral) Resp 20 Ht 6' 0 (1.83m) Wt 156 lb (70.8kg) SpO2 96% BMI 21.15 kg/(m2).Physical ExamConstitutional: He is oriented to person, place, and time. He appearswell-developed and well-nourished. No distress.HENT:Head: Normocephalic and atraumatic.Eyes: Conjunctivae are normal. Pupils are equal, round, and reactive tolight.Neck: Normal range of motion. Neck supple.No neck tenderness with normal AROMCardiovascular: Normal rate, regular rhythm, normal heart sounds andintact distal pulses.Pulmonary/Chest: Effort normal and breath sounds normal. No respiratorydistress.Abd ominal: Normal appearance and bowel sounds are normal. There is notenderness. There is no rigidity, no rebound, no guarding, no tendernessat McBurney's point and negative Pickens's sign.No tenderness throughout abdomenNeurological: He is alert and oriented to person, place, and time. He hasnormal strength. He displays no atrophy. No sensory deficit. He exhibitsnormal muscle tone.Sensation, strength, radial pulses intact throughout upper extremitiesSkin: Skin is warm and dry. He is not diaphoretic.Psychiatric : He has a normal mood and affect. His behavior is normal.Nursing note and vitals reviewed.Diagnostic TestingED Labs Ordered and ReviewedCOMPREHENSIVE METABOLIC PANEL (AV,EU,FV,HL,ESTHER,MM,SP) - Abnormal; Notablefor the following: Result Value Ref Range Alkaline Phosphatase 213 (*) 36 - 108 U/L AST 315 (*) 14 - 40 U/L Chloride 96 (*) 97 - 105 mmol/L ALT 203 (*) 10 - 54 U/L All other components within normal limitsCBC + AUTO DIFF (AV,EU,FV,HL,ESTHER,MM,SP) - Abnormal; Notable for thefollowing: MPV 8.7 (*) 9.0 - 12.7 fL Abs Neut (ANC) 7.75 (*) 1.45 - 7.50 k/uL All other components within normal limitsUA DIP, URINE (POC) - Abnormal; Notable for the following: BILIRUBIN UA (POCT) Small (*) Neg KETONE UA (POCT) 40 (*) Neg mg/dL HEMOGLOBIN/BLOOD UA (POCT) Trace-intact (*) Neg PROTEIN UA (POCT) 100 (*) Neg mg/dL All other components within normal limits Narrative: Meter ID: [id number] BLOOD (EU,FV,HL,ESTHER,MM,SP) - Abnormal; Notable for the following: Lipase 274 (*) 16 - 61 U/L All other components within normal limitsUA DIP, URINE (POC)C-REACTIVE PROTEIN (CRP) (AV,EU,FV,HL,ESTHER,MM,SP)S ED RATE ERYTHROCYTE (AV,EU,FV,HL,ESTHER,MM,SP)M AGNESIUM BLOOD (EU,FV,HL,ESTHER,MM,SP)URIN E DRUG SCREEN (AV,EU,FV,HL,ESTHER,MM,SP)C T CERVICAL SPINE WO IVCON ([place]) Final Result IMPRESSION: Degenerative changes with mild canal stenosis and mild right foraminal narrowing at C5-C6. Otherwise, unremarkable CT cervical spine without contrast. Multicultural Services Librarian: [facility] Transcribe Date/Time: May 15 2017 10:52A Dictated by : YO VALLES MD This examination was interpreted and the report reviewed and electronically signed by: YO VALLES MD on May 15 2017 10:54AM ESTUS ABDOMEN RUQ (AV) Final Result IMPRESSION: HEPATIC STEATOSIS. Multicultural Services Librarian: [facility] Transcribe Date/Time: May 15 2017 10:50A Dictated by : ANGY ALEXANDER MD This examination was interpreted and the report reviewed and electronically signed by: ANGY ALEXANDER MD on May 15 2017 10:51AM ESTCT BRAIN WO IVCON ([place]) Final Result IMPRESSION: No CT evidence of acute intracranial abnormality. Multicultural Services Librarian: [facility] Transcribe Date/Time: May 15 2017 10:51A Dictated by : YO VALLES MD This examination was interpreted and the report reviewed and electronically signed by: YO VALLES MD on May 15 2017 10:52AM ESTProceduresMedical Decision Making / ED CourseED CoursePatient is a 42-year-old male with history of anxiety, acute pancreatitis,alcohol use presenting to the ED with worsening generalized abdominal pain?5 days with nausea, mucousy watery diarrhea ?2 weeks, constant right armtingling for the past week. His PCP a couple days ago advised hefollow-up with GI and that the tingling was likely due to sleeping on itfunny . Sees GI at OSH for the past couple of years, CT abd in December wasnormal. Endoscopy, colonoscopy normal in 2014. Just completed a courseof Flagyl. Afebrile, stable, no significant distress, nontoxic-appearing. No abdominal tenderness and no signs of peritonitis or obstruction. Labsare positive for elevated AST, ALT, alkaline phosphatase, lipase. Theyare negative leukocytosis, acute anemia, acute kidney or electrolytedysfunction, elevated CRP. Urine has trace blood but negative fornitrates or leuk trase, no concern for UTI. Abdominal ultrasound isnegative for any acute processes but does show hepatic steatosis.Furthermore he has no neurovascular compromise in his arms, signs ofsignificant cervical neck injury, any focal neurological deficits. CT ofbrain is negative for any acute intracranial processes pre-CT of thecervical spine is positive for degenerative changes specifically at C5/J1uhzetjko radiculopathy causing the tingling. Given IV fluids, GI cocktail,Pepcid IV, Zofran IV. Upon reevaluation, patient is feeling slightlybetter, no nausea or vomiting, but continues to have pain. He did notwant anything further IV. I gave him one [place] dose of prednisone here.Patient appears to have alcohol induced pancreatitis, he does admit todrinking beer daily. He states he is able to stop for months at a time,does not want any information on rehabilitation service at this time.Advised he needs to gear clear fluid diet for the next 24 hours, he statesunderstanding. Furthermore, I advise that for his cervical radiculopathy,I will prescribe him prednisone and to follow-up with primary caresymptoms persist, he may need to see a spinal specialist.Encounter Diagnosis ICD-10-CM1. Alcohol-induced acute pancreatitis without infection or hshzowdqFxwgvnN15.202. Cervical radiculopathyActive M54.12PlanDischarge home with prescriptions for prednisone 60 mg ?5 days, [place] 8tabs.Follow up with primary care and GI mike.Return if symptoms worsen, new symptoms arise (high fevers, vomiting,weakness, confusion).Patient expressed understanding and consented to the above plan. Nobarriers of communication were apparent and I answered all questions.Condition at time of disposition: improved and stableSIGNATURE: Antonino Hernandez (Irina) Zbhsdb76/20/17 1156Attending NoteI have personally performed a face to face assessment of the patient andhave reviewed the PA/LEAD PRINCIPAL TECHNICAL ARCHITECT note. My jackson findings include:This is a 42-year-old male who presents for complaints of epigastricabdominal pain as well as right upper extremity paresthesias. He reportsthe paresthesias are worse when he moves his neck. His s abdominal painappears to be an acute exacerbation of her chronic problem. He's hadnumerous evaluations for this epigastric abdominal pain which she seengastroenterology for the past couple years and received an endoscopy. Hada CT December of this year. He does report to drinking a significant amountof alcohol. On objective laboratory evaluation he had what appears to bealcoholic pancreatitis. His lipase is 274. He does have a transaminitiswith AST predominate patient consistent with alcoholic pancreatitis andhis ultrasound shows no evidence of any biliary duct or gallstones. Hisinflammatory markers are negative. No indication to do an emergent CTimaging at this point time. His CT shows Degenerative changes with mildcanal stenosis in the right foraminal narrowing at C5-C6 where histransient tingling is--no motor deficits or stroke distribution. Offeredobservation for symptomatic control but he is taking by mouth without anydifficulty. Recommended follow up with gastroenterology and alcoholcessation. Recommend PCP f/u and to come back for any acute change orworsening of symptoms.Signature: Tony Hammond III, MDDate: 05/16/2017Time: 1:13 James Hammond III, MD05/16/17 1317 Normal [facility] Lipaseon 05-15-2017 Lipase 274 U/L High 16-61 [facility] Magnesiumon 05-15-2017 Magnesium 2.1 mg/dL Normal 1.7-2.3 [facility] Comment on above: Performed By: #### W SR ####[facility], [place] [phone] PROGRESSon 05-15-2017 PROGRESS HNO ID: [id number]: Lori Burns: RadiologyAuthor Type: TechnicianType: Progress NotesFiled: 05/15/2017 11:12 AMNote Text: Radiology Service Progress NotePATIENT NAME: Frantz JenkinsRN: [id number] OF SERVICE: May 15, 2017TIME: 11:11 AMPATIENT IDENTITY VERIFICATION COMPLETED USING TWO (2) METHODS: Patientconfirmed name verbally and Date of .PATIENT GENDER DATA: MalePATIENT RELEVANT IMPLANT DATA REVIEWED: Not ApplicableRADIOLOGY DEPARTMENT: Ultrasound RUQPERIPHERAL IV DATA: Not applicableSIGNED BY: Lori Min [facility] 11:11 AM [facility] PROGRESS HNO ID: [id number]: Wendie Carlson CTS (Ct)ervice: RadiologyAuthor Type: TechnicianType: Progress NotesFiled: 05/15/2017 10:45 AMNote Text: Radiology Service Progress NotePATIENT NAME: Frantz JenkinsRN: [id number] OF SERVICE: May 15, 2017TIME: 10:45 AMPATIENT IDENTITY VERIFICATION COMPLETED USING TWO (2) METHODS: Patientconfirmed name verbally and ID band matches..PATIENT GENDER DATA: MalePATIENT RELEVANT IMPLANT DATA REVIEWED: Not ApplicableRADIOLOGY DEPARTMENT: CT; Exam(s) Completed: Brain and SpinePERIPHERAL IV DATA: Not applicableSIGNED BY: Wendie Carlson [facility] 2016 10:45 AM [facility] Sed Rate [place] 2016 Sed Rate [facility] 10 mm/hr Normal 0-15 [facility] Comment on above: Performed By: #### W ####[facility], [place] [phone] Toxicology Screen,[place]ron 05-15 Amphetamines, Urine Negative Normal Negative [facility] Comment on above: Result Comment: Cuto ff threshold at 1000 ng/mL.Cross reactivity with other substances can occur with immunoassay screening. In house validation testing showed 90% of preliminary positive samples were confirmed by mass spectrometry (high specificity, quantitative) testing. Greater than 99% of negative screen results were confirmed by mass spectometry (high specificity, quantitative) testing. Barbiturates, Urine Negative Normal Negative [facility] Comment on above: Result Comment: Cuto ff threshold at 200 ng/mL.Cross reactivity with other substances can occur with immunoassay screening. In house validation testing showed greater than 99% of preliminary positive samples were confirmed by mass spectrometry (high specificity, quantitative) testing. Greater than 99% of negative screen results were confirmed by mass spectrometry (high specificity, quantitative) testing. Benzodiazepines, Ur Negative Normal Negative [facility] Comment on above: Result Comment: Cuto ff threshold at 200 ng/mL.Cross reactivity with other substances can occur with immunoassay screening. In house validation testing showed 90% of preliminary positive samples were confirmed by mass spectrometry (high specificity, quantitative) testing. Greater than 99% of negative screen results were confirmed by mass spectometry (high specificity, quantitative) testing. Cannabinoids, Urine Negative Normal Negative [facility] Comment on above: Result Comment: Cuto ff threshold at 50 ng/mL.Cross reactivity with other substances can occur with immunoassay screening. In house validation testing showed greater than 99% of preliminary positive samples were confirmed by mass spectrometry (high specificity, quantitative) testing. Greater than 99% of negative screen results were confirmed by mass spectrometry (high specificity, quantitative) testing. Cocaine, Urine Negative Normal Negative [facility] Comment on above: Result Comment: Cuto ff threshold at 300 ng/mL.Cross reactivity with other substances can occur with immunoassay screening. In house validation testing showed greater than 99% of preliminary positive samples were confirmed by mass spectrometry (high specificity, quantitative) testing. Greater than 99% of negative screen results were confirmed by mass spectrometry (high specificity, quantitative) testing. Ethanol, Urine <11 Normal <11 [facility] Opiates, Urine Negative Normal Negative [facility] Comment on above: Result Comment: Cuto ff threshold at 300 ng/mL.Cross reactivity with other substances can occur with immunoassay screening. In house validation testing showed greater than 99% of preliminary positive samples were confirmed by mass spectrometry (high specificity, quantitative) testing. Greater than 99% of negative screen results were confirmed by mass spectrometry (high specificity, quantitative) testing. Oxycodone, Urine Negative Normal Negative [facility] Comment on above: Result Comment: Cuto ff threshold at 100 ng/mL.Cross reactivity with other substances can occur with immunoassay screening. In house validation testing showed greater than 99% of preliminary positive samples were confirmed by mass spectrometry (high specificity, quantitative) testing. Greater than 99% of negative screen results were confirmed by mass spectrometry (high specificity, quantitative) testing.Comment:Immunoassay screen only. Detection of any drug(s) in this urine toxicology panel is presumptive only. Intended use is for evaluation of suspected acute overdose. These tests are for medical purposes only and should not be used for compliance monitoring, legal, or forensic use.If clinically indicated, confirmation by high specificity, quantitative methodology may be requested on the same specimen through Client Services ([phone]) if contacted within 48 hours of initial testing.These tests were developed and their performance characteristics determined by [facility]. They have not been cleared or approved by the FDA. [facility] is regulated under CLIA as qualified to perform high complexity testing.These tests are used for clinical purposes. They should not be regarded as investigational or for research. Phencyclidine, Urine Negative Normal Negative [facility] Comment on above: Result Comment: Cuto ff threshold at 25 ng/mL.Cross reactivity with other substances can occur with immunoassay screening. In house validation testing showed 80% of preliminary positive samples were confirmed by mass spectrometry (high specificity, quantitative) testing. Greater than 99% of negative screen results were confirmed by mass spectrometry (high specificity, quantitative) testing. US ABDOMEN RUQon 05-15-2017 US ABDOMEN RUQ * * *Final Report* * *DATE OF EXAM: May 15 2017 10:30AM [facility] 0012 - US ABDOMEN RUQ / REASON: Abdominal pain * * * * Physician Interpretation * * * * RIGHT UPPER QUADRANT ULTRASOUNDHISTORY: Abdominal painCOMPARISON: None.TECHNIQUE: Sonography of the right upper quadrant was performed. Images were obtained and stored in a permanent archive.RESULTS:Pancrea s: Obscured by shadowing from overlying bowel gas.Liver: Echotexture: Normal, homogeneous Echogenicity: Increased Surface contour: Smooth Lesions: None.Biliary: Intrahepatic bile ducts: Normal CBD: 0.4 cm, normal Gallbladder: -Contents: No cholelithiasis -Wall: Normal -Sonographic Pickens's: Negative -Adjacent soft tissues: No adjacent inflammatory changeRight Kidney: Normal with no hydronephrosis.Ascites: None.IMPRESSION:HEPATIC STEATOSIS.Needle Loom Operator Helper ist: PSCB Transcribe Date/Time: May 15 2017 10:50ADictated by : ANGY ALEXANDER MDThis examination was interpreted and the report reviewed and electronically signed by: ANGY ALEXANDER MD on May 15 2017 10:51AM EST Normal [facility] Vital Signs Date Time Vital Sign Value Performing Clinician Abhi brandt 04-23-2022 12:04-0400 Hourly Rounding [facility] 04-23-2022 12:04-0400 Promise to Return Ahmad [facility] 04-23-2022 11:07-0400 [facility]ing [facility] 04-23-2022 11:07-0400 Promise to Return [facility] 04-23-2022 11:00-0400 Body temperature 97.34 [degF] [facility] 04-23-2022 11:00-0400 Diastolic blood pressure 85 mm[Hg] [facility] 04-23-2022 11:00-0400 Heart rate 71 /min [facility] 04-23-2022 11:00-0400 Mean blood pressure 98 mm[Hg] [facility] 04-23-2022 11:00-0400 Respiratory rate 16 /min [facility] 04-23-2022 11:00-0400 SaO2% (BldA) [Mass fraction] 98 % [facility] 04-23-2022 11:00-0400 Systolic blood pressure 125 mm[Hg] [facility] 04-23-2022 10:22-0400 Hourly Rounding [facility] 04-23-2022 10:22-0400 Promise to Return [facility] 04-23-2022 10:00-0400 Diastolic blood pressure 83 mm[Hg] [facility] 04-23-2022 10:00-0400 Heart rate 80 /min [facility] 04-23-2022 10:00-0400 Mean blood pressure 97 mm[Hg] [facility] 04-23-2022 10:00-0400 Respiratory rate 10 /min [facility] 04-23-2022 09:10-0400 Diastolic blood pressure 79 mm[Hg] [facility] 04-23-2022 09:10-0400 Heart rate 66 /min [facility] 04-23-2022 09:10-0400 Mean blood pressure 94 mm[Hg] [facility] 04-23-2022 09:10-0400 Respiratory rate 14 /min [facility] 04-23-2022 09:10-0400 SaO2% (BldA) [Mass fraction] 97 % [facility] 04-23-2022 09:10-0400 Systolic blood pressure 124 mm[Hg] [facility] 04-23-2022 08:00-0400 Body temperature 97.52 [degF] [facility] 04-23-2022 05:43-0400 Heart rate 65 /min [facility] 04-23-2022 04:45-0400 Heart rate 60 /min [facility] 04-23-2022 04:15-0400 Body temperature 98.78 [degF] [facility] 04-23-2022 04:15-0400 Heart rate 64 /min [facility] 04-22-2022 14:08-0400 Respiratory rate 20 /min [facility] 04-22-2022 13:59-0400 Respiratory rate 21 /min [facility] 04-22-2022 12:49-0400 Respiratory rate 18 /min [facility] 07-26-2019 13:49-0400 BMI (Body Mass Index) 22.65 kg/m2 Marta Wilkins [facility], [place] 07-26-2019 13:49-0400 Body Temperature 97.81 [degF] Whitartem Franky [facility], [place] 07-26-2019 13:49-0400 Body weight 75.75 kg Whitratem Wilkins [facility] 07-26-2019 13:49-0400 BP Diastolic 83 mm[Hg] Marta Wilkins [facility] 07-26-2019 13:49-0400 BP Systolic 111 mm[Hg] [facility] [place] 07-26-2019 13:49-0400 Height 182.9 cm [facility] [place] 07-26-2019 13:49-0400 Pulse (Heart Rate) 104 /min [facility], [place] 07-26-2019 13:49-0400 Pulse Oximetry 99 % [facility] [place] 07-26-2019 13:49-0400 Respiratory Rate 20 /min [place] Franky [facility], [place] Encounters Encounter Date Encounter Type Care Provider Facility Start: 10-12-2024 End: 10-12-2024 Subsequent hospital visit by physician Lady Turner DNP Work Phone: [facility] Comment on above: Alcohol-induced acut e pancreatitis, unspecified complication status; Gastroesophageal reflux disease without esophagitis Start: 09-27-2024 ambulatory Art Mckeon acility:[facility] Start: 05-13-2022 End: 08-11-2022 Patient encounter procedure LADY TURNER [facility] Start: 04-22-2022 End: 04-23-2022 Evaluation and management of inpatient Juan Banks [facility] Start: 12-03-2021 End: 12-03-[address] LIDA WATKINS Facility:[facility] Start: 06-14-2021 End: 06-14-[address] SAGRARIO ROWLAND Facility:[facility] Start: 07-26-2019 End: 07-26-2019 Emergency department patient visit LADY TURNER [facility] Start: 07-26-2019 End: 07-26-2019 Emergency department patient visit Marta Wilkins Work Phone: [facility] ED Comment on above: Closed fracture of d istal end of left fibula, unspecified fracture morphology, initial encounter (Primary Dx) Start: 04-13-2019 End: 04-14-2019 Patient encounter procedure LADY TURNER [facility] Start: 05-15-2017 End: 05-15-2017 [facility] Procedures Date Procedure Procedure Detail Performing Clinician Start: 10-12-2024 Comprehensive metabo lic panel Lady Burdickjanes DNP Work Phone: Start: 07-26-2019 CRUTCHES LADY NEWTON JUANVAUGHN Start: 07-26-2019 SPLINT APPLICATION SHRUTHI MARYW SOLANGEKAYLIN Start: 07-26-2019 Radiologic examinati on tibia & fibula 2 views LADY CLINGMAJanes Start: 07-26-2019 Radex ankle complete minimum 3 views LADY CLINKAYLIN Start: 07-26-2019 APPLY ICE TO AFFECTED AREA LADY NARVAEZKAYLIN Start: 07-26-2019 Radiologic examinati on tibia & fibula 2 views Marta Wilkins Work Phone: Start: 07-26-2019 Radex ankle complete minimum 3 views Marta Wilkins Work Phone: Start: 04-13-2019 Hepatic function panel LADY BURDICKJanes Start: 12-05-2017 Colonoscopy Lady rogers REDD Work Phone: Colon[facility] Incision and drainag e of left wrist wound [facility] Plan of Treatment Date Care Activity Detail Author Start: 06-10-2028 DTaP/Tdap/Td vaccine (2 - Td or Tdap) DTaP/Tdap/Td vaccine (2 - Td or Tdap) [facility] Start: 06-10-2028 DTaP/Tdap/Td vaccine (2 - Td) DTaP/Tdap/Td vaccine (2 - Td) [facility] [place] Start: 12-05-2027 Screening for malign ant neoplasm of colon [facility] Start: 10-11-2025 Depression Monitoring Depression Mon itoring [facility] Start: 06-27-2024 COVID-19 Vaccine () COVID-19 Vaccine () [facility] Start: 05-27-2024 Influenza vaccination Flu vaccine (# 1) [facility] Start: 2023 Shingles vaccine (1 of 2) Shingles vaccine (1 of 2) [facility] Start: 01-16-2022 Lipid panel Lipids [facility] Start: 01-16-2022 Lipid screen Lipid screen [place], [place] Start: 06-27-2019 Influenza vaccination Flu vaccine (# 1) [place], [place] Start: 2018 Screening for malign ant neoplasm of colon [facility] Start: 01-19-1992 Hepatitis B vaccine (1 of 3 - 19+ 3-dose series) Hepatitis B vaccine (1 of 3 - 19+ 3-dose series) [facility] Start: 1979 Pneumococcal 0-64 ye ars Vaccine (1 of 1 - PPSV23) Pneumococcal 0-64 years Vaccine (1 of 1 - PPSV23) [place] End: 07-26-2019 SPLINT APPLICATION SPLINT APPLICATION Procedures STAT One Time for 1 Occurrences starting 07/26/2019 until 07/26/2019 [place] Comment on above: One Time for 1 Occur rences starting 07/26/2019 until 07/26/2019 Immunizations Immunization Date Immunization Notes Care Provider Delisa dorsey 06-10-2018 tetanus toxoid, redu annamaria diphtheria toxoid, and acellular pertussis vaccine, adsorbed Marta Wilkins [facility] Payers Date Payer Category Payer Unknown [employer] xxxxxxxxxxxx 2018-Present [address] [place] [address] xxxxxxxxxxxx [id number] 2018 Unknown [id number] 2016 Private Health Insurance [id number] 1973 Unknown [id number] 1973 Unknown [id number] 1973 Unknown [id number] 1973 Unknown [id number] 1959 Medicaid [id number] 1961 Self-pay Unknown [id number] Social History Date Type Detail Facility Start: 07-26-2019 End: 10-12-2024 Tobacco smoking status NHIS Former smoker [place] Start: 10-27-1988 End: 10-27-2006 History of tobacco use Current smoker [place] Start: 07-26-2019 End: 10-12-2024 Alcohol intake No [place] Start: 1975 Sex Assigned At Not on file [place], [place] Start: 10-27-1988 End: 10-27-2006 History of tobacco use Cigarette Smoker [facility] Start: 04-16-2023 End: 10-12-2024 Cigarettes smoked current (pack per day) - Reported 0.5 [facility] History of tobacco use Passive smoker [facility] Start: 10-12-2024 Tobacco use and exposure Smoke less tobacco non-user [facility] Start: 10-12-2024 Alcoholic beverage intake Ex-drinker (finding) [facility] How hard is it for y ou to pay for the very basics like food, housing, medical care, and heating Not hard at all [facility] (I/We) worried amos er (my/our) food would run out before (I/we) got money to buy more. Never true [facility] At any time in the p ast 12 months, were you homeless or living in residential [including now]? No [facility] Start: 10-12-2024 Tobacco Comment Was off and on user during that time frame [facility] Start: 10-12-2024 Alcohol Comment Was doing good but still relapse now and then [facility] Functional Status Date Assessment Result Facility 04-22-2022 Functional Status N/A [facility] 04-22-2022 Functional Status [facility] 04-22-2022 Functional Status [facility] Evaluation + Plan note 04-23-2022 Note Date & Type Note Facility 04-23-2022 Evaluation + Plan note Extrac yu from: Title:Discharge Note Author:Mike BERNABE MD e:04/23/22 Stable Discharge To, Anticipated II - Home with responsible caregiver Discharge Diet(s): Regular (04/23/22 09:45:00) Prescriptions amitriptyline 10 mg Tab, 10 mg= 1 tab(s), Oral, Once a day (at bedtime), 3 refills, Still taking, not as prescribed: Pt only takes this when he cant sleep. ~ 1 time a week rifaximin 550 mg oral tablet, 550 mg= 1 tab(s), Oral, TID, 1 refills, Not taking Home alprazolam, 1 mg, Oral, TID, PRN hydrOXYzine, 50 mg, Oral, BID Levsin, 0.125 mg, Oral, BID, PRN, Not taking omeprazole, 40 mg, Oral, Daily, Still taking, not as prescribed: Only takes when he feels he is getting heart burn . tamsulosin, 0.4 mg, Oral, Daily, Not taking With When Contact Information LADY TURNER In 0 days [address] [place] [id number] [facility] (1) Additional Instructions: Alcohol Use Disorder Alcohol Use Disorder Alcohol Abuse and Nutrition Alcohol Abuse and Nutrition Alcohol Withdrawal Syndrome Alcohol Withdrawal Syndrome Discharge time more than 30 Patient had quicker recovery and he was discharged home in stable condition Extracted from: Title:Admission H & P Author:Mike BERNABE MD te:04/22/22 1. Alcohol withdrawal (F10.2 39: Alcohol dependence with withdrawal, unspecified) Inpatient admission Patient will require more than 2 nights in the hospital Cardiac telemetry Alcohol withdrawal precaution Normal saline at 100 cc/h Thiamine 100 mg daily Folic acid daily Multivitamin daily CIWA protocol with volume 2. Alcohol abuse (F10.10: Alcohol abuse, uncomplicated) Normal saline at 100 cc/h Thiamine 100 mg daily Folic acid daily Multivitamin daily 3. Dehydration (E86.0: Dehydration) Normal saline at 100 cc/h BMP daily Mag level in the morning 4. DVT prophylaxis (Z29.9: Encounter for prophylactic measures, unspecified) Lovenox daily Extracted from: Title:ED Note Author:Erickson Benitez DO Date:03/28 05/17 Alcohol abuse with withdrawa l (F10.139: Alcohol abuse with withdrawal, unspecified) Nausea (R11.0: Nausea) Orders: diazepam, 5 mg = 1 mL, Injection, IV Push, Once, Stop date 04/22/22 13:12:00 EDT, STAT, Start date 04/22/22 13:12:00 EDT, 04/22/22 13:12:00 EDT Sodium Chloride 0.9% intravenous solution, 1,000 mL, Soln-IV, IV, Once, Stop date 04/22/22 13:12:00 EDT, STAT, Start date 04/22/22 13:12:00 EDT, mL/hr, Infuse over 61, minute(s) Automated Diff Basic Metabolic Panel CBC w/ Auto Diff Communication Order Physician to Nursing Continuous Pulse Oximetry Drug Screen Urine ECG 12 Lead Adult ED Cardiac Monitoring ED Physician consult Hospitalist for continued care eGFR Ethanol Level Extra Blue Tube Extra SST Tube Hepatic Function Panel Lipase Level [facility] Discharge summary note 04-23-2022 Note Date & Type Note Facility 04-23-2022 Note Admission and Discha rge Information Admit Date/Time:04/22/2022 16:10 Admitting Physician - Darren PALACIOS, Juan Admitting Diagnoses: Discharge Diagnoses 1. Alcohol withdrawal, 04/22/2022 2. Alcohol abuse, 04/22/2022 3. Dehydration, 04/22/2022 4. DVT prophylaxis, 04/22/2022 Alcohol withdrawal, 04/22/2022 Procedure History Colonoscopy, Endoscopy, Incision and drainage of left wrist wound. Hospital Course This is 47-year-old white male past medical history of alcohol abuse, anxiety, recurrent pancreatitis, and depression who presented to emergency room with alcohol withdrawal symptoms. Patient been drinking for a long time a beer more than 12 beers a day. He stopped drinking last night. He presented to the emergency room because he cannot take it anymore has been shaking, having nausea, and having diarrhea since last night. Associated with palpitations. Denies any chest pain or shortness of breath. No fever or chills. Patient has been on outpatient [facility] multiple times He was admitted to the hospital ICU. He was started on CIWA protocol with Valium. He was given folic acid thiamine and multivitamins. His symptoms improved. Social service was consulted. He is less shaky and less tachycardia. He was discharged home in stable condition. Services Consulted Consult to Ice Scraper (Ice Scraper Consult) - Ordered -- 04/22/22 16:17:00 EDT, alcohol abuse, Substance Abuse Physical Exam Vitals & Measurements T: 37.1 ?C(Oral) TMIN: 36.3 ?C(Oral) TMAX: 37.1 ?C(Oral) HR: 66(Monitored) RR: 14 BP: 124/79 SpO2: 97% WT: 74 kg General: alert, no acute distress Skin: warm, dry Head: no trauma, normocephalic Neck: Trachea midline, no adenopathy, no tenderness Eye: normal conjunctiva, sclera clear ENMT: TM's clear, oral mucosa moist, no pharyngeal erythema or exudate Cardiovascular: regular rate and rhythm, normal peripheral perfusion Respiratory: Lungs CTA, respirations non labored Chest wall: no deformity. Gastrointestinal: soft, non distended, no tenderness, no guarding. Back: No tenderness, Normal ROM, Normal alignment. Extremities: no deformity, no trauma Neurological: oriented x 4, LOC appropriate for age, CN II-XII intact, motor strength equal & normal bilaterally, sensation equal & normal bilaterally, speech normal Psychiatric: cooperative, affect appropriate for age, normal judgement, normal psychiatric thoughts. Laboratory Results Automated Diff (04/22/2022) Neutro Auto - 81.2 % Lymph Auto - 13.0 % [place] Auto - 5.5 % Eos Auto - 0.0 % Basophil Auto - 0.3 % Neutro Absolute - 6.3 E9/L Lymph Absolute - 1.0 E9/L [place] Absolute - 0.4 E9/L Eos Absolute - 0.0 E9/L Basophil Absolute - 0.0 E9/L BMP (04/23/2022) Glucose Lvl - 93 mg/dL BUN - 18 mg/dL Creatinine - 0.8 mg/dL BUN/Creat Ratio - 22 Sodium Lvl - 134 mmol/L Potassium Lvl - 3.7 mmol/L Chloride - 102 mmol/L CO2 - 25 mmol/L AGAP - 11 mEq/L Calcium Lvl - 8.4 mg/dL CBC w/ Auto Diff (04/22/2022) WBC - 7.8 E9/L RBC - 5.3 E12/L Hgb - 16.8 gm/dL Hct - 48.3 % MCV - 91.3 fL MCH - 31.9 pg MCHC - 34.9 gm/dL RDW - 15.5 % Platelet - 304.0 E9/L MPV - 6.5 fL Drug Screen Urine (04/22/2022) U Amph Scr - Negative U Sheri Scr - Negative U Benzodia Scr - Positive U Cannab Scr - Negative U Cocaine Scr - Negative U Opiate Scr - NEG1 U PCP Scr - Negative eGFR (04/23/2022) eGFR - >60 mL/min/1.73 m2 eGFR AA - >60 mL/min/1.73 m2 ETOH Level (04/22/2022) Ethanol Lvl - 121 mg/dL Hepatic Function Panel (04/22/2022) Alk Phos - 148 Int._Unit/L ALT - 20 Int._Unit/L AST - 23 Int._Unit/L Total Protein - 7.7 gm/dL Albumin Lvl - 4.2 gm/dL Globulin - 3.5 gm/dL A/G Ratio - 1.2 Bili Total - 1.3 mg/dL Bili Direct - 0.2 mg/dL Bili Indirect - 1.1 mg/dL Lipase Level (04/22/2022) Lipase Lvl - 61 unit/L Magnesium Level (04/23/2022) Magnesium - 1.8 mg/dL Tests Performed Automated Diff BMP CBC w/ Auto Diff Drug Screen Urine eGFR ETOH Level Hepatic Function Panel Lipase Level Magnesium Level Discharge Plan Patient Discharge Condition Stable Discharge Disposition Discharge To, Anticipated II - Home with responsible caregiver Discharge Diet Discharge Diet(s): Regular (04/23/22 09:45:00) Discharge Medication List Prescriptions amitriptyline 10 mg Tab, 10 mg= 1 tab(s), Oral, Once a day (at bedtime), 3 refills, Still taking, not as prescribed: Pt only takes this when he cant sleep. 1 time a week rifaximin 550 mg oral tablet, 550 mg= 1 tab(s), Oral, TID, 1 refills, Not taking Home alprazolam, 1 mg, Oral, TID, PRN hydrOXYzine, 50 mg, Oral, BID Levsin, 0.125 mg, Oral, BID, PRN, Not taking omeprazole, 40 mg, Oral, Daily, Still taking, not as prescribed: Only takes when he feels he is getting heart burn . tamsulosin, 0.4 mg, Oral, Daily, Not taking Follow-up With When Contact Information LADY TURNER In 0 days [address] [place] [address]- [place] (more content not included)... [facility] Comment on above: Result Comment: Elec tronically Signed By: JAIMEE PALACIOS, Mike\.br\Date and Time Signed: 04/23/22 09:49 EDT Hospital Discharge instructions 04-23-2022 Note Date & Type Note Facility 04-23-2022 Hospital Discharg e instructions Patient Education 04/23/2022 09:46:44 Alcohol Use Disorder Alcohol Use Disorder Alcohol use disorder is when your drinking disrupts your daily life. When you have this condition, you drink too much alcohol and you cannot control your drinking. Alcohol use disorder can cause serious problems with your physical health. It can affect your brain, heart, liver, pancreas, immune system, stomach, and intestines. Alcohol use disorder can increase your risk for certain cancers and cause problems with your mental health, such as depression, anxiety, psychosis, delirium, and dementia. People with this disorder risk hurting themselves and others. What are the causes? This condition is caused by drinking too much alcohol over time. It is not caused by drinking too much alcohol only one or two times. Some people with this condition drink alcohol to cope with or escape from negative life events. Others drink to relieve pain or symptoms of mental illness. What increases the risk? You are more likely to develop this condition if: You have a family history of alcohol use disorder. Your culture encourages drinking to the point of intoxication, or makes alcohol easy to get. You had a mood or conduct disorder in childhood. You have been a victim of abuse. You are an adolescent and: ?You have poor grades or difficulties in school. ?Your caregivers do not talk to you about saying no to alcohol, or supervise your activities. ?You are impulsive or you have trouble with self-control. What are the signs or symptoms? Symptoms of this condition include: Drinking more than you want to. Drinking for longer than you want to. Trying several times to drink less or to control your drinking. Spending a lot of time getting alcohol, drinking, or recovering from drinking. Craving alcohol. Having problems at work, at school, or at home due to drinking. Having problems in relationships due to drinking. Drinking when it is dangerous to drink, such as before driving a car. Continuing to drink even though you know you might have a physical or mental problem related to drinking. Needing more and more alcohol to get the same effect you want from the alcohol (building up tolerance). Having symptoms of withdrawal when you stop drinking. Symptoms of withdrawal include: ?Fatigue. ?Nightmares. ?Trouble sleeping. ?Depression. ?Anxiety. ?Fever. ?Seizures. ?Severe confusion. ?Feeling or seeing things that are not there (hallucinations). ?Tremors. ?Rapid heart rate. ?Rapid breathing. ?High blood pressure. Drinking to avoid symptoms of withdrawal. How is this diagnosed? This condition is diagnosed with an assessment. Your health care provider may start the assessment by asking three or four questions about your drinking. Your health care provider may perform a physical exam or do lab tests to see if you have physical problems resulting from alcohol use. She or he may refer you to a mental health professional for evaluation. How is this treated? Some people with alcohol use disorder are able to reduce their alcohol use to low-risk levels. Others need to completely quit drinking alcohol. When necessary, mental health professionals with specialized training in substance use treatment can help. Your health care provider can help you decide how severe your alcohol use disorder is and what type of treatment you need. The following forms of treatment are available: Detoxification. Detoxification involves quitting drinking and using prescription medicines within the first week to help lessen withdrawal symptoms. This treatment is important for people who have had withdrawal symptoms before and for heavy drinkers who are likely to have withdrawal symptoms. Alcohol withdrawal can be dangerous, and in severe cases, it can cause . Detoxification may be provided in a home, community, or primary care setting, or in a hospital or substance use treatment facility. Counseling. This treatment is also called talk therapy. It is provided by substance use treatment counselors. A counselor can address the reasons you use alcohol and suggest ways to keep you from drinking again or to prevent problem drinking. The goals of talk therapy are to: ?Find healthy activities and ways for you to cope with stress. ?Identify and avoid the things that trigger your alcohol use. ?Help you learn how to handle cravings. Medicines. Medicines can help treat alcohol use disorder by: ?Decreasing alcohol cravings. ?Decreasing the positive feeling you have when you drink alcohol. ?Causing an uncomfortable physical reaction when you drink alcohol (aversion therapy). Support groups. Support groups are led by people who have quit drinking. They provide emotional support, advice, and guidance. These forms of treatment are often combined. Some people with this condition benefit from a combination of treatments provided by specialized substance use treatment centers. Follow these instructions at home: Take alsb-snq-[id number] and prescription medicines only as told by your health care provider. Check with your health care provider before starting any new medicines. Ask friends and family members not to offer you alcohol. Avoid situations where alcohol is served, including gatherings where others are drinking alcohol. Create a plan for what to do when you are tempted to use alcohol. Find hobbies or activities that you enjoy that do not include alcohol. Keep all follow-up visits as told by your health care provider. This is important. How is this prevented? If you drink, limit alcohol intake to no more than 1 drink a day for non women and 2 drinks a day for men. One drink equals 12 oz of beer, 5 oz of wine, or 1 oz of hard liquor. If you have a mental health condition, get treatment and support. Do not give alcohol to adolescents. If you are an adolescent: ?Do not drink alcohol. ?Do not be afraid to say no if someone offers you alcohol. Speak up about why you do not want to drink. You can be a positive role model for your friends and set a good example for those around you by not drinking alcohol. ?If your friends drink, spend time with others who do not drink alcohol. Make new friends who do not use alcohol. ?Find healthy ways to manage stress and emotions, such as meditation or deep breathing, exercise, spending time in nature, listening to music, or talking with a trusted friend or family member. Contact a health care provider if: You are not able to take your medicines as told. Your symptoms get worse. You return to drinking alcohol (relapse) and your symptoms get worse. Get help right away if: You have thoughts about hurting yourself or others. If you ever feel like you may hurt yourself or others, or have thoughts about taking your own life, get help right away. You can go to your nearest emergency department or call: Your local emergency services (911 in the [place] A suicide crisis helpline, such as the National Suicide Prevention Lifeline at . This is open 24 hours a day. Summary Alcohol use disorder is when your drinking disrupts your daily life. When you have this condition, you drink too much alcohol and you cannot control your drinking. Treatment may include detoxification, counseling, medicine, and support groups. Ask friends and family members not to offer you alcohol. Avoid situations where alcohol is served. Get help right away if you have thoughts about hurting yourself or others. This information is not intended to replace advice given to you by your health care provider. Make sure you discuss any questions you have with your health care provider. Document Released: 11/20/2005 Document Revised: 09/25/2018 Document Reviewed: 07/10/2017 [employer] Patient Education 2020 [employer]. 04/23/2022 09:46:44 Alcohol Use Disorder Alcohol Use Disorder Alcohol use disorder is when your drinking disrupts your daily life. When you have this condition, you drink too much alcohol and you cannot control your drinking. Alcohol use disorder can cause serious problems with your physical health. It can affect your brain, heart, liver, pancreas, immune system, stomach, and intestines. Alcohol use disorder can increase your risk for certain cancers and cause problems with your mental health, such as depression, anxiety, psychosis, delirium, and dementia. People with this disorder risk hurting themselves and others. What are the causes? This condition is caused by drinking too much alcohol over time. It is not caused by drinking too much alcohol only one or two times. Some people with this condition drink alcohol to cope with or escape from negative life events. Others drink to relieve pain or symptoms of mental illness. What increases the risk? You are more likely to develop this condition if: You have a family history of alcohol use disorder. Your culture encourages drinking to the point of intoxication, or makes alcohol easy to get. You had a mood or conduct disorder in childhood. You have been a victim of abuse. You are an adolescent and: ?You have poor grades or difficulties in school. ?Your caregivers do not talk to you about saying no to alcohol, or supervise your activities. ?You are impulsive or you have trouble with self-control. What are the signs or symptoms? Symptoms of this condition include: Drinking more than you want to. Drinking for longer than you want to. Trying several times to drink less or to control your drinking. Spending a lot of time getting alcohol, drinking, or recovering from drinking. Craving alcohol. Having problems at work, at school, or at home due to drinking. Having problems in relationships due to drinking. Drinking when it is dangerous to drink, such as before driving a car. Continuing to drink even though you know you might have a physical or mental problem related to drinking. Needing more and more alcohol to get the same effect you want from the alcohol (building up tolerance). Having symptoms of withdrawal when you stop drinking. Symptoms of withdrawal include: ?Fatigue. ?Nightmares. ?Trouble sleeping. ?Depression. ?Anxiety. ?Fever. ?Seizures. ?Severe confusion. ?Feeling or seeing things that are not there (hallucinations). ?Tremors. ?Rapid heart rate. ?Rapid breathing. ?High blood pressure. Drinking to avoid symptoms of withdrawal. How is this diagnosed? This condition is diagnosed with an assessment. Your health care provider may start the assessment by asking three or four questions about your drinking. Your health care provider may perform a physical exam or do lab tests to see if you have physical problems resulting from alcohol use. She or he may refer you to a mental health professional for evaluation. How is this treated? Some people with alcohol use disorder are able to reduce their alcohol use to low-risk levels. Others need to completely quit drinking alcohol. When necessary, mental health professionals with specialized training in substance use treatment can help. Your health care provider can help you decide how severe your alcohol use disorder is and what type of treatment you need. The following forms of treatment are available: Detoxification. Detoxification involves quitting drinking and using prescription medicines within the first week to help lessen withdrawal symptoms. This treatment is important for people who have had withdrawal symptoms before and for heavy drinkers who are likely to have withdrawal symptoms. Alcohol withdrawal can be dangerous, and in severe cases, it can cause . Detoxification may be provided in a home, community, or primary care setting, or in a hospital or substance use treatment facility. Counseling. This treatment is also called talk therapy. It is provided by substance use treatment counselors. A counselor can address the reasons you use alcohol and suggest ways to keep you from drinking again or to prevent problem drinking. The goals of talk therapy are to: ?Find healthy activities and ways for you to cope with stress. ?Identify and avoid the things that trigger your alcohol use. ?Help you learn how to handle cravings. Medicines. Medicines can help treat alcohol use disorder by: ?Decreasing alcohol cravings. ?Decreasing the positive feeling you have when you drink alcohol. ?Causing an uncomfortable physical reaction when you drink alcohol (aversion therapy). Support groups. Support groups are led by people who have quit drinking. They provide emotional support, advice, and guidance. These forms of treatment are often combined. Some people with this condition benefit from a combination of treatments provided by specialized substance use treatment centers. Follow these instructions at home: Take ggxb-xub-zczknto and prescription medicines only as told by your health care provider. Check with your health care provider before starting any new medicines. Ask friends and family members not to offer you alcohol. Avoid situations where alcohol is served, including gatherings where others are drinking alcohol. Create a plan for what to do when you are tempted to use alcohol. Find hobbies or activities that you enjoy that do not include alcohol. Keep all follow-up visits as told by your health care provider. This is important. How is this prevented? If you drink, limit alcohol intake to no more than 1 drink a day for non women and 2 drinks a day for men. One drink equals 12 oz of beer, 5 oz of wine, or 1 oz of hard liquor. If you have a mental health condition, get treatment and support. Do not give alcohol to adolescents. If you are an adolescent: ?Do not drink alcohol. ?Do not be afraid to say no if someone offers you alcohol. Speak up about why you do not want to drink. You can be a positive role model for your friends and set a good example for those around you by not drinking alcohol. ?If your friends drink, spend time with others who do not drink alcohol. Make new friends who do not use alcohol. ?Find healthy ways to manage stress and emotions, such as meditation or deep breathing, exercise, spending time in nature, listening to music, or talking with a trusted friend or family member. Contact a health care provider if: You are not able to take your medicines as told. Your symptoms get worse. You return to drinking alcohol (relapse) and your symptoms get worse. Get help right away if: You have thoughts about hurting yourself or others. If you ever feel like you may hurt yourself or others, or have thoughts about taking your own life, get help right away. You can go to your nearest emergency department or call: Your local emergency services (911 in the [place] A suicide crisis helpline, such as the National Suicide Prevention Lifeline at . This is open 24 hours a day. Summary Alcohol use disorder is when your drinking disrupts your daily life. When you have this condition, you drink too much alcohol and you cannot control your drinking. Treatment may include detoxification, counseling, medicine, and support groups. Ask friends and family members not to offer you alcohol. Avoid situations where alcohol is served. Get help right away if you have thoughts about hurting yourself or others. This information is not intended to replace advice given to you by your health care provider. Make sure you discuss any questions you have with your health care provider. Document Released: 11/20/2005 Document Revised: 09/25/2018 Document Reviewed: 07/10/2017 [employer] Patient Education 2020 [employer]. 04/23/2022 09:46:41 Alcohol Abuse and Nutrition Alcohol Abuse and Nutrition Alcohol abuse is any pattern of alcohol consumption that harms your health, relationships, or work. Alcohol abuse can cause poor nutrition (malnutrition or malnourishment) and a lack of nutrients (nutrient deficiencies), which can lead to more complications. Alcohol abuse brings malnutrition and nutrient deficiencies in two ways: It causes your liver to work abnormally. This affects how your body divides (breaks down) and absorbs nutrients from food. It causes you to eat poorly. Many people who abuse alcohol do not eat enough carbohydrates, protein, fat, vitamins, and minerals. Nutrients that are commonly lacking (deficient) in people who abuse alcohol include: Vitamins. ?Vitamin A. This is needed for your vision, metabolism, and ability to fight off infections (immunity). ?B vitamins. These include folate, thiamine, and niacin. These are needed for new cell growth. ?Vitamin C. This plays an important role in wound healing, immunity, and helping your body to absorb iron. ?Vitamin D. This is necessary for your body to absorb and use calcium. It is produced by your liver, but you can also get it from food and from sun exposure. Minerals. ?Calcium. This is needed for healthy bones as well as heart and blood vessel (cardiovascular) function. ?Iron. This is important for blood, muscle, and nervous system functioning. ?Magnesium. This plays an important role in muscle and nerve function, and it helps to control blood sugar and blood pressure. ?Zinc. This is important for the normal functioning of your nervous system and digestive system (gastrointestinal tract). If you think that you have an alcohol dependency problem, or if it is hard to stop drinking because you feel sick or different when you do not use alcohol, talk with your health care provider or another health professional about where to get help. Nutrition is an essential factor in therapy for alcohol abuse. Your health care provider or diet and clinical nutritionist (dietitian) will work with you to design a plan that can help to restore nutrients to your body and prevent the risk of complications. What is my plan? Your dietitian may develop a specific eating plan that is based on your condition and any other problems that you have. An eating plan will commonly include: A balanced diet. ?Grains: 6 8 oz (170 227 g) a day. Examples of 1 oz of whole grains include 1 cup of whole-wheat cereal, cup of brown rice, or 1 slice of whole-wheat bread. ?Vegetables: 2 3 cups a day. Examples of 1 cup of vegetables include 2 medium carrots, 1 large tomato, or 2 stalks of celery. ?Fruits: 1 2 cups a day. Examples of 1 cup of fruit include 1 large banana, 1 small apple, 8 large strawberries, or 1 large orange. ?Meat and other protein: 5 6 oz (142 170 g) a day. ?A cut of meat or fish that is the size of a deck of cards is about 3 4 oz. ?Foods that provide 1 oz of protein include 1 egg, cup of nuts or seeds, or 1 tablespoon (16 g) of peanut butter. ?Dairy: 2 3 cups a day. Examples of 1 cup of dairy include 8 oz (230 mL) of milk, 8 oz (230 g) of yogurt, or 1 oz (44 g) of natural cheese. Vitamin and mineral supplements. What are tips for following this plan? Eat frequent meals and snacks. Try to eat 5 6 small meals each day. Take vitamin or mineral supplements as recommended by your dietitian. If you are malnourished or if your dietitian recommends it: ?You may follow a high-protein, high-calorie diet. This may include: ?2,000 3,000 calories (kilocalories) a day. ?70 100 g (grams) of protein a day. ?You may be directed to follow a diet that includes a complete nutritional supplement beverage. This can help to restore calories, protein, and vitamins to your body. Depending on your condition, you may be advised to consume this beverage instead of your meals or in addition to them. Certain medicines may cause changes in your appetite, taste, and weight. Work with your health care provider and dietitian to make any changes to your medicines and eating plan. If you are unable to take in enough food and calories by mouth, your health care provider may recommend a feeding tube. This tube delivers nutritional supplements directly to your stomach. Recommended foods Eat foods that are high in molecules that prevent oxygen from reacting with your food (antioxidants). These foods include grapes, berries, nuts, green tea, and dark green or orange vegetables. Eating these can help to prevent some of the stress that is placed on your liver by consuming alcohol. Eat a variety of fresh fruits and vegetables each day. This will help you to get fiber and vitamins in your diet. Drink plenty of water and other clear fluids, such as apple juice and broth. Try to drink at least 48 64 oz (1.5 2 L) of water a day. Include foods fortified with vitamins and minerals in your diet. Commonly fortified foods include milk, orange juice, cereal, and bread. Eat a variety of foods that are high in omega-3 and omega-6 fatty acids. These include fish, nuts and seeds, and soybeans. These foods may help your liver to recover and may also stabilize your mood. If you are a vegetarian: ?Eat a variety of protein-rich foods. ?Pair whole grains with plant-based proteins at meals and snack time. For example, eat rice with beans, put peanut butter on whole-grain toast, or eat oatmeal with sunflower seeds. The items listed above may not be a complete list of foods and beverages you can eat. Contact a dietitian for more information. Foods to avoid Avoid foods and drinks that are high in fat and sugar. Sugary drinks, salty snacks, and candy contain empty calories. This means that they lack important nutrients such as protein, fiber, and vitamins. Avoid alcohol. This is the best way to avoid malnutrition due to alcohol abuse. If you must drink, drink measured amounts. Measured drinking means limiting your intake to no more than 1 drink a day for non women and 2 drinks a day for men. One drink equals 12 oz (355 mL) of beer, 5 oz (148 mL) of wine, or 1 oz (44 mL) of hard liquor. Limit your intake of caffeine. Replace drinks like coffee and black tea with decaffeinated coffee and decaffeinated herbal tea. The items listed above may not be a complete list of foods and beverages you should avoid. Contact a dietitian for more information. Summary Alcohol abuse can cause poor nutrition (malnutrition or malnourishment) and a lack of nutrients (nutrient deficiencies), which can lead to more health problems. Common nutrient deficiencies include vitamin deficiencies (A, B, C, and D) and mineral deficiencies (calcium, iron, magnesium, and zinc). Nutrition is an essential factor in therapy for alcohol abuse. Your health care provider and dietitian can help you to develop a specific eating plan that includes a balanced diet plus vitamin and mineral supplements. This information is not intended to replace advice given to you by your health care provider. Make sure you discuss any questions you have with your health care provider. Document Released: 08/07/2006 Document Revised: 02/01/2020 Document Reviewed: 06/30/2018 [employer] Patient Education 2020 [employer]. 04/23/2022 09:46:41 Alcohol Abuse and Nutrition Alcohol Abuse and Nutrition Alcohol abuse is any pattern of alcohol consumption that harms your health, relationships, or work. Alcohol abuse can cause poor nutrition (malnutrition or malnourishment) and a lack of nutrients (nutrient deficiencies), which can lead to more complications. Alcohol abuse brings malnutrition and nutrient deficiencies in two ways: It causes your liver to work abnormally. This affects how your body divides (breaks down) and absorbs nutrients from food. It causes you to eat poorly. Many people who abuse alcohol do not eat enough carbohydrates, protein, fat, vitamins, and minerals. Nutrients that are commonly lacking (deficient) in people who abuse alcohol include: Vitamins. ?Vitamin A. This is needed for your vision, metabolism, and ability to fight off infections (immunity). ?B vitamins. These include folate, thiamine, and niacin. These are needed for new cell growth. ?Vitamin C. This plays an important role in wound healing, immunity, and helping your body to absorb iron. ?Vitamin D. This is necessary for your body to absorb and use calcium. It is produced by your liver, but you can also get it from food and from sun exposure. Minerals. ?Calcium. This is needed for healthy bones as well as heart and blood vessel (cardiovascular) function. ?Iron. This is important for blood, muscle, and nervous system functioning. ?Magnesium. This plays an important role in muscle and nerve function, and it helps to control blood sugar and blood pressure. ?Zinc. This is important for the normal functioning of your nervous system and digestive system (gastrointestinal tract). If you think that you have an alcohol dependency problem, or if it is hard to stop drinking because you feel sick or different when you do not use alcohol, talk with your health care provider or another health professional about where to get help. Nutrition is an essential factor in therapy for alcohol abuse. Your health care provider or diet and clinical nutritionist (dietitian) will work with you to design a plan that can help to restore nutrients to your body and prevent the risk of complications. What is my plan? Your dietitian may develop a specific eating plan that is based on your condition and any other problems that you have. An eating plan will commonly include: A balanced diet. ?Grains: 6 8 oz (170 227 g) a day. Examples of 1 oz of whole grains include 1 cup of whole-wheat cereal, cup of brown rice, or 1 slice of whole-wheat bread. ?Vegetables: 2 3 cups a day. Examples of 1 cup of vegetables include 2 medium carrots, 1 large tomato, or 2 stalks of celery. ?Fruits: 1 2 cups a day. Examples of 1 cup of fruit include 1 large banana, 1 small apple, 8 large strawberries, or 1 large orange. ?Meat and other protein: 5 6 oz (142 170 g) a day. ?A cut of meat or fish that is the size of a deck of cards is about 3 4 oz. ?Foods that provide 1 oz of protein include 1 egg, cup of nuts or seeds, or 1 tablespoon (16 g) of peanut butter. ?Dairy: 2 3 cups a day. Examples of 1 cup of dairy include 8 oz (230 mL) of milk, 8 oz (230 g) of yogurt, or 1 oz (44 g) of natural cheese. Vitamin and mineral supplements. What are tips for following this plan? Eat frequent meals and snacks. Try to eat 5 6 small meals each day. Take vitamin or mineral supplements as recommended by your dietitian. If you are malnourished or if your dietitian recommends it: ?You may follow a high-protein, high-calorie diet. This may include: ?2,000 3,000 calories (kilocalories) a day. ?70 100 g (grams) of protein a day. ?You may be directed to follow a diet that includes a complete nutritional supplement beverage. This can help to restore calories, protein, and vitamins to your body. Depending on your condition, you may be advised to consume this beverage instead of your meals or in addition to them. Certain medicines may cause changes in your appetite, taste, and weight. Work with your health care provider and dietitian to make any changes to your medicines and eating plan. If you are unable to take in enough food and calories by mouth, your health care provider may recommend a feeding tube. This tube delivers nutritional supplements directly to your stomach. Recommended foods Eat foods that are high in molecules that prevent oxygen from reacting with your food (antioxidants). These foods include grapes, berries, nuts, green tea, and dark green or orange vegetables. Eating these can help to prevent some of the stress that is placed on your liver by consuming alcohol. Eat a variety of fresh fruits and vegetables each day. This will help you to get fiber and vitamins in your diet. Drink plenty of water and other clear fluids, such as apple juice and broth. Try to drink at least 48 64 oz (1.5 2 L) of water a day. Include foods fortified with vitamins and minerals in your diet. Commonly fortified foods include milk, orange juice, cereal, and bread. Eat a variety of foods that are high in omega-3 and omega-6 fatty acids. These include fish, nuts and seeds, and soybeans. These foods may help your liver to recover and may also stabilize your mood. If you are a vegetarian: ?Eat a variety of protein-rich foods. ?Pair whole grains with plant-based proteins at meals and snack time. For example, eat rice with beans, put peanut butter on whole-grain toast, or eat oatmeal with sunflower seeds. The items listed above may not be a complete list of foods and beverages you can eat. Contact a dietitian for more information. Foods to avoid Avoid foods and drinks that are high in fat and sugar. Sugary drinks, salty snacks, and candy contain empty calories. This means that they lack important nutrients such as protein, fiber, and vitamins. Avoid alcohol. This is the best way to avoid malnutrition due to alcohol abuse. If you must drink, drink measured amounts. Measured drinking means limiting your intake to no more than 1 drink a day for non women and 2 drinks a day for men. One drink equals 12 oz (355 mL) of beer, 5 oz (148 mL) of wine, or 1 oz (44 mL) of hard liquor. Limit your intake of caffeine. Replace drinks like coffee and black tea with decaffeinated coffee and decaffeinated herbal tea. The items listed above may not be a complete list of foods and beverages you should avoid. Contact a dietitian for more information. Summary Alcohol abuse can cause poor nutrition (malnutrition or malnourishment) and a lack of nutrients (nutrient deficiencies), which can lead to more health problems. Common nutrient deficiencies include vitamin deficiencies (A, B, C, and D) and mineral deficiencies (calcium, iron, magnesium, and zinc). Nutrition is an essential factor in therapy for alcohol abuse. Your health care provider and dietitian can help you to develop a specific eating plan that includes a balanced diet plus vitamin and mineral supplements. This information is not intended to replace advice given to you by your health care provider. Make sure you discuss any questions you have with your health care provider. Document Released: 08/07/2006 Document Revised: 02/01/2020 Document Reviewed: 06/30/2018 [employer] Patient Education 2020 [employer]. 04/23/2022 09:46:38 Alcohol Withdrawal Syndrome Alcohol Withdrawal Syndrome Alcohol withdrawal syndrome is a group of symptoms that can develop when a person who drinks heavily and regularly stops drinking or drinks less. Alcohol withdrawal syndrome can be mild or severe, and it may even be life-threatening. Alcohol withdrawal syndrome usually affects people who have alcohol use disorder, which may also be called alcoholism. Alcohol use disorder is when a person is unable to control his or her alcohol use, and drinking too much or too often causes problems at home, at work, or in relationships. What are the causes? Drinking heavily and drinking on a regular basis cause changes in brain chemistry. Over time, the body becomes dependent on alcohol. When alcohol use stops, the chemistry system in the brain becomes unbalanced and causes the symptoms of alcohol withdrawal. What increases the risk? Alcohol withdrawal syndrome is more likely to occur in people who drink more than the recommended limit of alcohol (2 drinks a day for men or 1 drink a day for non- women). It is also more likely to affect heavy drinkers who have been using alcohol for long periods of time. The more a person drinks and the longer he or she drinks, the greater the risk of alcohol withdrawal syndrome. Severe withdrawal is more likely to develop in someone who: Had severe alcohol withdrawal in the past. Had a seizure during a previous episode of alcohol withdrawal. Is elderly. Uses other drugs. Has a long-term (chronic) medical problem, such as heart, lung, or liver disease. Has depression. Does not get enough nutrients from his or her diet (malnutrition). What are the signs or symptoms? Symptoms of this condition can be mild to moderate, or they can be severe. Symptoms may develop a few hours (or up to a day) after a person changes his or her drinking patterns. During the 48 hours after he or she has stopped drinking, the following symptoms may go away or get better: Uncontrollable shaking (tremor). Sweating. Headache. Anxiety. Inability to relax (agitation). Trouble sleeping (insomnia). Irregular heartbeats (palpitations). Alcohol cravings. Seizure. The following symptoms may get worse 24 48 hours after a person has decreased or stopped alcohol use, and they may gradually improve over a period of days or weeks: Nausea and vomiting. Fatigue. Sensitivity to light and sounds. Confusion and inability to think clearly. Loss of appetite. Mood swings, irritability, depression, and anxiety. Insomnia and nightmares. The following symptoms are severe and life-threatening. When these symptoms occur together, they are called delirium tremens (DTs): High blood pressure. Increased heart rate. Trouble breathing. Seizures. These may go away along with other symptoms, or they may persist. Seeing, hearing, feeling, smelling, or tasting things that are not there (hallucinations). If you experience hallucinations, they usually begin 12 24 hours after a change in drinking patterns. Delirium tremens requires immediate hospitalization. How is this diagnosed? This condition may be diagnosed based on: Your symptoms and medical history. Your history of alcohol use. Your health care provider may ask questions about your drinking behavior. It is important to be honest when you answer these questions. A psychological assessment. A physical exam. Blood tests or urine tests to measure blood alcohol level and to rule out other causes of symptoms. MRI or CT scan. This may be done if you seem to have abnormal thinking or behaviors (altered mental status). Diagnosis can be difficult. People going through withdrawal often avoid seeking medical care and are not thinking clearly. Friends and family members play an important role in recognizing symptoms and encouraging loved ones to get treatment. How is this treated? Most people with symptoms of withdrawal can be treated outside of a hospital setting (outpatient treatment), with close monitoring such as daily check-ins with a health care provider and counseling. You may need treatment at a hospital or treatment center (inpatient treatment) if: You have a history of delirium tremens or seizures. You have severe symptoms. You are addicted to other drugs. You cannot swallow medicine. You have a serious medical condition such as heart failure. You experienced withdrawal in the past but then you continued drinking alcohol. You are not likely to commit to an outpatient treatment schedule. Treatment may involve: Monitoring your blood pressure, pulse, and breathing. IV fluids to keep you hydrated. Medicines to reduce withdrawal symptoms and discomfort (benzodiazepines). Medicine to reduce anxiety. Medicine to prevent or control seizures. Multivitamins and B vitamins. Having a health care provider check on you daily. It is important to get treatment for alcohol withdrawal early. Getting treatment early can: Speed up your recovery from withdrawal symptoms. Make you more successful with long-term stoppage of alcohol use (sobriety). If you need help to stop drinking, your health care provider may recommend a long-term treatment plan that includes: Medicines to help treat alcohol use disorder. Substance abuse counseling. Support groups. Follow these instructions at home: Take lwsg-wjj-nzvwaim and prescription medicines (including vitamin supplements) only as told by your health care provider. Do not drink alcohol. Do not drive until your health care provider approves. Have someone you trust stay with you or be available if you need help with your symptoms or with not drinking. Drink enough fluid to keep your urine pale yellow. Consider joining an alcohol support group or treatment program. These can provide emotional support, advice, and guidance. Keep all follow-up visits as told by your health care provider. This is important. Contact a health care provider if: Your symptoms get worse instead of better. You cannot eat or drink without vomiting. You are struggling with not drinking alcohol. You cannot stop drinking alcohol. Get help right away if: You have an irregular heartbeat. You have chest pain. You have trouble breathing. You have a seizure for the first time. You hallucinate. You become very confused. Summary Alcohol withdrawal is a group of symptoms that can develop when a person who drinks heavily and regularly stops drinking or drinks less. Symptoms of this condition can be mild to moderate, or they can be severe. Treatment may include hospitalization, medicine, and counseling. This information is not intended to replace advice given to you by your health care provider. Make sure you discuss any questions you have with your health care provider. Document Released: 07/23/2006 Document Revised: 09/25/2018 Document Reviewed: 06/19/2018 [employer] Patient Education 2020 [employer]. 04/23/2022 09:46:38 Alcohol Withdrawal Syndrome Alcohol Withdrawal Syndrome Alcohol withdrawal syndrome is a group of symptoms that can develop when a person who drinks heavily and regularly stops drinking or drinks less. Alcohol withdrawal syndrome can be mild or severe, and it may even be life-threatening. Alcohol withdrawal syndrome usually affects people who have alcohol use disorder, which may also be called alcoholism. Alcohol use disorder is when a person is unable to control his or her alcohol use, and drinking too much or too often causes problems at home, at work, or in relationships. What are the causes? Drinking heavily and drinking on a regular basis cause changes in brain chemistry. Over time, the body becomes dependent on alcohol. When alcohol use stops, the chemistry system in the brain becomes unbalanced and causes the symptoms of alcohol withdrawal. What increases the risk? Alcohol withdrawal syndrome is more likely to occur in people who drink more than the recommended limit of alcohol (2 drinks a day for men or 1 drink a day for non- women). It is also more likely to affect heavy drinkers who have been using alcohol for long periods of time. The more a person drinks and the longer he or she drinks, the greater the risk of alcohol withdrawal syndrome. Severe withdrawal is more likely to develop in someone who: Had severe alcohol withdrawal in the past. Had a seizure during a previous episode of alcohol withdrawal. Is elderly. Uses other drugs. Has a long-term (chronic) medical problem, such as heart, lung, or liver disease. Has depression. Does not get enough nutrients from his or her diet (malnutrition). What are the signs or symptoms? Symptoms of this condition can be mild to moderate, or they can be severe. Symptoms may develop a few hours (or up to a day) after a person changes his or her drinking patterns. During the 48 hours after he or she has stopped drinking, the following symptoms may go away or get better: Uncontrollable shaking (tremor). Sweating. Headache. Anxiety. Inability to relax (agitation). Trouble sleeping (insomnia). Irregular heartbeats (palpitations). Alcohol cravings. Seizure. The following symptoms may get worse 24 48 hours after a person has decreased or stopped alcohol use, and they may gradually improve over a period of days or weeks: Nausea and vomiting. Fatigue. Sensitivity to light and sounds. Confusion and inability to think clearly. Loss of appetite. Mood swings, irritability, depression, and anxiety. Insomnia and nightmares. The following symptoms are severe and life-threatening. When these symptoms occur together, they are called delirium tremens (DTs): High blood pressure. Increased heart rate. Trouble breathing. Seizures. These may go away along with other symptoms, or they may persist. Seeing, hearing, feeling, smelling, or tasting things that are not there (hallucinations). If you experience hallucinations, they usually begin 12 24 hours after a change in drinking patterns. Delirium tremens requires immediate hospitalization. How is this diagnosed? This condition may be diagnosed based on: Your symptoms and medical history. Your history of alcohol use. Your health care provider may ask questions about your drinking behavior. It is important to be honest when you answer these questions. A psychological assessment. A physical exam. Blood tests or urine tests to measure blood alcohol level and to rule out other causes of symptoms. MRI or CT scan. This may be done if you seem to have abnormal thinking or behaviors (altered mental status). Diagnosis can be difficult. People going through withdrawal often avoid seeking medical care and are not thinking clearly. Friends and family members play an important role in recognizing symptoms and encouraging loved ones to get treatment. How is this treated? Most people with symptoms of withdrawal can be treated outside of a hospital setting (outpatient treatment), with close monitoring such as daily check-ins with a health care provider and counseling. You may need treatment at a hospital or treatment center (inpatient treatment) if: You have a history of delirium tremens or seizures. You have severe symptoms. You are addicted to other drugs. You cannot swallow medicine. You have a serious medical condition such as heart failure. You experienced withdrawal in the past but then you continued drinking alcohol. You are not likely to commit to an outpatient treatment schedule. Treatment may involve: Monitoring your blood pressure, pulse, and breathing. IV fluids to keep you hydrated. Medicines to reduce withdrawal symptoms and discomfort (benzodiazepines). Medicine to reduce anxiety. Medicine to prevent or control seizures. Multivitamins and B vitamins. Having a health care provider check on you daily. It is important to get treatment for alcohol withdrawal early. Getting treatment early can: Speed up your recovery from withdrawal symptoms. Make you more successful with long-term stoppage of alcohol use (sobriety). If you need help to stop drinking, your health care provider may recommend a long-term treatment plan that includes: Medicines to help treat alcohol use disorder. Substance abuse counseling. Support groups. Follow these instructions at home: Take mjkc-qtf-lwtpnwl and prescription medicines (including vitamin supplements) only as told by your health care provider. Do not drink alcohol. Do not drive until your health care provider approves. Have someone you trust stay with you or be available if you need help with your symptoms or with not drinking. Drink enough fluid to keep your urine pale yellow. Consider joining an alcohol support group or treatment program. These can provide emotional support, advice, and guidance. Keep all follow-up visits as told by your health care provider. This is important. Contact a health care provider if: Your symptoms get worse instead of better. You cannot eat or drink without vomiting. You are struggling with not drinking alcohol. You cannot stop drinking alcohol. Get help right away if: You have an irregular heartbeat. You have chest pain. You have trouble breathing. You have a seizure for the first time. You hallucinate. You become very confused. Summary Alcohol withdrawal is a group of symptoms that can develop when a person who drinks heavily and regularly stops drinking or drinks less. Symptoms of this condition can be mild to moderate, or they can be severe. Treatment may include hospitalization, medicine, and counseling. This information is not intended to replace advice given to you by your health care provider. Make sure you discuss any questions you have with your health care provider. Document Released: 07/23/2006 Document Revised: 09/25/2018 Document Reviewed: 06/19/2018 [employer] Patient Education [employer]. Follow Up Care 04/22/2022 12:43:33 With:LADY NARVAEZKAYLIN Address: [address] [place] [address]- Business (1) When: Unknown [facility] History and physical note 04-22-2022 Note Date & Type Note Facility 04-22-2022 Note Chief Complaint pt c/o alcohol withdrawl, pt stated he stopped drinking around 2AM. pt stated that he drinks beer only non stop daily for 5-6 days. History of Present Illness This is 47-year-old white male past medical history of alcohol abuse, anxiety, recurrent pancreatitis, and depression who presented to emergency room with alcohol withdrawal symptoms. Patient been drinking for a long time a beer more than 12 beers a day. He stopped drinking last night. He presented to the emergency room because he cannot take it anymore has been shaking, having nausea, and having diarrhea since last night. Associated with palpitations. Denies any chest pain or shortness of breath. No fever or chills. Patient has been on outpatient [facility] multiple times. Review of Systems Constitutional: no fever, no chills, no sweats, mild weakness Skin: no Jaundice, no rash, no lesions, nopetechiae ENMT: no ear pain, no sore throat, no congestion, no hoarseness Respiratory: no shortness of breath, no cough, no orthopnea, no wheezing Cardiovascular: no chest pain, moderate palpitations, no edema Gastrointestinal: no nausea, no vomiting, no diarrhea, no GI bleeding Genitourinary: no dysuria, no hematuria, no discharge, no pain Musculoskeletal: no back pain, no trauma Neurologic: no headache, no dizziness, no numbness, no weakness Psychiatric: no sleeping problems, no irritability, no mood swings/depression. Heme/Lymph: no bleeding tendency, no bruising tendency, no petechiae, no swollen nodes Allergy/Immunologic: no seasonal allergies, no food allergies, no recurrent infections, no impaired immunity Additional ROS info: Except as noted in the above Review of Systems and in the History of Present Illness all other systems have been reviewed and are negative or noncontributory. Physical Exam Vitals & Measurements T: 36.3 ?C(Oral) HR: 82(Monitored) RR: 11 BP: 109/98 SpO2: 97% WT: 74 kg WT: 74.0 kg General: alert, no acute distress Skin: warm, dry Head: no trauma, normocephalic Neck: Trachea midline, no adenopathy, no tenderness Eye: normal conjunctiva, sclera clear ENMT: TM's clear, oral mucosa moist, no pharyngeal erythema or exudate Cardiovascular: regular rate and rhythm, normal peripheral perfusion Respiratory: Lungs CTA, respirations non labored Chest wall: no deformity. Gastrointestinal: soft, non distended, no tenderness, no guarding. Back: No tenderness, Normal ROM, Normal alignment. Extremities: no deformity, no trauma Neurological: oriented x 4, LOC appropriate for age, CN II-XII intact, motor strength equal & normal bilaterally, sensation equal & normal bilaterally, speech normal Psychiatric: cooperative, affect appropriate for age, normal judgement, normal psychiatric thoughts. Lab Results WBC: 7.8 E9/L (04/22/22 13:20:00) RBC: 5.3 E12/L (04/22/22 13:20:00) HGB: 16.8 gm/dL (04/22/22 13:20:00) Hct: 48.3 % (04/22/22 13:20:00) MCV: 91.3 fL (04/22/22 13:20:00) MCH: 31.9 pg (04/22/22 13:20:00) MCHC: 34.9 gm/dL (04/22/22 13:20:00) RDW: 15.5 % High (04/22/22 13:20:00) Platelet: 304 E9/L (04/22/22 13:20:00) MPV: 6.5 fL (04/22/22 13:20:00) Neutro Auto: 81.2 % High (04/22/22 13:20:00) Lymph Auto: 13 % Low (04/22/22 13:20:00) [place] Auto: 5.5 % (04/22/22 13:20:00) Eos Auto: 0 % (04/22/22 13:20:00) Basophil Auto: 0.3 % (04/22/22 13:20:00) Neutro Absolute: 6.3 E9/L (04/22/22 13:20:00) Lymph Absolute: 1 E9/L (04/22/22 13:20:00) [place] Absolute: 0.4 E9/L (04/22/22 13:20:00) Eos Absolute: 0 E9/L (04/22/22 13:20:00) Basophil Absolute: 0 E9/L (04/22/22 13:20:00) Glucose Lvl: 118 mg/dL (04/22/22 13:20:00) BUN: 20 mg/dL (04/22/22 13:20:00) Creatinine: 1 mg/dL (04/22/22 13:20:00) eGFR: >60 (04/22/22 13:20:00) eGFR AA: >60 (04/22/22 13:20:00) BUN/Creat Ratio: 20 (04/22/22 13:20:00) Sodium Lvl: 136 mmol/L (04/22/22 13:20:00) Potassium Lvl: 3.8 mmol/L (04/22/22 13:20:00) Chloride: 99 mmol/L Low (04/22/22 13:20:00) CO2: 24 mmol/L (04/22/22 13:20:00) AGAP: 17 mEq/L High (04/22/22 13:20:00) Calcium Lvl: 8.5 mg/dL Low (04/22/22 13:20:00) Alk Phos: 148 Int._Unit/L High (04/22/22 13:20:00) ALT: 20 Int._Unit/L (04/22/22 13:20:00) AST: 23 Int._Unit/L (04/22/22 13:20:00) Total Protein: 7.7 gm/dL (04/22/22 13:20:00) Albumin Lvl: 4.2 gm/dL (04/22/22 13:20:00) Globulin: 3.5 gm/dL (04/22/22 13:20:00) A/G Ratio: 1.2 (04/22/22 13:20:00) Bili Total: 1.3 mg/dL High (04/22/22 13:20:00) Bili Direct: 0.2 mg/dL (04/22/22 13:20:00) Bili Indirect: 1.1 mg/dL High (04/22/22 13:20:00) Lipase Lvl: 61 unit/L High (04/22/22 13:20:00) U Amph Scr: Negative (04/22/22 15:10:00) U Sheri Scr: Negative (04/22/22 15:10:00) U Benzodia Scr: Positive Abnormal (04/22/22 15:10:00) U Cannab Scr: Negative (04/22/22 15:10:00) U Cocaine Scr: Negative (04/22/22 15:10:00) U Opiate Scr: NEG1 (04/22/22 15:10:00) U PCP Scr: Negative (04/22/22 15:10:00) Ethanol Lvl: 121 mg/dL Critical (04/22/22 13:20:00) Assessment/Plan 1. Alcoho (more content not included)... [facility] Comment on above: Result Comment: Elec tronically Signed By: JAIMEE PALACIOS, Mike\.br\Date and Time Signed: 04/22/22 16:08 EDT Evaluation note Note Date & Type Note Facility Evaluation note Diagnosis Alcohol-induced acute pancreatitis, unspecified complication status Gastroesophageal reflux disease without esophagitis Esophageal reflux documented in this encounter [facility] course Narrative Note Date & Type Note [facility] course Narrative No data available for this section [facility] Hospital Discharge instructions Note Date & Type Note Facility Hospital Discharge instructions No data available for this section [facility] Progress note Note Date & Type Note Facility Progress note No data available for this section [facility] Summary Purpose Family History No Family History Records FoundNo Family History Records FoundNo Family History Records FoundNo Family History Records FoundNo Family History Records FoundNo Family History Records Found Advance Directives Documents on File Type Date Recorded 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 * Leg: Fracture (Martiniquais) documented in this encounter Assessments Diagnosis Closed fracture of distal end of left fibula, unspecified fracture morphology, initial encounter- Primary Additional Source Comments (unrecognized sect ion and content) No Status Records FoundNo Status Records FoundNo Status Records FoundNo Status Records FoundNo Status Records FoundNo Status Records Found INFORMATION SOURCE (unrecogn ized section and content) DATE CREATED AUTHOR 04/22/2018 [facility] DATE CREATED AUTHOR AUTHOR'S ORGANIZ ATION 07/28/2019 [facility] DATE CREATED AUTHOR AUTHOR'S ORGANIZ ATION 12/06/2019 [facility] DATE CREATED AUTHOR AUTHOR'S ORGANIZ ATION 12/08/2021 [facility] DATE CREATED AUTHOR AUTHOR'S ORGANIZ ATION 06/22/2022 [facility] DATE CREATED AUTHOR AUTHOR'S ORGANIZ ATION 09/27/2024 [facility] Reason for Visit (unrecogniz ed section and content) Reason Comments Ankle Pain Last night rolled le ft ankle and is having pain to left ankle. Care Team (unrecognized sect ion and content) Supply Chain Associate Relationship Specialty Start Date End Date Lady Turner, REDD [address] [place] [address] [phone] PCP - General 12/31/16 FOR RECORDS PERTAINING TO PATIENTS WHO ARE OR HAVE BEEN ENROLLED IN A CHEMICAL DEPENDENCY/SUBSTANCEABUSE PROGRAM, SOME INFORMATION MAY BE OMITTED. This clinical summary was aggregated from multiple sources. Caution should be exercised in using it in the provision of clinical care. This summary normalizes information from multiple sources, and as a consequence, information in this document may materially change the coding, format and clinical context of patient data. In addition, data may be omitted in some cases. CLINICAL DECISIONS SHOULD BE BASED ON THE PRIMARY CLINICAL RECORDS. [facility]. provides no warranty or guarantee of the accuracy or completeness of information in this document.
== END 2024-10-15 11:06 | disposition home or self-care (01) ==
LOC: LAB 11:07
PROVIDERS: PCP Nurse Practitioner Family
DX: R74.8 Abnormal levels of other serum enzymes (principal)
CPT/HCPCS: 36415; 83690